=== PATIENT | male | born 1950 | race Caucasian/White ===

== ENCOUNTER → 2017-05-08 | Outpatient (REF) | payer BC | LOC: M LAB REF 13:20 | PROVIDERS: ATTEND Internal Medicine Pulmonary Disease | DX: J44.1 Chronic obstructive pulmonary disease with (acute) exacerbation (principal) ==

== ENCOUNTER → 2017-07-16 | Outpatient (REF) | payer BC ==
[2017-07-16 14:04] LABS: INR 0.83; PROTHROMBIN TIME 11.4 SECONDS (12.4-14.5)
== END ==
LOC: M LAB REF 12:50
DX: Z51.81 Encounter for therapeutic drug level monitoring (principal); Z79.01 Long term (current) use of anticoagulants; K70.9 Alcoholic liver disease, unspecified
CPT/HCPCS: 85610

== ENCOUNTER → 2019-01-27 | Outpatient (CLI) | payer BC ==
--- NOTE | 2019-01-27 08:22 | REP ---
Low-dose lung screening CT of the chest: The study is performed without IV contrast. Images are presented at lung windowing only. Comparisons are chest CT studies dated 10/14/2016 and 07/22/2013. There are no lung masses or nodules. There are no infiltrates or effusions. There is a chronic calcified endobronchial lesion within the proximal main bronchus of the right middle lobe, unchanged. There is chronic postobstructive pneumonitis/scarring in the right middle lobe distal to this , unchanged. There is chronic curvilinear scarring inferiorly in the lingula, unchanged. There is a tiny calcified granuloma in the lateral segment right middle lobe on image 57, unchanged. 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 There is a coronary artery calcified atheroma, unchanged. Impression: There are chronic stable findings as described. Category 1 low-dose lung screening CT. The probability of malignancy is less than 1%. Depending on risk factors, consider annual follow-up low-dose lung screening CT. Electronically Signed by Checo Ruiz MD 01/27/2019 08:13 A
== END ==
LOC: M RAD 07:43
PROVIDERS: ATTEND Internal Medicine Pulmonary Disease
DX: Z12.2 Encounter for screening for malignant neoplasm of respiratory organs (principal); Z87.891 Personal history of nicotine dependence

== ENCOUNTER 2019-09-20 12:51 | Emergency (ER) | payer BC ==
[~2019-09-20] VITALS: Ht 170.2 cm; Wt 86.2 kg
[2019-09-20 12:52] VITALS: BP 190/79
[2019-09-20 13:49] LABS: BASO # 0.1 10^3/uL (0.0-0.2); BASO % 0.7 % (0.0-1.0); EOS # 0.1 10^3/uL (0.0-0.5); EOS % 1.4 % (0.0-3.0); HEMATOCRIT 47.1 % (42.0-52.0); HEMOGLOBIN 15.3 g/dl (13.5-17.5); LYMPH # 1.4 10^3/uL (1.5-5.0); MEAN CORPUSCULAR HEMOGLOBIN 31.4 pg (27.0-33.0); MEAN CORPUSCULAR HGB CONC 32.5 g/dl (32.0-36.5); MEAN CORPUSCULAR VOLUME 96.5 fl (80.0-96.0); MONO # 0.7 10^3/uL (0.0-0.8); MONO % 9.2 % (0.0-5.0); NEUTROPHILS # 5.4 10^3/uL (1.5-8.5); NEUTROPHILS % 70.4 % (36.0-66.0); PLATELET COUNT, AUTOMATED 174 10^3/uL (150-450); RED BLOOD COUNT 4.88 10^6/uL (4.30-6.10); WHITE BLOOD COUNT 7.7 10^3/uL (4.0-10.0)
[2019-09-20 14:08] LABS: ALBUMIN 4.3 GM/DL (3.2-5.2); BILIRUBIN,DIRECT 0.2 MG/DL (0.0-0.2); BILIRUBIN,TOTAL 0.6 MG/DL (0.2-1.0); CALCIUM LEVEL 9.7 MG/DL (8.8-10.2); CREATININE FOR GFR 1.43 MG/DL (0.70-1.30); GLOMERULAR FILTRATION RATE 52.4 (>49); POTASSIUM SERUM 4.3 MEQ/L (3.5-5.1); TOTAL PROTEIN 7.3 GM/DL (6.4-8.2)
[2019-09-20] MEDS ORDERED: ISOVUE-370 76% 100ML VIAL (Q9967) As Ordered ONE (14:23)
[2019-09-20 14:31] LABS: APPEARANCE, URINE HAZY (CLEAR); BACTERIA, URINE AUTO NEGATIVE (NEGATIVE); BILIRUBIN, URINE AUTO NEGATIVE (NEGATIVE); BLOOD, URINE BLOOD NEGATIVE (NEGATIVE); COLOR, URINE YELLOW (YELLOW); GLUCOSE, URINE (UA) AUTO NEGATIVE (NEGATIVE); KETONE, URINE AUTO TRACE mg/dL (NEGATIVE); LEUKOCYTE ESTERASE, URINE AUTO NEGATIVE (NEGATIVE); MUCUS, URINE SMALL (NEGATIVE); NITRITE, URINE AUTO NEGATIVE (NEGATIVE); PROTEIN, URINE AUTO 1+ mg/dL (NEGATIVE); RBC, URINE AUTO 2 /HPF (0-3); SPECIFIC GRAVITY URINE AUTO 1.023 (1.002-1.035); SQUAMOUS EPITHELIAL CELL UR AU 1 /HPF (0-6); UROBILINOGEN, URINE AUTO 0.2 mg/dL (0.0-2.0); WBC, URINE AUTO 7 /HPF (0-3)
--- NOTE | 2019-09-20 14:51 | REP ---
Clinical: Left-sided abdominal pain. Technique: Axial contrast enhanced images from the lung bases to the pubic symphysis with coronal and sagittal re-formations using 100 ml Isovue 370 intravenous contrast material. Findings: Focal area of fatty infiltration just lateral to the collapsed normal appearing descending colon suggests focal epiploic appendagitis (images 84 - 99). Few scattered colonic diverticula noted without acute diverticulitis. No bowel obstruction or further acute inflammatory process. Normal terminal ileum and appendix are identified in the right lower quadrant. Hepatomegaly and fatty infiltration to the liver noted. Spleen, pancreas, gallbladder, bilateral adrenal glands and kidneys are normal. Pelvis demonstrates normal bladder and age appropriate prostate/seminal vesicles. Small fat containing left inguinal hernia identified. No ascites. No free air. No adenopathy. Atherosclerotic changes to the aorta and vasculature without aneurysm or dissection. Musculoskeletal structures demonstrate age-related degenerative changes without focal acute abnormality. Impression: 1. Findings most compatible with acute epiploic appendagitis along the distal descending colon. 2. No bowel obstruction or acute inflammatory process to the enteric system otherwise appreciated. 3. Few scattered colonic diverticula without acute diverticulitis. 4. Hepatomegaly and fatty infiltration to the liver without focal hepatic lesion. Electronically Signed by Nghia Garza MD 09/20/2019 02:42 P
[2019-09-20] MEDS ORDERED: ACETAMINOPHEN 325 MG TAB PO ONE (15:15)
[2019-09-20] MEDS ORDERED: KETOROLAC 30 MG/ML VIAL (J1885) IV ONE (15:15)
--- NOTE | 2019-09-21 15:39 | ED PDOC ---
Post-Departure Follow-Up dr diamond faxed fomral report of ct abd/p for fu [place] Barboza MD Sep 21, 2019 15:39
== END 2019-09-20 15:35 | disposition home or self-care (01) ==
LOC: M ED 12:51
DX: K65.9 Peritonitis, unspecified (principal); K57.30 Diverticulosis of large intestine without perforation or abscess without bleeding; K21.9 Gastro-esophageal reflux disease without esophagitis; K76.0 Fatty (change of) liver, not elsewhere classified; R16.0 Hepatomegaly, not elsewhere classified; J45.909 Unspecified asthma, uncomplicated; F17.210 Nicotine dependence, cigarettes, uncomplicated
CPT/HCPCS: 74177; 80048; 80076; 81001; 83690; 85025; 96374; 99284; J1885; Q9967

== ENCOUNTER → 2020-03-02 | Outpatient (CLI) | payer BC ==
[~2020-03-02] MED LIST: ADVA115A INH; ALPR0.5T3; ASPI81TA86 PO; ATOR40TA75 PO; CLOP75TA2; FENO145T7 PO; FLUTISP INH; LEVO50TA5 PO; MAGN400C2 PO; METO1TAB32 PO; PANT40TA29 PO
== END ==
LOC: M LABSMTC 11:45
PROVIDERS: ATTEND Anesthesiology
DX: Z01.812 Encounter for preprocedural laboratory examination (principal); Z20.828 Contact with and (suspected) exposure to other viral communicable diseases
CPT/HCPCS: C9803; U0003

== ENCOUNTER 2020-03-07 08:06 | Day surgery (SDC) | payer BC ==
[~2020-03-07] VITALS: Ht 170.2 cm; Wt 78.9 kg
[~2020-03-07 08:06] MED LIST changes: +NS 1,000 ML IV ONE
[2020-03-07] MEDS ORDERED: propofoL 200 MG/20 ML VIAL As Ordered ONE ×2 (09:26→09:37)
[2020-03-07 10:05] VITALS: BP 118/61
--- NOTE | 2020-03-08 11:38 | ROOR ---
Patient Name: Srini Teran Procedure Date: 03/07/2020 8:41 AM Date of : 1950 Age: 69 Room: [facility] Gender: Male Note Status: Finalized Procedure: Colonoscopy Indications: High risk colon cancer surveillance: Personal history of colonic polyps Providers: Viktor HENDERSON MD Referring MD: MEGAN NAVAS JR, MD Requesting Provider: Medicines: Monitored Anesthesia Care Complications: No immediate complications. Procedure: Pre-Anesthesia Assessment: - The heart rate, respiratory rate, oxygen saturations, blood pressure, adequacy of pulmonary ventilation, and response to care were monitored throughout the procedure. The Colonoscope was introduced through the anus and advanced to the cecum, identified by appendiceal orifice and ileocecal valve. The colonoscopy was performed without difficulty. The patient tolerated the procedure well. The quality of the bowel preparation was good. Findings: The perianal and digital rectal examinations were normal. Five sessile polyps were found in the sigmoid colon, splenic flexure and hepatic flexure. The polyps were small in size. These polyps were removed with a cold snare. Resection and retrieval were complete. Mild sigmoid diverticulosis and small internal hemorrhoids. The exam was otherwise without abnormality on direct and retroflexion views. Impression: - Five small polyps in the sigmoid colon, at the splenic flexure and at the hepatic flexure, removed with a cold snare. Resected and retrieved. - Mild sigmoid diverticulosis and small internal hemorrhoids. - The examination was otherwise normal on direct and retroflexion views. Recommendation: - Repeat colonoscopy in 3 years for surveillance. - Resume Plavix (clopidogrel) at prior dose in 2 days. Viktor HENDERSON MD 03/07/2020 9:44:38 AM Number of Addenda: 0 Note Initiated On: 03/07/2020 8:41 AM Estimated Blood Loss: Estimated blood loss: none.
== END 2020-03-07 10:14 | disposition home or self-care (01) ==
LOC: M OPP 08:06
PROVIDERS: ATTEND Internal Medicine Gastroenterology
DX: Z12.11 Encounter for screening for malignant neoplasm of colon (principal); Z86.010 Personal history of colon polyps; Z80.0 Family history of malignant neoplasm of digestive organs; K63.5 Polyp of colon; I25.10 Atherosclerotic heart disease of native coronary artery without angina pectoris; I73.9 Peripheral vascular disease, unspecified; E03.9 Hypothyroidism, unspecified; J44.9 Chronic obstructive pulmonary disease, unspecified; F17.220 Nicotine dependence, chewing tobacco, uncomplicated; K57.30 Diverticulosis of large intestine without perforation or abscess without bleeding; Z79.82 Long term (current) use of aspirin; Z79.899 Other long term (current) drug therapy; Z85.21 Personal history of malignant neoplasm of larynx

== ENCOUNTER → 2020-03-23 | Outpatient (CLI) | payer BC ==
[~2020-03-23] MED LIST changes: -NS 1,000 ML IV ONE
--- NOTE | 2020-03-29 13:03 | REP ---
LOW-DOSE LUNG SCREENING EXAM COMPARISON: 01/27/2019. FINDINGS: The bilateral lung ruffin are relatively well-aerated. There is a chronic partially calcified endobronchial lesion in the proximal right middle lobe bronchus causing postobstructive chronic fibroatelectatic changes, which remain stable. There is an accessory bronchus arising medially from the bronchus intermedius, which demonstrates a small amount of endobronchial secretions or calcifications similar to prior examination. Minimal scattered scarring is identified at the lung bases. There is a small 3-mm noncalcified somewhat triangular density in the left lower lobe (Image 48), which is a new finding. No further consolidation, nodule, or mass lesion noted. No effusion. No pneumothorax. Atherosclerotic changes to the thoracic aorta and coronary arteries again noted. IMPRESSION: * Chronic changes as described above remain stable. * New 3-mm noncalcified density in the left lower lobe. This is now a lung-RADS Category 2 examination. A 12 month low-dose CT follow-up examination is recommended. MTDD
== END ==
LOC: M RAD 10:54
PROVIDERS: ATTEND Internal Medicine Pulmonary Disease
DX: Z12.2 Encounter for screening for malignant neoplasm of respiratory organs (principal); F17.218 Nicotine dependence, cigarettes, with other nicotine-induced disorders; R91.8 Other nonspecific abnormal finding of lung field; I70.0 Atherosclerosis of aorta; I25.10 Atherosclerotic heart disease of native coronary artery without angina pectoris

== ENCOUNTER 2020-08-10 06:49 | Inpatient (IN) | payer BC, MEDICARE ==
[2020-08-10] VITALS (9 sets, daily range): BP systolic 97–139; BP diastolic 58–87; O2SAT 92–95
[~2020-08-10] VITALS: Ht 170.2 cm; Wt 86.5 kg
--- OUTSIDE RECORDS SUMMARY | 2020-08-10 07:00 | CCD | Continuity of Care Document ---
Author Author KATELYN DANGELO, Srini AMADOR AN Organization Unknown Address [address] [address] Phone [phone] Care Team Providers Care Medical Instrument Cable Fabricator Name Role Phone Checo Kim M.D. AUTM [phone] Walter Bo AUTM [phone] Yuri Kaplan MD @ [facility] AUTM [phone] Julio C Mansfield MD AUTM [phone] AUTM Unavailable Problems Active Problems Provider Date History Personal Malignant Neoplasm Larynx Sheridan L Page DO Onset: 06/10/2012 Chronic rhinitis Sheridan L Page DO Onset: 06/10/2012 Iatrogenic hypothyroidism Sheridan L Page DO Onset: 012 Edema of larynx Sheridan L Page DO Onset: 06/10/2012 Gastroesophageal reflux disease Sheridan L Page DO Onset: 1 08/11/2011 Panic disorder without agoraphobia Sheridan L Page DO Onset : 06/10/2012 Cough Sheridan L Page DO Onset: 06/10/2012 Globus Sensation Sheridan L Page DO Onset: 06/10/2012 Heartburn Viktor Cao MD Onset: 06/10/2012 Internal hemorrhoids without complication Viktor Cao MD Onset: 06/10/2012 Benign neoplasm of colon Viktor Cao MD Onset: 06/10/20 12 Screening for malignant neoplasm of colon Viktor Cao MD Onset: 06/10/2012 Radiation injury Sheridan L Page DO Onset: 06/10/2012 Family history of malignant neoplasm of gastrointestinal tra ct Viktor Cao MD Onset: 06/10/2012 Neoplasm of uncertain behavior of larynx Viktor Cao MD Onset: 06/10/2012 Hypothyroidism Sheridan L Page DO Onset: 06/10/2012 Abnormal weight gain Sheridan L Page DO Onset: 06/10/2012 Candidiasis Sheridan L Page DO Onset: 06/10/2012 Dysphagia Sheridan L Page DO Onset: 06/10/2012 Malignant tumor of glottis Sheridan L Page DO Onset: 2011 Anxiety state Sheridan Cortés Page DO Onset: 06/10/2012 Deviated nasal septum Sheridan Cortés Page DO Onset: 06/10/2012 Hypertrophy of nasal turbinates Sheridan Cortés Page DO Onset: 1 08/11/2011 Epistaxis Teto Quan MD Onset: 05/17/2013 Other Nonspecified Abnormal Finding Of Lung Field Miryam Nogueira M.D. Onset: 08/04/2013 Chronic obstructive lung disease Juan Scott Onset: 08/04/2013 Difficulty breathing Miryam Nogueira M.D. Onset: Posterior rhinorrhea Miryam Nogueira M.D. Onset: Ex-smoker Miryam Nogueira M.D. Onset: 10/2013 Body Mass Index 28.0-28.9 Adult Dorcas Scott Onset: 09/16/2013 Overweight Miryam Nogueira M.D. Onset: 10/2013 History of polyp of colon Viktor Cao MD Onset: 014 Difficulty speaking Teto Quan MD Onset: 05/05/2014 Pulmonary emphysema Miryam Nogueira M.D. Onset: Cyst of oral soft tissue Teto Quan MD Onset: 10/27/19 15 Malignant tumor of larynx Teto Quan MD Onset: 015 Centriacinar emphysema Miryam Nogueira M.D. 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 On set: 10/25/2015 Other nonspecific abnormal finding of lung field Miryam Solano M.D. Onset: 10/30/2015 Chronic obstructive pulmonary disease with (acute) exa cerbation Miryam Nogueira M.D. Onset: 04/21/2018 Hemoptysis Miryam Nogueira M.D. Onset: Disorder of lip Teto Quan MD Onset: 04/21/2018 Nicotine dependence, cigarettes, with other nicotine-i nduced disorders Teto Quan MD Onset: 04/21/2018 Essential hypertension Viktor Cao MD Onset: 09/07/2019 Social History Type Date Description Comments Sex Unknown ETOH Use 8-10 Drinks per Day Tobacco Use Start: Unknown End: Unknown Patient is a former smoker hx: 1 1/2ppd x 40yrs, quit cigs 2010, smoked cigars x 5 yrs and quit 2015 Tobacco Use Start: Unknown Patient is a current smoker, smo kes every day 2 cigars daily since late december 2019 Smoking Status Reviewed: 03/09/20 Patient is a former smoker hx : 1 1/2ppd x 40yrs, quit cigs 2010, smoked cigars x 5 yrs and quit 2015 Allergies, Adverse Reactions, Alerts Description No Known Drug Allergies Medications Active Medications SIG Qnty Indications Ordering Provide r Date Chantix 0.5mg Tablets starting month sarabjit as directed 1taely Feliciano MD 03/09/2020 Chantix 1mg Tablets co ntinuing month paks 1taely Feliciano MD 03/09/2020 Acapella Misc G reen. use twice daily and prn R91.8 Miryam Nogueira M.D. Albuterol Sulfate (2 .5mg/3ML) 0.083% Nebulizer 1 vial every 4 hours as needed dx: j44.9 360ml J44.9 Miryam Nogueira M.D. 07/25/2015 Aerochamber Plus Misc as directed with jamee 1units Miryam Nogueira M.D. Fluticasone Propionate 50mcg/Act Suspension 2 sprays to each nostril daily/prn 1bottles J31.0 Miryam Nogueira M.D. 02/07/2014 Ventolin HFA 108(90Base) mcg/Act A erosol 2 puffs q4 hour prn 18gm Meng Feliciano MD 08/04/2013 Atorvastatin Calcium 40mg Tablets once a day Unknown Metoprolol Succinate ER 25mg Tablets ER 24HR 1 by mouth every day Unknown 000 Clopidogrel Bisulfate 75mg Tablets by mouth daily Unknown Benzonatate 100mg Capsules 1 tab by mouth daily Unknown Advair HFA 115-21mcg/Act Aerosol 2 puff twice a day Unknown Magnesium Oxide 500mg Tablets 1 by mouth every day 60tabs Unknown Fenofibrate 145mg Tablets 1 p o qd Unknown Pantoprazole Sodium 40mg Tablets D R 1 by mouth every day 60tabs Unknown Nitrostat 0.4mg Tablets Sub sublingual every 5 mins x 3 doses for chest pain 60tabs Unknown Aspirin Ec 81mg Tablets DR 1 po qd 30tabs Unknown Levothyroxine Sodium 50mcg Tablets one po daily 30tabs 244.8 Unknown Alprazolam 0.5mg Tablets 1/2 to 1 tab bid prn 30tabs 300.00 Unknown History Medications Amoxicillin 500mg Tablets take 4 tablets by mouth 1 hour prior to arrival time for procedure. 4tabs Viktor Cao MD 03/01/2020 - 07/09/2019 Immunizations Description No Information Available Vital Signs Date Vital Result Comment 06/27/2020 9:13am Height 67 inches 5'7" Weight 187.00 lb BMI (Body Mass Index) 29.3 kg/m2 Ragan Body Weight 148 lb Weight 84.823 kg BSA (Body Surface Area) 1.97 m2 03/09/2020 10:09am BP Systolic 130 mmHg BP Diastolic 78 mmHg Heart Rate 90 /min O2 % BldC Oximetry 96 % Room Air Height 67 inches 5'7" Weight 175.00 lb BMI (Body Mass Index) 27.4 kg/m2 Ragan Body Weight 148 lb Weight 79.380 kg BSA (Body Surface Area) 1.91 m2 Results Test Acquired Date Facility Test Result H/L Range Note FVL/[place] 03/09/2020 [facility] SEE IMAGE FVC-Pred 3.97 L FVC-Pre 2.44 L FVC-%Pred-Pre 61 L FVC-LLN 3.11 L Fev1-Pred 2.92 L Fev1-Pre 1.40 L Fev1-%Pred-Pre 48 L Fev1-LLN 2.19 L Fev6-Pred 3.73 L Fev6-Pre 2.41 L Fev6-%Pred-Pre 64 L Fev6-LLN 2.90 L Qco6xas-Ywoz 74 % Fka0aps-Pts 57 % Iso2cvi-%Pred-Pre 77 % Ofz9mhb-ZOV 64 % Phb9mpj-Daaw 94 % Phu3ggi-Cdw 99 % Ppx0srb-%Pred-Pre 104 % FEFMax-Pred 7.80 L/E/sec FEFMax-Pre 3.39 L/E/sec FEFMax-%Pred-Pre 43 L/E/sec FEFMax-LLN 5.67 L/E/sec Aae8110-Tnfc 2.25 L/E/sec Cxc0944-Gdg 0.67 L/E/sec Xev8936-%Pred-Pre 29 L/E/sec Htb4314-VSJ 0.78 L/E/sec ExpTime-Pre 6.52 sec Ohx9jdv8-Odfq 78 % Fki9sqm6-Ufa 58 % Mjo9yfo4-%Pred-Pre 74 % Tmo2uov5-TJH 69 % Laboratory test finding 03/07/2020 [facility] [address] [id number] [phone] Pathology Request For Service (SEE NOTE) 1 1 FINAL DIAGNOSIS A - Colon, splenic flexure polyp, polypectomy: Tubular adenoma, fragments. Separate fragments of hyperplastic polyp. B - Colon, hepatic flexure polyp, polypectomy: Tubular adenoma, fragments. Separate fragments of hyperplastic polyp. C - Sigmoid colon polyp, polypectomy: Tubular adenoma, fragments. Separate fragments of hyperplastic polyp. 03/08/2020 - 1150 CLINICAL DIAGNOSIS Colon polyps, family history colon cancer 03/07/2020 - 1417 GROSS DIAGNOSIS A - Received in formalin labeled "colon polyps splenic flexure" consists of a fragment of tissue, 0.2 x 0.2 x 0.2 cm. All in one. B - Received in formalin labeled "colon polyp hepatic flexure" consists of a fragment of tissue, 0.3 x 0.2 x 0.1 cm. All in one. C - Received in formalin labeled "polyp sigmoid colon" consists of a fragment of tissue, 0.2 x 0.2 x 0.1 cm. All in one. 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 ntithrombotics/antiplatelets Assessments Date Code Description Provider 06/27/2020 Z85.21 Personal history of malignant ne oplasm of larynx Teto Quan MD 03/09/2020 J44.9 Chronic obstructive pulmonary di sease, unspecified Meng Feliciano MD 03/09/2020 R91.8 Other nonspecific abnormal findi ng of lung field Meng Feliciano MD 03/09/2020 F17.218 Nicotine dependence, cigarettes, with other nicotine-induced disorders Meng Feliciano MD 03/09/2020 Z79.02 halfway (current) use of antit hrombotics/antiplatelets Meng Feliciano MD 03/07/2020 Z12.11 Encounter for screening for tammy gnant neoplasm of colon Viktor Cao MD 03/07/2020 Z86.010 Personal history of colonic poly ps Viktor Cao MD 03/07/2020 D12.3 Benign neoplasm of transverse co latoya Viktor Cao MD 03/07/2020 D12.5 Benign neoplasm of sigmoid colon Viktor Cao MD Plan of Treatment Future Appointment(s):* 10/18/2020 1:30 pm - Meng Feliciano MD at [facility] Pulmonary/Thoracic 06/27/2020 - Teto Quan MD* Z85.21 Personal history of malignant neoplasm of larynx Functional Status Functional Condition Comment Date Status Independent with all ADL's Activ e Independent with all IADL's Acti ve Mental Status Mental Condition Comment Date Status Cognitive ability not impaired A ctive Referrals Refer to Dr Reason for Referral Status Appt Date Radiology/Procedure PER MARIN AT [facility] [id number] Closed
--- OUTSIDE RECORDS SUMMARY | 2020-08-10 07:00 | CCD | Continuity of Care Document ---
Author Author Srini Kaplan MD Organization Unknown Address [address] [facility] [address] [place] [address] Phone [phone] Care Team Providers Care Cable Television Access Coordinator Name Role Phone Miryam Nogueira Jamison AUTM [phone] Teto Quan MD AUTM [phone] Piter Troncoso MD AUTM [phone] AUTM Unavailable Yuri Kaplan JR, MD AUTM Unavailable Problems Active Problems Provider Date Malignant neoplastic disease Shraddha Yang DO Onset: 12/2012 Nondependent alcohol abuse, continuous Shraddha Yang DO O nset: 12/04/2012 Alcoholic fatty liver Shraddha Yang DO Onset: 12/04/2012 Coronary arteriosclerosis Shraddha Yang DO Onset: 013 Social History Type Date Description Comments Sex Unknown ETOH Use consumes 4-5 beers per day Tobacco Use Start: Unknown End: Unknown Patient is a former smoker 1 07/01 ppd x 35 yrs, quit 2010 Tobacco Use Start: Unknown Patient is a current smoker, smo kes some days occasional cigars Allergies, Adverse Reactions, Alerts Description No Known Drug Allergies Medications Active Medications SIG Qnty Indications Ordering Provide r Date Atorvastatin Calcium 80mg Tablets 1 by mouth every day 90tabs Yuri Kaplan MD 07/29/2020 Clopidogrel Bisulfate 75mg Tablets Take One Tablet By Mouth Every Day 90tabs Yuri Kaplan MD 04/04/2020 Metoprolol Succinate ER 25mg Tablets ER 24HR 1 by mouth every day 90tabs Shraddha Yang DO 12/29 Magnesium 500mg Capsules 1 by mouth bid Shraddha Yang DO 01/20/2018 Ventolin HFA 108(90Base) mcg/Act A erosol 2 puffs four times a day as needed 18gm Shraddha YangDO 09/15/2015 Advair HFA 115-21mcg/Act Aerosol Inhale Two Puffs By Mouth Twice A Day 12units Shraddha Yang,DO 0 11/23/2013 Aspirin 81mg Tablets 1 po qd Shraddha YangDO 12/04/2012 Nitrostat 0.4mg Tablets Sub one under tongue q 5 minutes x 3 prn for chest discomfort 25tabs Burak Beavers M.D. 12/04/2012 Fluticasone Propionate 50mcg/Act Suspension [place] 2 Sprays In Each Nostril AT Bedtime as Needed 16units Shraddha Yang DO 12/04/2012 Levothyroxine Sodium 50mcg Tablets Take One Tablet By Mouth Every Day 90tabs Shraddha Yang, Fenofibrate 145mg Tablets Take 1 Tablet By Mouth Once Daily 90tabs Shraddha Yang DO 12/04/2012 Pantoprazole Sodium 40mg Tablets D R take one tablet by mouth every day 90tabs Yuri Kaplan MD 12/04/2012 Alprazolam 0.5mg Tablets 1 by mouth nightly as needed anxiety use only as needed 30tabs Col daniela Kaplan MD Benzonatate 100mg Capsules take 1 capsule by mouth every 8 hours as needed 180caps Yuri mcnulty MD Immunizations CPT Code Status Date Vaccine Lot # [id number] Refused 06/07/2013 Fluvirin Virus Vaccine Vital Signs Date Vital Result Comment 07/26/2020 8:03am BP Systolic 126 mmHg BP Diastolic 76 mmHg Heart Rate 64 /min Height 66 inches 5'6" Weight 184.00 lb BMI (Body Mass Index) 29.7 kg/m2 03/02/2020 9:32am BP Systolic 130 mmHg BP Diastolic 76 mmHg Heart Rate 78 /min Height 66 inches 5'6" Weight 176.00 lb O2 % BldC Oximetry 94 % BMI (Body Mass Index) 28.4 kg/m2 Results Test Acquired Date Facility Test Result H/L Range Note Complete Blood Count 07/26/2020 [facility] [place]: [place] [address] [phone] WBC 5.9 x10*3/UL 4.1 - 10.9 RBC 4.81 x10*6/UL 4.20 - 6.30 Hemoglobin 15.0 g/dL 12.0 - 18.0 Hematocrit 43.3 % 37.0 - 51.0 MCV 89.9 fL 80.0 - 97.0 MCH 31.1 pg 26.0 - 32.0 MCHC 34.6 g/dL 31.0 - 38.0 RDW 14.6 % High 11.6 - 13.7 PLT 222 x10*3/UL 140 - 440 MPV 9.9 FL 7.8 - 11.0 Lymph % 28.8 % 10.0 - 58.5 Mid % 5.4 % 1.7 - 9.3 Neut % 65.8 % 37.0 - 92.0 Lymph # 1.7 x10*3/UL 0.6 - 4.1 Mid # 0.3 x10*3/UL 0.1 - 0.6 Neut # 3.9 x10*3/UL 2.0 - 7.8 Laboratory test finding 07/26/2020 [facility] [place]: [place] [address] [phone] PSA 0.52 ng/mL <4.00 1 Comprehensive Chem Profile 07/26/2020 [facility] [place]: [place] [address] [phone] Glucose 122 mg/dL High 74 - 99 2 BUN 10 mg/dL 7 - 18 Creatinine 1.1 mg/dL 0.6 - 1.3 Sodium 138 mEq/L 136 - 145 Potassium 4.9 mEq/L 3.5 - 5.1 Chloride 100 mEq/L 98 - 107 Carbon Dioxide 30 mEq/L 21 - 32 Calcium 9.5 mg/dL 8.5 - 10.1 Alk. Phosphatase 84 mg/dL 46 - 116 Total Bilirubin 0.4 mg/dL 0.2 - 1.0 Ast (Sgot) 38 U/L High 15 - 37 Alt (SGPT) 47 U/L 12 - 78 Albumin 4.2 g/dL 3.4 - 5.0 Total Protein 7.4 g/dL 6.4 - 8.2 A/G Ratio 1.31 CALC 1.00 - 1.90 GFR >= 60 mL/min >60 GFR >= 60 mL/min >60 3 Lipid Profile 07/26/2020 [facility] [place]: [place] [address] [phone] Cholesterol 171 mg/dL 131 - 200 Triglycerides 142 mg/dL 30 - 150 HDL Cholesterol 45 mg/dL 35 - 60 LDL (Calculated) 98 CALC 50 - 159 Laboratory test finding 07/26/2020 [facility] [place]: [place] [address] [phone] Thyroid Stimulating Hormone 2.26 uIU/mL 0.3 6 - 3.74 Laboratory test finding 03/07/2020 [facility] [address] [place] [address] [phone] Pathology Request For Service (SEE NOTE) 4 1 This assay was performed on the Capricor EXL using the B- Galactosidase/CPRG methodology and should not be compared interchangeably with other methods. The PSA should not be used alone as a screening test for the presence or absence of malignant disease. 2 100-125 mg/dL PRE-DIABET ES/FASTING >126 mg/dL DIABETES/FASTING 3 CHRONIC KIDNEY DISEASE STAGI NG PER NKF STAGE I & II GFR >= 60 NORMAL TO MILDLY DECREASED STAGE III GFR 30-59 MODERATELY DECREASED STAGE IV GFR 15-29 SEVERELY DECREASED STAGE V GFR <15 VERY LITTLE GFR LEFT ESRD GFR <15 ON CENTRAL OFFICE TECHNICIAN 4 FINAL DIAGNOSIS A - Colon, splenic flexure [...] 03/08/2020 1151 Procedures Date Code Description Status 03/07/2020 [id number] Colonoscopy Completed 10/07/2013 [id number] Colonoscopy Completed 06/30/2011 [id number] Colonoscopy Completed Medical Devices Description No Information Available Encounters Type Date Location Provider Dx Diagnosis [facility] I[facility] Athscl heart disease of enterprise coronary artery w/o ang pctrs Z95.5 Presence of coronary angiopl asty implant and graft I73.9 Peripheral vascular disease, unspecified Z95.820 Peripheral vascular angiopla sty status w implants and grafts J44.9 Chronic obstructive pulmonar y disease, unspecified E03.9 Hypothyroidism, unspecified E78.00 Pure hypercholesterolemia, u nspecified F41.9 Anxiety disorder, unspecifie d C32.9 Malignant neoplasm of larynx , unspecified M25.512 Pain in left shoulder Z86.010 Personal history of colonic polyps Z12.5 Encounter for screening for malignant neoplasm of prostate Office Visit 03/02/2020 [facility] Z01.810 Encounter for preprocedural cardiovascul ar examination Z86.010 Personal history of colonic polyps I25.10 Athscl heart disease of [place] ve coronary artery w/o ang pctrs Z95.5 Presence of coronary angiopl asty implant and graft I73.9 Peripheral vascular disease, unspecified Z95.820 Peripheral vascular angiopla sty status w implants and grafts J44.9 Chronic obstructive pulmonar y disease, unspecified E03.9 Hypothyroidism, unspecified E78.00 Pure hypercholesterolemia, u nspecified Assessments Date Code Description Provider 07/26/2020 I25.10 Atherosclerotic hear t disease of enterprise coronary artery without angina pectoris Yuri Kaplan MD 07/26/2020 Z95.5 Presence of coronary angioplasty implant and graft Yuri Kaplan MD 07/26/2020 I73.9 Peripheral vascular disease, uns pecified Yuri Kaplan MD 07/26/2020 Z95.820 Peripheral vascular angioplasty status with implants and grafts Yuri Kaplan MD 07/26/2020 J44.9 Chronic obstructive pulmonary di sease, unspecified Yuri Kaplan MD 07/26/2020 E03.9 Hypothyroidism, unspecified Bg ins Eleonora Kaplan MD 07/26/2020 E78.00 Pure hypercholesterolemia, unspe cified Yuri Kaplan MD 07/26/2020 F41.9 Anxiety disorder, unspecified Co lltrice Kaplan MD 07/26/2020 C32.9 Malignant neoplasm of larynx, un specified Yuri Kaplan MD 07/26/2020 M25.512 Pain in left shoulder Yuri Kaplan MD 07/26/2020 Z86.010 Personal history of colonic poly ps Yuri Kaplan MD 07/26/2020 Z12.5 Encounter for screening for tammy gnant neoplasm of prostate Yuri Kaplan MD 03/02/2020 Z01.810 Encounter for preprocedural card iovascular examination Yuri Kaplan MD 03/02/2020 Z86.010 Personal history of colonic poly ps Yuri Kaplan MD 03/02/2020 I25.10 Atherosclerotic hear t disease of enterprise coronary artery without angina pectoris Yuri Kaplan MD 03/02/2020 Z95.5 Presence of coronary angioplasty implant and graft Yuri Kaplan MD 03/02/2020 I73.9 Peripheral vascular disease, uns pecified Yuri Kaplan MD 03/02/2020 Z95.820 Peripheral vascular angioplasty status with implants and grafts Yuri Kaplan MD 03/02/2020 J44.9 Chronic obstructive pulmonary di sease, unspecified Yuri Kaplan MD 03/02/2020 E03.9 Hypothyroidism, unspecified Bg ins Eleonora Kaplan MD 03/02/2020 E78.00 Pure hypercholesterolemia, unspe cified Yuri Kaplan MD Plan of Treatment Future Appointment(s):* 01/31/2021 8:20 am - [facility] 07/26/2020 - Yuri Kaplan MD* I25.10 Atherosclerotic heart disease of enterprise coronary artery without angina pectoris * Z95.5 Presence of coronary angioplasty implant and graft * I73.9 Peripheral vascular disease, unspecified * Z95.820 Peripheral vascular angioplasty status with implants and grafts * J44.9 Chronic obstructive pulmonary disease, unspecified * E03.9 Hypothyroidism, unspecified * E78.00 Pure hypercholesterolemia, unspecified * F41.9 Anxiety disorder, unspecified * C32.9 Malignant neoplasm of larynx, unspecified * M25.512 Pain in left shoulder * Z86.010 Personal history of colonic polyps * Z12.5 Encounter for screening for malignant neoplasm of prostate Functional Status Description No Information Available Mental Status Description No Information Available Referrals Description No Information Available
--- OUTSIDE RECORDS SUMMARY | 2020-08-10 07:00 | CCD | Continuity of Care Document ---
Author Author Srini Kaplan MD Organization Unknown Address [address] [facility] [address] [place] [address] Phone [phone] Care Team Providers Care Truck Hop Name Role Phone Miryam Nogueira Jamison AUTM [phone] Teto Quan MD AUTM [phone] Piter Troncoso MD AUTM AUTM Unavailable Yuri Kaplan JR, MD AUTM [...] 07/01 ppd x 35 yrs, quit 2010 Allergies, Adverse Reactions, Alerts Description No Known Drug Allergies Medications Active Medications SIG Qnty Indications Ordering Provide r Date Clopidogrel Bisulfate 75mg Tablets Take One Tablet By Mouth Every Day 90tabs Yuri Kaplan MD 04/04/2020 Atorvastatin Calcium 40mg Tablets 1 by mouth every day 90tabs Yuri Kaplan MD 07/27/2019 Metoprolol Succinate ER 25mg Tablets ER 24HR 1 by mouth every day 90tabs Shraddha Yang DO 12/29 Magnesium 500mg Capsules 1 by mouth bid Shraddha Yang DO 01/20/2018 Ventolin HFA 108(90Base) mcg/Act A erosol 2 puffs four times a day as needed 18gm Shraddha Yang DO 09/15/2015 Advair HFA 115-21mcg/Act Aerosol Inhale Two Puffs By Mouth Twice A Day 12units Shraddha Yang,DO 0 11/23/2013 Aspirin 81mg Tablets 1 po qd Shraddha Yang DO 12/04/2012 Nitrostat 0.4mg Tablets Sub one under tongue q 5 minutes x 3 prn for chest discomfort 25tabs Burak Beavers M.D. 12/04/2012 Fluticasone Propionate 50mcg/Act Suspension [place] 2 Sprays In Each Nostril AT Bedtime [...] Date Facility Test Result H/L Range Note Laboratory test finding 03/07/2020 [place] [address] [phone] Pathology Request For Service (SEE NOTE) 1 [...] 1151 Procedures Date Code Description Status 03/07/2020 [id number] Colonoscopy Completed 10/07/2013 [id number] Colonoscopy Completed Medical Devices Description No Information Available Encounters Type Date Location Provider Dx Diagnosis Office Visit 03/02/2020 9:20a [facility] Yuri Kaplan MD Z01.810 Encounter for preprocedural cardiovascul ar [...] u nspecified Assessments Date Code Description Provider 03/02/2020 Z01.810 Encounter for preprocedural card iovascular examination Yuri Kaplan MD 03/02/2020 Z86.010 Personal history of colonic poly ps Yuri Kaplan MD 03/02/2020 I25.10 Atherosclerotic hear t disease of [place] coronary artery without angina pectoris Yuri Kaplan MD 03/02/2020 Z95.5 Presence of coronary angioplasty implant and graft Yuri Kaplan MD 03/02/2020 I73.9 Peripheral vascular disease, uns pecified Yuri Kaplan MD 03/02/2020 Z95.820 Peripheral vascular angioplasty status with implants and grafts Yuri Kaplan MD 03/02/2020 J44.9 Chronic obstructive pulmonary di sease, unspecified Yuri Kaplan MD 03/02/2020 E03.9 Hypothyroidism, unspecified Bg Kaplan MD 03/02/2020 E78.00 Pure hypercholesterolemia, unspe cified Yuri Kaplan MD Plan of Treatment No Information Available Functional Status Description No Information Available Mental Status Description No Information Available Referrals Description No Information Available
--- OUTSIDE RECORDS SUMMARY | 2020-08-10 07:01 | CCD ---
Author Author [facility] Organization [facility] Address Unknown Phone Unavailable Care Team Providers Care Grill Chef Name Role Phone Celia, Shraddha DO Unavailable Unavailable Celia, Shraddha DO Unavailable Unavailable Celia, Shraddha DO Unavailable Unavailable Celia, Shraddha DO Unavailable Unavailable Celia, Shraddha DO Unavailable Unavailable Celia, Shraddha DO Unavailable Unavailable Celia, Shraddha DO Unavailable Unavailable Celia, Shraddha DO Unavailable Unavailable Celia, Shraddha DO Unavailable Unavailable Celia, Shraddha DO Unavailable Unavailable Celia, Shraddha DO Unavailable Unavailable Celia, Shraddha DO Unavailable Unavailable Celia, Shraddha DO Unavailable Unavailable Celia, Shraddha DO Unavailable Unavailable Celia, Shraddha DO Unavailable Unavailable Celia, Shraddha DO Unavailable Unavailable Celia, Shraddha DO Unavailable Unavailable Celia, Shraddha DO Unavailable Unavailable Celia, Shraddha DO Unavailable Unavailable Celia, Shraddha DO Unavailable Unavailable Celia, Shraddha DO Unavailable Unavailable Celia, Shraddha DO Unavailable Unavailable Celia, Shraddha DO Unavailable Unavailable Celia, Shraddha DO Unavailable Unavailable Celia, Shraddha DO Unavailable Unavailable Celia, Shraddha DO Unavailable Unavailable Celia, Shraddha DO Unavailable Unavailable Celia, Shraddha DO Unavailable Unavailable Celia, Shraddha DO Unavailable Unavailable Celia, Shraddha DO Unavailable Unavailable Celia, Shraddha DO Unavailable Unavailable Celia, Shraddha DO Unavailable Unavailable Celia, Shraddha DO Unavailable Unavailable Celia, Shraddha DO Unavailable Unavailable Celia, Shraddha DO Unavailable Unavailable Celia, Shraddha DO Unavailable Unavailable Celia, Shraddha DO Unavailable Unavailable Celia, Shraddha DO Unavailable Unavailable Celia, Shraddha DO Unavailable Unavailable Celia, Shraddha DO Unavailable Unavailable Celia, Shraddha DO Unavailable Unavailable Celia, Shraddha DO Unavailable Unavailable Celia, Shraddha DO Unavailable Unavailable Celia, Shraddha DO Unavailable Unavailable Celia, Shraddha DO Unavailable Unavailable Celia, Shraddha DO Unavailable Unavailable Celia, Shraddha DO Unavailable Unavailable Celia, Shraddha DO Unavailable Unavailable Celia, Shraddha DO Unavailable Unavailable Celia, Shraddha DO Unavailable Unavailable Celia, Shraddha DO Unavailable Unavailable Celia, Shraddha DO Unavailable Unavailable Celia, Shraddha DO Unavailable Unavailable Celia, Shraddha DO Unavailable Unavailable Celia, Shraddha DO Unavailable Unavailable Celia, Shraddha DO Unavailable Unavailable Celia, Shraddha DO Unavailable Unavailable Ceila, Shraddha DO Unavailable Unavailable Celia, Shraddha DO Unavailable Unavailable Celia, Shraddha DO Unavailable Unavailable Celia, Shraddha DO Unavailable Unavailable Celia, Shraddha DO Unavailable Unavailable Celia, Shraddha DO Unavailable Unavailable Celia, Shraddha DO Unavailable Unavailable Celia, Shraddha DO Unavailable Unavailable Celia, Shraddha DO Unavailable Unavailable Celia, Shraddha DO Unavailable Unavailable Celia, Shraddha DO Unavailable Unavailable Celia, Shraddha DO Unavailable Unavailable Celia, Shraddha DO Unavailable Unavailable Celia, Shraddha DO Unavailable Unavailable Celia, Shraddha DO Unavailable Unavailable [place], F Yuri DANGELO Unavailable Unavailable [place] F Yuri DANGELO Unavailable Unavailable [place] F Yuri DANGELO Unavailable Unavailable [place] F Yuri DANGELO Unavailable Unavailable EusebioLaine MD Unavailable Unavailable EusebioLaine MD Unavailable Unavailable [place] MD Unavailable Unavailable Eusebio F Yuri DANGELO Unavailable Unavailable [place] F Yuri DANGELO Unavailable Unavailable Eusebio F Yuri DANGELO Unavailable Unavailable Eusebio, F Yuri DANGELO Unavailable Unavailable Eusebio, F Yuri DANGELO Unavailable Unavailable [place], F Yuri DANGELO Unavailable Unavailable [place], F Yuri DANGELO Unavailable Unavailable Eusebio, F Yuri DANGELO Unavailable Unavailable [place], F Yuri DANGELO Unavailable Unavailable Eusebio, F Yuri DANGELO Unavailable Unavailable Eusebio, F Yuri DANGELO Unavailable Unavailable Eusebio, F Yuri ADNGELO Unavailable Unavailable [place], F Yuri DANGELO Unavailable Unavailable Eusebio F Yuri DANGELO Unavailable Unavailable Eusebio F Yuri DANGELO Unavailable Unavailable [place], F Yuri DANGELO Unavailable Unavailable [place], F Yuri DANGELO Unavailable Unavailable Eusebio, F Yuri DANGELO Unavailable Unavailable [place], F Yuri DANGELO Unavailable Unavailable Eusebio, F Yuri DANGELO Unavailable Unavailable EusebioLaine MD Unavailable Unavailable [place] MD Unavailable Unavailable EusebioLaine MD Unavailable Unavailable EusebioLaine MD Unavailable Unavailable [place] MD Unavailable Unavailable EusebioLaine MD Unavailable Unavailable EusebioLaine MD Unavailable Unavailable [place] MD Unavailable Unavailable EusebioLaine MD Unavailable Unavailable EusebioLaine MD Unavailable Unavailable [place] MD Unavailable Unavailable EusebioLaine MD Unavailable Unavailable [place] MD Unavailable Unavailable [place] MD Unavailable Unavailable [place] MD Unavailable Unavailable EusebioLaine MD Unavailable Unavailable [place] MD Unavailable Unavailable EusebioLaine MD Unavailable Unavailable EusebioLaine MD Unavailable Unavailable EusebioLaine MD Unavailable Unavailable EusebioLaine MD Unavailable Unavailable EusebioLaine MD Unavailable Unavailable [place] MD Unavailable Unavailable EusebioLaine MD Unavailable Unavailable [place] MD Unavailable Unavailable EusebioLaine MD Unavailable Unavailable EusebioLaine MD Unavailable Unavailable EusebioLaine MD Unavailable Unavailable [place] MD Unavailable Unavailable [place] MD Unavailable Unavailable EusebioLaine MD Unavailable Unavailable [place] MD Unavailable Unavailable [place] MD Unavailable Unavailable EusebioLaine MD Unavailable Unavailable EusebioLaine MD Unavailable Unavailable [place]aine frazier MD Unavailable Unavailable EusebioLaine MD Unavailable Unavailable [place] MD Unavailable Unavailable [place] MD Unavailable Unavailable EusebioLaine MD Unavailable Unavailable EusebioLaine MD Unavailable Unavailable [place] MD Unavailable Unavailable [place] frazier MD Unavailable Unavailable EusebioLaine MD Unavailable Unavailable [place] MD Unavailable Unavailable [place] MD Unavailable Unavailable [place] MD Unavailable Unavailable [place] MD Unavailable Unavailable EusebioLaine MD Unavailable Unavailable [place] MD Unavailable Unavailable [place] MD Unavailable Unavailable [place] MD Unavailable Unavailable EusebioLaine MD Unavailable Unavailable EusebioLaine MD Unavailable Unavailable [place] MD Unavailable Unavailable [place]aine frazier MD Unavailable Unavailable Laine Kaplan MD Unavailable Unavailable Laine Kaplan MD Unavailable Unavailable [place] frazier MD Unavailable Unavailable Kirsten-Edsonhromi Piterjeremiah DANGELO Unavailable Unavailabl e Ranlacibaran-Jahromi Piterjeremiah DANGELO Unavailable Unavailabl e Chazbaran-Jahromi Piterjeremiah DANGELO Unavailable Unavailabl e Chazbarkacey-Jahromi Piterjeremiah DANGELO Unavailable Unavailabl e Chazbaran-Jahromi Piterjeremiah DANGELO Unavailable Unavailabl e Ranjbaran-Jahromi Piterjeremiah DANGELO Unavailable Unavailabl e Chazbaran-Jahromi Piterjeremiah DANGELO Unavailable Unavailabl e Chazbaran-Jahromi Piterjeremiah DANGELO Unavailable Unavailabl e Kaushikjbaran-Jahromi Piterjeremiah DANGELO Unavailable Unavailabl e Chazbaran-Jahromi Piterjeremiah DANGELO Unavailable Unavailabl e Chazbarkacey-Edsonhromi Piterjeremiah DANGELO Unavailable Unavailabl e Chazbarkacey-Edsonhromi Piterjeremiah DANGELO Unavailable Unavailabl e Chazbaran-Jahromi Piter MD Unavailable Unavailabl e Kirsten-Jahromi Piterjeremiah DANGELO Unavailable Unavailabl e Kirsten-Jahromi Piterjeremiah DANGELO Unavailable Unavailabl e Kirsten-JahromiPiter MD Unavailable Unavailabl e Chazbarkacey-Jahromi Piterjeremiah DANGELO Unavailable Unavailabl e Kirsten-JahromiPiter MD Unavailable Unavailabl e Kirsten-JahromiPiter MD Unavailable Unavailabl e Chazbaran-Jahromi Piterjeremiah DANGELO Unavailable Unavailabl e Ranlacibaran-Jahromi Piterjeremiah DANGELO Unavailable Unavailabl e Chazbaran-Jahromi Piterjeremiah DANGELO Unavailable Unavailabl e Kirsten-Jahromi Piterjeremiah DANGELO Unavailable Unavailabl e Kirsten-Jahromi Piterjeremiah DANGELO Unavailable Unavailabl e Chazbaran-Jahromi Piterjeremiah DANGELO Unavailable Unavailabl e Janetan-Jahromi Piterjeremiah DANGELO Unavailable Unavailabl e Kirsten-Jahromi Piterjeremiah DANGELO Unavailable Unavailabl e Ranjbaran-Jahromi, Piter MD Unavailable Unavailabl e Ranjbaran-Jahromi, Piter MD Unavailable Unavailabl e Chazbaran-Jahromi, Piter MD Unavailable Unavailabl e Ranjbaran-Jahromi, Piter MD Unavailable Unavailabl e Ranlacibaran-Jahromi, Piter MD Unavailable Unavailabl e Chazbaran-Jahromi Piter MD Unavailable Unavailabl e Chazbaran-Jahromi Piter MD Unavailable Unavailabl e Ranjbaran-Jahromi Piter MD Unavailable Unavailabl e Ranjbaran-Jahromi, Piter MD Unavailable Unavailabl e Kaushikjbaran-Jahromi, Piter MD Unavailable Unavailabl e Chazbaran-Jahromi Piter MD Unavailable Unavailabl e Chazbaran-Jahromi Piter MD Unavailable Unavailabl e Chazbaran-Jahromi Piter MD Unavailable Unavailabl e Chazbaran-Jahromi Piter MD Unavailable Unavailabl e Chazbaran-Jahromi Piter MD Unavailable Unavailabl e Chazbaran-Jahromi Piter MD Unavailable Unavailabl e Kirsten-Jahromi Piter MD Unavailable Unavailabl e Kirsten-Edsonhromi Piter MD Unavailable Unavailabl e Kirsten-Jahromi Piter MD Unavailable Unavailabl e Kirsten-Jahromi Piter MD Unavailable Unavailabl e Kirsten-Jahromi Piterjeremiah DANGELO Unavailable Unavailabl e Kirsten-Jahromi Piter MD Unavailable Unavailabl e Chazbaran-Jahromi Piter MD Unavailable Unavailabl e Chazbaran-Jahromi Piter MD Unavailable Unavailabl e Janetan-Jahromi Piter Unavailable Unavailabl e Kirsten-Edsonhromi Piter MD Unavailable Unavailabl e Janetan-Jahromi Piter MD Unavailable Unavailabl e Chazbaran-Jahromi Piter Unavailable Unavailabl e Kirsten-Edsonhromi Piterjeremiah DANGELO Unavailable Unavailabl e Kirsten-Jesseomi, Piter MD Unavailable Unavailabl e Ranjbaran-Jahromi, Piter MD Unavailable Unavailabl e Ranlacibaran-Jahromi, Piter MD Unavailable Unavailabl e Ranlacibaran-Jahromi Piter MD Unavailable Unavailabl e Ranjbaran-Jahromi Piter MD Unavailable Unavailabl e Ranjbaran-Jahromi, Piter MD Unavailable Unavailabl e Ranjbaran-Jahromi, Piter MD Unavailable Unavailabl e Ranjbaran-Jahromi Piter MD Unavailable Unavailabl e Ranjbaran-Jahromi Piter Unavailable Unavailabl e Chazbaran-Jahromi Piter Unavailable Unavailabl e Chazbaran-Jahromi Piter Unavailable Unavailabl e Ranjbaran-Jahromi Piter MD Unavailable Unavailabl e Ranjbaran-Jahromi Piter MD Unavailable Unavailabl e Chazbaran-Jahromi Piter Unavailable Unavailabl e Chazbaran-Jahromi Piter MD Unavailable Unavailabl e Ranlacibaran-Jahromi Piter MD Unavailable Unavailabl e Janetan-Jahromi Piter Unavailable Unavailabl e Kirsten-Jahromi Piterjeremiah DANGELO Unavailable Unavailabl e Chazbaran-Jahromi Piter MD Unavailable Unavailabl e Chazbaran-Jahromi Piterjeremiah DANGELO Unavailable Unavailabl e Kirsten-Edsonhromi Piterjeremiah DANGELO Unavailable Unavailabl e Kirsten-Jahromi Piterjeremiah DANGELO Unavailable Unavailabl e Ranlacibaran-Jahromi Piter Unavailable Unavailabl e Ranlacibaran-Jahromi Piter Unavailable Unavailabl e Janetan-Jahromi Piter Unavailable Unavailabl e Kirsten-Jahromi Piterjeremiah DANGELO Unavailable Unavailabl e Chazbaran-Jahromi Piter Unavailable Unavailabl e Chazbaran-Jahromi Piter Unavailable Unavailabl e Kirsten-Jahromi Piterjeremiah DANGELO Unavailable Unavailabl e Kirsten-Edsonhromi Piterjeremiah DANGELO Unavailable Unavailabl e Oanh, N Jassi MD Unavailable Unavailable Oanh, N Jassi MD Unavailable Unavailable Oanh, N Jassi MD Unavailable Unavailable Oanh, N Jassi MD Unavailable Unavailable Oanh, N Jassi MD Unavailable Unavailable Oanh, N Jassi MD Unavailable Unavailable Oanh, N Jassi MD Unavailable Unavailable Oanh, N Jassi MD Unavailable Unavailable Oanh, N Jassi MD Unavailable Unavailable Oanh, N Jassi MD Unavailable Unavailable Oanh, N Jassi MD Unavailable Unavailable Oanh, N Jassi MD Unavailable Unavailable Oanh, N Jassi MD Unavailable Unavailable Oanh, N Jassi MD Unavailable Unavailable Oanh, N Jassi MD Unavailable Unavailable Oanh, N Jassi MD Unavailable Unavailable Oanh, N Jassi MD Unavailable Unavailable Oanh, N Jassi MD Unavailable Unavailable Oanh, N Jassi MD Unavailable Unavailable Oanh, N Jassi MD Unavailable Unavailable Oanh, N Jassi MD Unavailable Unavailable Oanh, N Jassi MD Unavailable Unavailable Oanh, N Jassi MD Unavailable Unavailable Oanh, N Jassi MD Unavailable Unavailable Oanh, N Jassi MD Unavailable Unavailable Oanh, N Jassi MD Unavailable Unavailable Oanh, N Jassi MD Unavailable Unavailable Oanh, N Jassi MD Unavailable Unavailable Oanh, N Jassi MD Unavailable Unavailable Oanh, N Jassi MD Unavailable Unavailable Oanh, N Jassi MD Unavailable Unavailable Oanh, N Jassi MD Unavailable Unavailable Oanh, N Jassi MD Unavailable Unavailable Oanh, N Jassi MD Unavailable Unavailable Oanh, N Jassi MD Unavailable Unavailable Oanh, N Jassi MD Unavailable Unavailable Oanh, N Jassi MD Unavailable Unavailable Oanh, N Jassi MD Unavailable Unavailable Oanh, N Jassi MD Unavailable Unavailable Oanh, N Jassi MD Unavailable Unavailable Oanh, N Jassi MD Unavailable Unavailable Oanh, N Jassi MD Unavailable Unavailable Oanh, N Jassi MD Unavailable Unavailable Oanh, N Jassi MD Unavailable Unavailable Oanh, N Jassi MD Unavailable Unavailable Oanh, N Jassi MD Unavailable Unavailable Oanh, N Jassi MD Unavailable Unavailable Oanh, N Jassi MD Unavailable Unavailable Oanh, N Jassi MD Unavailable Unavailable Oanh, N Jassi MD Unavailable Unavailable Oanh, N Jassi MD Unavailable Unavailable Oanh, N Jassi MD Unavailable Unavailable Oanh, N Jassi MD Unavailable Unavailable Oanh, N Jassi MD Unavailable Unavailable Oanh, N Jassi MD Unavailable Unavailable Oanh, N Jassi MD Unavailable Unavailable Oanh, N Jassi MD Unavailable Unavailable Lance Hugo MD Unavailable Unavailable Lance Hugo MD Unavailable Unavailable Lance Hugo MD Unavailable Unavailable Lance Hugo MD Unavailable Unavailable Lance Hugo MD Unavailable Unavailable Lance Hugo MD Unavailable Unavailable Lance Hugo MD Unavailable Unavailable Lance Hugo MD Unavailable Unavailable Lance Hugo MD Unavailable Unavailable Lance Hugo MD Unavailable Unavailable Lance Hugo MD Unavailable Unavailable Lance Hugo MD Unavailable Unavailable Lance Hugo MD Unavailable Unavailable Lance Hugo MD Unavailable Unavailable Lance Hugo MD Unavailable Unavailable Lance Hugo MD Unavailable Unavailable Lance Hugo MD Unavailable Unavailable Lance Hugo MD Unavailable Unavailable Lance Hugo MD Unavailable Unavailable Lance Hugo MD Unavailable Unavailable Lance Hugo MD Unavailable Unavailable Lance Hugo MD Unavailable Unavailable Lance Hugo MD Unavailable Unavailable Dorsey, Alda ADJUNCT PHYSICS INSTRUCTOR Unavailable Unavailable Dorsey, Alda ADJUNCT PHYSICS INSTRUCTOR Unavailable Unavailable Dorsey, Alda ADJUNCT PHYSICS INSTRUCTOR Unavailable Unavailable Dorsey, Alda ADJUNCT PHYSICS INSTRUCTOR Unavailable Unavailable Dorsey, Alda ADJUNCT PHYSICS INSTRUCTOR Unavailable Unavailable Dorsey, Alda ADJUNCT PHYSICS INSTRUCTOR Unavailable Unavailable Odrsey, Alda ADJUNCT PHYSICS INSTRUCTOR Unavailable Unavailable Dorsey, Alda ADJUNCT PHYSICS INSTRUCTOR Unavailable Unavailable Dorsey, Alda ADJUNCT PHYSICS INSTRUCTOR Unavailable Unavailable Dorsey, Alda ADJUNCT PHYSICS INSTRUCTOR Unavailable Unavailable Dorsey, Alda ADJUNCT PHYSICS INSTRUCTOR Unavailable Unavailable Kristofer Feliciano MD Unavailable Unavailable Kristofer Feliciano MD Unavailable Unavailable Kristofer Feliciano MD Unavailable Unavailable Kristofer Feliciano MD Unavailable Unavailable Kristofer Feliciano MD Unavailable Unavailable Kristofer Feliciano MD Unavailable Unavailable Kristofer Feliciano MD Unavailable Unavailable Kristofer Feliciano MD Unavailable Unavailable Kristofer Feliciano MD Unavailable Unavailable Kristofer Feliciano MD Unavailable Unavailable Kristofer Feliciano MD Unavailable Unavailable Kristofer Feliciano MD Unavailable Unavailable Kristofer Feliciano MD Unavailable Unavailable Kristofer Feliciano MD Unavailable Unavailable Kristofer Feliciano MD Unavailable Unavailable Kristofer Feliciano MD Unavailable Unavailable Kristofer Feliciano MD Unavailable Unavailable Kristofer Feliciano MD Unavailable Unavailable Kristofer Feliciano MD Unavailable Unavailable Kristofer Feliciano MD Unavailable Unavailable Kristofer Feliciano MD Unavailable Unavailable Kristofer Feliciano MD Unavailable Unavailable Kristofer Feliciano MD Unavailable Unavailable Kristofer Feliciano MD Unavailable Unavailable Kristofer Feliciano MD Unavailable Unavailable Kristofer Feliciano MD Unavailable Unavailable Kristofer Feliciano MD Unavailable Unavailable Kristofer Feliciano MD Unavailable Unavailable Kristofer Feliciano MD Unavailable Unavailable Kristofer Feliciano MD Unavailable Unavailable FelicianoKristofer MD Unavailable Unavailable FelicianoKristofer MD Unavailable Unavailable Kristofer Feliciano MD Unavailable Unavailable Kristofer Feliciano MD Unavailable Unavailable Kristofer Feliciano MD Unavailable Unavailable Kristofer Feliciano MD Unavailable Unavailable Kristofer Feliciano MD Unavailable Unavailable Kristofer Feliciano MD Unavailable Unavailable Kristofer Feliciano MD Unavailable Unavailable Kristofer Feliciano MD Unavailable Unavailable Kristofer Feliciano MD Unavailable Unavailable Kristofer Feliciano MD Unavailable Unavailable Kristofer Feliciano MD Unavailable Unavailable Kristofer Feliciano MD Unavailable Unavailable Kristofer Feliciano MD Unavailable Unavailable Kristofer Feliciano MD Unavailable Unavailable Kristofer Feliciano MD Unavailable Unavailable Kristofer Feliciano MD Unavailable Unavailable Kristofer Feliciano MD Unavailable Unavailable Kristofer Feliciano MD Unavailable Unavailable Kristofer Feliciano MD Unavailable Unavailable MICHAEL DIAMOND MD Unavailable Unavailable MICHAEL DIAMOND MD Unavailable Unavailable MICHAEL DIAMOND MD Unavailable Unavailable LOBOMICHAEL BEAULIEU MD Unavailable Unavailable MICHAEL DIAMOND MD Unavailable Unavailable LOBOMICHAEL BEAULIEU MD Unavailable Unavailable MICHAEL DIAMOND MD Unavailable Unavailable MICHAEL DIAMOND MD Unavailable Unavailable LOBOMICHAEL BEAULIEU MD Unavailable Unavailable MICHAEL DIAMOND MD Unavailable Unavailable MICHAEL DIAMOND MD Unavailable Unavailable MICHAEL DIAMOND MD Unavailable Unavailable MICHAEL DIAMOND MD Unavailable Unavailable MICHAEL DIAMOND MD Unavailable Unavailable MICHAEL DIAMOND MD Unavailable Unavailable MICHAEL DIAMOND MD Unavailable Unavailable MICHAEL DIAMOND MD Unavailable Unavailable MICHAEL DIAMOND MD Unavailable Unavailable MICHAEL DIAMOND MD Unavailable Unavailable MICHAEL DIAMOND MD Unavailable Unavailable MICHAEL DIAMOND MD Unavailable Unavailable MICHAEL DIAMOND MD Unavailable Unavailable MICHAEL DIAMOND MD Unavailable Unavailable MICHAEL DIAMOND MD Unavailable Unavailable MICHAEL DIAMOND MD Unavailable Unavailable LOBOMICHAEL BEAULIEU MD Unavailable Unavailable LOBO, MELYNNE SLY MD Unavailable Unavailable LOBO, MELYNNE SLY MD Unavailable Unavailable LOBO, MELYNNE SLY MD Unavailable Unavailable LOBO, MELYNNE SLY MD Unavailable Unavailable LOBO, MELYNNE SLY MD Unavailable Unavailable LOBO, MELYNNE SLY MD Unavailable Unavailable LOBO, MELYNNE SLY MD Unavailable Unavailable LOBO, MELYNNE SLY MD Unavailable Unavailable LOBO, MELYNNE SYL MD Unavailable Unavailable LOBO, MELYNNE SLY MD Unavailable Unavailable LOBO, MELYNNE SLY MD Unavailable Unavailable LOBO, MELYNNE SLY MD Unavailable Unavailable Re-disclosure Warning The records that you are about to access may contain information from federally-assisted alcohol or drug abuse programs. If such information is present, then the following federally mandated warning applies: This information has been disclosed to you from records protected by federal confidentiality rules (42 CFR part 2). The federal rules prohibit you from making any further disclosure of this information unless further disclosure is expressly permitted by the written consent of the person to whom it pertains or as otherwise permitted by 42 CFR part 2. A general authorization for the release of medical or other information is NOT sufficient for this purpose. The Federal rules restrict any use of the information to criminally investigate or prosecute any alcohol or drug abuse patient.The records that you are about to access may contain highly sensitive health information, the redisclosure of which is protected by Article 27-F of the [facility] Public Health law. If you continue you may have access to information: Regarding HIV / AIDS; Provided by facilities licensed or operated by the [facility] Office of Mental Health; or Provided by the [facility] Office for People With Developmental Disabilities. If such information is present, then the following [facility] mandated warning applies: This information has been disclosed to you from confidential records which are protected by state law. State law prohibits you from making any further disclosure of this information without the specific written consent of the person to whom it pertains, or as otherwise permitted by law. Any unauthorized further disclosure in violation of state law may result in a fine or chcf sentence or both. A general authorization for the release of medical or other information is NOT sufficient authorization for further disc losure. Family History Family Member Name Family Member Gender Family Member Status Date o f Status Description Data Source(s) Unknown Male Problem [facility] ([facility] Unknown Unknown Problem [facility] ([facility] Unknown Unknown Problem [facility] ([facility] Unknown Female Problem 04/09/2016 12:00:00 AM EDT [facility] ([facility]) Encounters Encounter Providers Location Date Indications Data Source(s ) Office Visit Attender: Yuri Alfred 0 07/26/2020 07:00:00 AM EST [facility] ([facility] ) Outpatient Attender: Alda ibanez 04/29/2020 02:30:00 PM EDT [facility] ([facility] Outpatient Attender: Meng Quan/Cheikh/Nate/R willa 03/09/2020 10:00:00 AM EDT [facility] Office Visit Attender: Yuri Alfred 0 03/02/2020 09:20:00 AM EDT [facility] ([facility] ) Outpatient Attender: Yuri Alfred 0 01/17/2020 09:00:00 AM EDT [facility] ([facility] ) Outpatient Attender: Piter Shelby MD [facility] 11/25/2019 08:30:00 AM EDT [facility] ([facility] Outpatient Referrer: Shraddha Yang DO 10/08/2019 05:55:00 AM EDT [facility] Outpatient Attender: Jassi Hugo MD Main Office 09/08/2019 09:30:00 AM EDT [facility] ([facility]) Outpatient Attender: Yuri Alfred 0 07/27/2019 01:30:00 PM EST [facility] ([facility] ) Outpatient Attender: SLY Quan/Cheikh/Nate/R eindl 07/15/2019 01:30:00 PM EST [facility] ([facility] Medications Medication Brand Name Start Date Product Form Dose Route Admi nistrative Instructions Pharmacy Instructions Status Indications Reaction Description Data Source(s) 115-21 mcg/actuation 08/07/2020 12:00:00 AM EST HFA aerosol inhaler 12 INHALE TWO PUFFS BY MOUTH TWICE A DAY INHALE TWO PUFFS BY MOUTH TWICE A DAY SOLD: 08/09/2020 [facility] 80 mg 07/29/2020 12:00:00 AM EST tablet 90 TAKE ONE TABLET BY MOUTH EVERY DAY TAKE ONE TABLET BY MOUTH EVERY DAY SOLD: 08/07/2020 [facility] atorvastatin 80 MG Oral Tablet Atorvastatin Calcium 07/29/2020 1 2:00:00 AM EST ORAL active [facility] ( [facility]) Alprazolam 0.5 MG Oral Tablet ALPRAZOLAM 07/27/2020 12:00:00 AM EST ta blet 30 TAKE ONE TABLET BY MOUTH EVERY EVENING NEEDED FOR ANXIETY MAXIMUM DAILY DOSE = 1 TAKE ONE TABLET BY MOUTH EVERY EVENING A S NEEDED FOR ANXIETY MAXIMUM DAILY DOSE = 1 SOLD: 07/28/2020 [facility] 50 mcg 06/20/2020 12:00:00 AM EST tablet 90 TAKE ONE TABLET BY MOUTH EVERY DAY TAKE ONE TABLET BY MOUTH EVERY DAY SOLD: 06/21/2020 [facility] 115-21 mcg/actuation 06/20/2020 12:00:00 AM EST HFA aerosol inhaler 12 INHALE TWO PUFFS BY MOUTH TWICE A DAY INHALE TWO PUFFS BY MOUTH TWICE A DAY SOLD: 06/21/2020 [facility] valacyclovir 1000 MG Oral Tablet Valacyclovir HCL 04/29/2020 12:00: 00 AM EDT ORAL active [facility] ([facility] 1 gram 04/29/2020 12:00:00 AM EDT tablet 4 TAKE TWO TABLETS BY MOUTH TWICE A DAY FOR 1 DAY TAKE TWO TABLETS BY MOUTH TWICE A DAY FOR 1 DAY SOLD: 2019 [facility] clopidogrel 75 MG Oral Tablet Clopidogrel Bisulfate 04/04/2020 1 2:00:00 AM EDT active [facility] ( [facility]) 115-21 mcg/actuation 04/03/2020 12:00:00 AM EDT HFA aerosol inhaler 12 INHALE TWO PUFFS BY MOUTH TWICE A DAY INHALE TWO PUFFS BY MOUTH TWICE A DAY SOLD: 04/05/2020 [facility] 50 mcg 03/23/2020 12:00:00 AM EDT tablet 90 TAKE ONE TABLET BY MOUTH EVERY DAY TAKE ONE TABLET BY MOUTH EVERY DAY SOLD: 03/24/2020 [facility] 0.5 mg (11)- 1 mg (42) 03/09/2020 12:00:00 AM EDT tablets,do se pack 53 TAKE BY MOUTH DIRECTED TAKE BY MOUTH DIRECTED SOLD: 03/10/2020 [facility] varenicline 0.5 MG Oral Tablet [Chantix] Chantix 03/09/2020 12:00: 00 AM EDT active [facility] ([facility], ) varenicline 1 MG Oral Tablet [Chantix] Chantix 03/09/2020 12:00:00 A M EDT active [facility] ([facility], ) 1 mg 03/09/2020 12:00:00 AM EDT tablet 56 TAKE BY MOUTH DIRECTED TAKE BY MOUTH DIRECTED SOLD: 03/10/2020 [facility] 17.5-3.13-1.6 gram 03/04/2020 12:00:00 AM EDT recon soln 354 DIRECTED DIRECTED SOLD: 03/05/2020 [facility] 25 mg 03/02/2020 12:00:00 AM EDT tablet extended release 24 hr 90 TAKE ONE TABLET BY MOUTH EVERY DAY TAKE ONE TABLET BY MOUTH EVERY DAY SOLD: 03/04/2020 [facility] 25 mg 03/02/2020 12:00:00 AM EDT tablet extended release 24 hr 90 TAKE ONE TABLET BY MOUTH EVERY DAY TAKE ONE TABLET BY MOUTH EVERY DAY SOLD: 05/29/2020 [facility] 500 mg 03/01/2020 12:00:00 AM EDT capsule 4 TAKE FOUR CAPSULES BY MOUTH 1 HOUR PRIOR TO DENTAL PROCEDURE TAKE FOUR CAPSULES BY MOUTH 1 HOUR PRIOR TO DENTAL PROCEDURE SOLD: 03/01/2020 [facility] Amoxicillin 500 MG Oral Tablet Amoxicillin 03/01/2020 12:00:00 AM EDT ORAL completed [facility] ([facility], ) 115-21 mcg/actuation 02/24/2020 12:00:00 AM EDT HFA aerosol inhaler 12 INHALE 2 PUFFS BY MOUTH TWO TIMES A DAY INHALE 2 PUFFS BY MOUTH TWO TIMES A DAY SOLD: 03/01/2020 [facility] 145 mg 02/14/2020 12:00:00 AM EDT tablet 90 TAKE ONE TABLET BY MOUTH EVERY DAY TAKE ONE TABLET BY MOUTH EVERY DAY SOLD: 05/19/2020 [facility] Fenofibrate 145 MG Oral Tablet FENOFIBRATE NANOCRYSTALLIZED 02/14/2020 12:00:00 AM EDT tablet 90 TAKE ONE TABLET BY MOUTH DAYSI DAY TAKE ONE TABLET BY MOUTH EVERY DAY SOLD: 02/14/2020 [facility] benzonatate 100 MG Oral Capsule BENZONATATE 01/17/2020 12:00:00 AM EDT capsule 180 TAKE ONE CAPSULE BY MOUTH EVERY 8 HOURS NEEDED TAKE ONE CAPSULE BY MOUTH EVERY 8 HOURS NEEDED SOLD: 03/24/2020 [facility] benzonatate 100 MG Oral Capsule BENZONATATE 01/17/2020 12:00:00 AM EDT capsule 180 TAKE ONE CAPSULE BY MOUTH EVERY 8 HOURS NEEDED TAKE ONE CAPSULE BY MOUTH EVERY 8 HOURS NEEDED SOLD: 01/17/2020 [facility] benzonatate 100 MG Oral Capsule BENZONATATE 01/17/2020 12:00:00 AM EDT capsule 180 TAKE ONE CAPSULE BY MOUTH EVERY 8 HOURS NEEDED TAKE ONE CAPSULE BY MOUTH EVERY 8 HOURS NEEDED SOLD: 07/22/2020 [facility] benzonatate 100 MG Oral Capsule BENZONATATE 01/17/2020 12:00:00 AM EDT capsule 180 TAKE ONE CAPSULE BY MOUTH EVERY 8 HOURS NEEDED TAKE ONE CAPSULE BY MOUTH EVERY 8 HOURS NEEDED SOLD: 05/19/2020 [facility] Alprazolam 0.5 MG Oral Tablet ALPRAZOLAM 01/17/2020 12:00:00 AM EDT ta blet 30 TAKE 1 TABLET BY MOUTH NIGHTLY NEEDED FOR ANXIETY. USE ONLY NEEDED. MAXIMUM DAILY DOSE = 1 TAKE 1 TABLET BY MOUTH NIGHTLY NEEDED FOR ANXIETY. USE ONLY NEEDED. MAXIMUM DAILY DOSE = 1 SOLD: 01/17/2020 [facility] 115-21 mcg/actuation 01/03/2020 12:00:00 AM EDT HFA aerosol inhaler 12 INHALE TWO PUFFS BY MOUTH TWICE A DAY INHALE TWO PUFFS BY MOUTH TWICE A DAY SOLD: 01/04/2020 [facility] 115-21 mcg/actuation 11/16/2019 12:00:00 AM EDT HFA aerosol inhaler 12 INHALE TWO PUFFS BY MOUTH TWICE A DAY INHALE TWO PUFFS BY MOUTH TWICE A DAY SOLD: 11/17/2019 [facility] 25 mg 10/01/2019 12:00:00 AM EDT tablet extended release 24 hr 30 TAKE ONE TABLET BY MOUTH EVERY DAY TAKE ONE TABLET BY MOUTH EVERY DAY SOLD: 11/30/2019 [facility] 25 mg 10/01/2019 12:00:00 AM EDT tablet extended release 24 hr 30 TAKE ONE TABLET BY MOUTH EVERY DAY TAKE ONE TABLET BY MOUTH EVERY DAY SOLD: 10/04/2019 [facility] 25 mg 10/01/2019 12:00:00 AM EDT tablet extended release 24 hr 30 TAKE ONE TABLET BY MOUTH EVERY DAY TAKE ONE TABLET BY MOUTH EVERY DAY SOLD: 01/04/2020 [facility] 25 mg 10/01/2019 12:00:00 AM EDT tablet extended release 24 hr 30 TAKE ONE TABLET BY MOUTH EVERY DAY TAKE ONE TABLET BY MOUTH EVERY DAY SOLD: 11/02/2019 [facility] 25 mg 10/01/2019 12:00:00 AM EDT tablet extended release 24 hr 30 TAKE ONE TABLET BY MOUTH EVERY DAY TAKE ONE TABLET BY MOUTH EVERY DAY SOLD: 01/27/2020 [facility] 75 mg 09/25/2019 12:00:00 AM EDT tablet 90 TAKE ONE TABLET BY MOUTH EVERY DAY TAKE ONE TABLET BY MOUTH EVERY DAY SOLD: 04/05/2020 [facility] 75 mg 09/25/2019 12:00:00 AM EDT tablet 90 TAKE ONE TABLET BY MOUTH EVERY DAY TAKE ONE TABLET BY MOUTH EVERY DAY SOLD: 09/27/2019 [facility] 75 mg 09/25/2019 12:00:00 AM EDT tablet 90 TAKE ONE TABLET BY MOUTH EVERY DAY TAKE ONE TABLET BY MOUTH EVERY DAY SOLD: 07/02/2020 [facility] 0.4 mg 09/21/2019 12:00:00 AM EDT tablet, sublingual 25 PLACE ONE TABLET UNDER THE TONGUE EVERY 5 MINUTES FOR UP TO 3 DOSES NEEDED FOR CHEST PAIN. IF CHEST PAIN STILL PERSISTS CONTACT [address] ONE TABLET UNDER THE TONGUE EVERY 5 MINUTES FOR UP TO 3 DOSES NEEDED FOR CHEST PAIN. IF CHEST PAIN STILL PERSISTS CONTACT 911 SOLD: 09/23/2019 [facility] 50 mcg/actuation 09/14/2019 12:00:00 AM EDT spray,suspension 16 SPRAY 2 SPRAYS IN EACH NOSTRIL AT BEDTIME NEEDED SPRAY 2 SPRAYS IN EACH NOSTRIL AT BEDTIME NEEDED SOLD: 09/16/2019 [facility] 50 mcg/actuation 09/14/2019 12:00:00 AM EDT spray,suspension 16 SPRAY 2 SPRAYS IN EACH NOSTRIL AT BEDTIME NEEDED SPRAY 2 SPRAYS IN EACH NOSTRIL AT BEDTIME NEEDED SOLD: 11/15/2019 [facility] Suprep Bowel Prep Kit Suprep Bowel Prep Kit 09/07/2019 12:00:00 AM EDT active [facility] ([facility], ) Magnesium Hydroxide 80 MG/ML Oral Suspension Milk Of Magnesi a 09/07/2019 12:00:00 AM EDT ORAL active M [facility] ([facility], ) pantoprazole 40 MG Delayed Release Oral Tablet PANTOPRAZOLE SODIUM 09/03/2019 12:00:00 AM EST tablet,delayed release (DR/EC) 90 T FADUMO ONE TABLET BY MOUTH EVERY DAY TAKE ONE TABLET BY MOUTH EVERY DAY SOLD: 03/24/2020 [facility] 40 mg 09/03/2019 12:00:00 AM EST tablet,delayed release (DR/EC) 90 TAKE ONE TABLET BY MOUTH EVERY DAY TAKE ONE TABLET BY MOUTH EVERY DAY SOLD: 09/04/2019 [facility] 40 mg 09/03/2019 12:00:00 AM EST tablet,delayed release (DR/EC) 90 TAKE ONE TABLET BY MOUTH EVERY DAY TAKE ONE TABLET BY MOUTH EVERY DAY SOLD: 12/15/2019 [facility] pantoprazole 40 MG Delayed Release Oral Tablet PANTOPRAZOLE SODIUM 09/03/2019 12:00:00 AM EST tablet,delayed release (DR/EC) 90 T FADUMO ONE TABLET BY MOUTH EVERY DAY TAKE ONE TABLET BY MOUTH EVERY DAY SOLD: 06/21/2020 [facility] atorvastatin 40 MG Oral Tablet ATORVASTATIN CALCIUM 07/28/2019 1 2:00:00 AM EST tablet 90 TAKE ONE TABLET BY MOUTH EVERY D AY TAKE ONE TABLET BY MOUTH EVERY DAY SOLD: 04/26/2020 [facility] atorvastatin 40 MG Oral Tablet ATORVASTATIN CALCIUM 07/28/2019 1 2:00:00 AM EST tablet 90 TAKE ONE TABLET BY MOUTH EVERY D AY TAKE ONE TABLET BY MOUTH EVERY DAY SOLD: 07/28/2020 [facility] 40 mg 07/28/2019 12:00:00 AM EST tablet 90 TAKE ONE TABLET BY MOUTH EVERY DAY TAKE ONE TABLET BY MOUTH EVERY DAY SOLD: 10/22/2019 [facility] 40 mg 07/28/2019 12:00:00 AM EST tablet 90 TAKE ONE TABLET BY MOUTH EVERY DAY TAKE ONE TABLET BY MOUTH EVERY DAY SOLD: 01/27/2020 [facility] 40 mg 07/28/2019 12:00:00 AM EST tablet 90 TAKE ONE TABLET BY MOUTH EVERY DAY TAKE ONE TABLET BY MOUTH EVERY DAY SOLD: 07/29/2019 [facility] atorvastatin 40 MG Oral Tablet Atorvastatin Calcium 07/27/2019 1 2:00:00 AM EST ORAL active [facility] ( [facility]) benzonatate 100 MG Oral Capsule BENZONATATE 07/12/2019 12:00:00 AM EST capsule 180 TAKE 1 CAPSULE BY MOUTH EVERY 8 HOURS NEEDED TAKE 1 CAPSULE BY MOUTH EVERY 8 HOURS NEEDED SOLD: 07/13/2019 [facility] benzonatate 100 MG Oral Capsule BENZONATATE 07/12/2019 12:00:00 AM EST capsule 180 TAKE 1 CAPSULE BY MOUTH EVERY 8 HOURS NEEDED TAKE 1 CAPSULE BY MOUTH EVERY 8 HOURS NEEDED SOLD: 09/11/2019 [facility] benzonatate 100 MG Oral Capsule BENZONATATE 07/12/2019 12:00:00 AM EST capsule 180 TAKE 1 CAPSULE BY MOUTH EVERY 8 HOURS NEEDED TAKE 1 CAPSULE BY MOUTH EVERY 8 HOURS NEEDED SOLD: 11/09/2019 [facility] 40 mg 06/10/2019 12:00:00 AM EST tablet,delayed release (DR/EC) 90 TAKE ONE TABLET BY MOUTH EVERY DAY TAKE ONE TABLET BY MOUTH EVERY DAY SOLD: 06/11/2019 [facility] 145 mg 02/25/2019 12:00:00 AM EDT tablet 7 TAKE 1 TABLET BY MOUTH ONCE DAILY TAKE 1 TABLET BY MOUTH ONCE DAILY SOLD: 11/25/2019 [facility] 145 mg 02/25/2019 12:00:00 AM EDT tablet 90 TAKE 1 TABLET BY MOUTH ONCE DAILY TAKE 1 TABLET BY MOUTH ONCE DAILY SOLD: 08/24/2019 [facility] Fenofibrate 145 MG Oral Tablet FENOFIBRATE NANOCRYSTALLIZED 02/25/2019 12:00:00 AM EDT tablet 83 TAKE 1 TABLET BY MOUTH ONCE DAILY TAKE 1 TABLET BY MOUTH ONCE DAILY SOLD: 11/30/2019 [facility] 50 mcg/actuation 01/28/2019 12:00:00 AM EDT spray,suspension 16 SPRAY 2 SPRAYS IN EACH NOSTRIL AT BEDTIME NEEDED SPRAY 2 SPRAYS IN EACH NOSTRIL AT BEDTIME NEEDED SOLD: 08/01/2019 [facility] 50 mcg 12/29/2018 12:00:00 AM EDT tablet 90 TAKE ONE TABLET BY MOUTH EVERY DAY TAKE ONE TABLET BY MOUTH EVERY DAY SOLD: 07/03/2019 [facility] 50 mcg 12/29/2018 12:00:00 AM EDT tablet 90 TAKE ONE TABLET BY MOUTH EVERY DAY TAKE ONE TABLET BY MOUTH EVERY DAY SOLD: 09/27/2019 [facility] 115-21 mcg/actuation 11/10/2018 12:00:00 AM EDT HFA aerosol inhaler 12 INHALE TWO PUFFS BY MOUTH TWICE A DAY INHALE TWO PUFFS BY MOUTH TWICE A DAY SOLD: 07/19/2019 [facility] 115-21 mcg/actuation 11/10/2018 12:00:00 AM EDT HFA aerosol inhaler 12 INHALE TWO PUFFS BY MOUTH TWICE A DAY INHALE TWO PUFFS BY MOUTH TWICE A DAY SOLD: 10/07/2019 [facility] 115-21 mcg/actuation 11/10/2018 12:00:00 AM EDT HFA aerosol inhaler 12 INHALE TWO PUFFS BY MOUTH TWICE A DAY INHALE TWO PUFFS BY MOUTH TWICE A DAY SOLD: 08/29/2019 [facility] 25 mg 09/26/2018 12:00:00 AM EDT tablet 180 TAKE ONE TABLET BY MOUTH TWICE A DAY TAKE ONE TABLET BY MOUTH TWICE A DAY SOLD: 07/05/2019 [facility] 75 mg 09/26/2018 12:00:00 AM EDT tablet 90 TAKE ONE TABLET BY MOUTH EVERY DAY TAKE ONE TABLET BY MOUTH EVERY DAY SOLD: 07/03/2019 [facility] Insurance Providers Payer name Policy type / Coverage type Policy ID Covered alliance party ID Covered alliance party's relationship to armenta Policy Armenta Plan Information BS [place] P[place] 302/[phone] [id number] [facility] B [id number] P VYS [id number] [facility] Trad/ Commercial [id number] Family Dependen t [id number] MEDICARE [id number] Dana [id number] [facility] [id number] Spo VYS [id number] [facility] Commercial [id number] Family Dependent [id number] MEDICARE PI PI [facility] PI PI [facility] Medigap Part B [id number] Family Dependent [id number] [employer] Health Maintenance Organization (HMO) [id number] Family Dependent [id number] Medicare Medigap Part B [id number] Self [id number] [employer] Commercial [id number] Family Dependent [id number] [employer] Commercial [id number] Family Dependent [id number] [employer] Medigap Part B [id number] Family Dependent [id number] [employer] Health Maintenance Organization (HMO) [id number] Family Dependent [id number] [employer] Medigap Part B [id number] Family Dependent [id number] [employer] Maintenance [employer] (HMO) [id number] Family Dependent [id number] [employer] Medigap Part B [id number] Family Dependent [id number] [employer] Maintenance [employer] (HMO) [id number] Family Dependent [id number] [employer] Medigap Part B [id number] Family Dependent [id number] [employer] Health Maintenance Organization (HMO) [id number] Family Dependent [id number] [employer] Medigap Part B [id number] Family Dependent [id number] [employer] Health Maintenance Organization (HMO) [id number] Family Dependent [id number] [employer] Medigap Part B [id number] Family Dependent [id number] [employer] Health Maintenance Organization (HMO) [id number] Family Dependent [id number] [place] Trad/MX Commercial 802 Family Dependent 802 MEDICARE C [id number] P [id number] A [employer] Medigap Part B Family Dependent [employer] Health Maintenance Organization (HMO) Family Dependent BCBS [place] P[place] 302/307 [id number] WI2 [id number] [employer] [place] 306/806 [id number] SP [id number] SELF PAY UNAVAILABLE SP UNAVAILA BLE BLUE CROSS BLUE SHIELD-CLINIC [id number] 01 [id number] BLUE CROSS BLUE SHIELD-O/P [id number] 18 [id number] Problems, Conditions, and Diagnoses Code Display Name Description Problem Type Effective Dates Data Source(s) [id number] Dietary management surveillance Dietary manageme nt surveillance Problem 11/25/2019 12:00:00 AM EDT [facility] ([facility]) [id number] Essential hypertension Essential hypertension Problem 09/07/2019 12:00:00 AM EDT [facility] ([facility]) Surgeries/Procedures Procedure Description Date Indications Data Source(s) Spirometry 03/09/2020 12:00:00 AM EDT M [facility] ([facility]) Colonoscopy 03/07/2020 12:00:00 AM EDT M [facility] ([facility]) Colonoscopy W/ Poly 03/07/2020 12:00:00 AM EDT [facility] ([facility]) DUPLEX SCAN EXTRACRANIAL ART COMPL BI STUDY 09/08/2019 12:00:00 AM EDT [facility] ([facility]) DUP-SCAN LXTR ART/ARTL BPGS UNI/LMTD STUDY 09/08/2019 12:00:00 AM EDT [facility] ([facility]) Spirometry 07/15/2019 12:00:00 AM EST M [facility] ([facility]) Results ID Date Data Source [id number] 07/26/2020 08:23:00 AM EST [facility] ([facility]) Name Value Range Interpretation Code Description Data Martina rce(s) Supporting Document(s) Thyrotropin [Units/volume] in Serum or Plasma by Detec tion limit <= 0.05 mIU/L 2.26 uIU/mL 0.36-3.74 [facility] ) ID Date Data Source [id number] 07/26/2020 08:23:00 AM EST [facility] ([facility] Name Value Range Interpretation Code Description Data Martina rce(s) Supporting Document(s) Cholesterol [Mass/volume] in Serum or Plasma 171 mg/dL 131-200 [facility] ([facility]) Triglyceride [Mass/volume] in Serum or Plasma 142 mg/dL 30-150 [facility] ([facility]) Cholesterol in HDL [Mass/volume] in Serum or Plasma 45 mg/dL 35-60 [facility] ([facility]) Cholesterol in LDL [Mass/volume] in Serum or Plasma by calcu lation 98 CALC 50-159 [facility] ([facility]) ID Date Data Source [id number] 07/26/2020 08:23:00 AM EST [facility] ([facility]) Name Value Range Interpretation Code Description Data Martina rce(s) Supporting Document(s) Glucose [Mass/volume] in Serum or Plasma 122 mg/dL 74-99 [facility] ([facility]) 100-125 mg/dL PRE-DIABETES/FASTING >126 mg/dL DIABETES/FASTING Urea nitrogen [Mass/volume] in Serum or Plasma 10 mg/dL 7-18 [facility] ([facility]) Sodium [Moles/volume] in Serum or Plasma 138 meq/L 136-145 [facility] ([facility]) Creatinine 1.1 mg/dL 0.6-1.3 [facility] Potassium [Moles/volume] in Serum or Plasma 4.9 meq/L 3.5-5.1 [facility] ([facility]) Chloride [Moles/volume] in Serum or Plasma 100 meq/L 98-107 [facility] ([facility]) Calcium [Mass/volume] in Serum or Plasma 9.5 mg/dL 8.5-10.1 [facility] ([facility]) Alkaline phosphatase isoenzyme [Units/volume] in Serum or Pl asma 84 mg/dL 46-116 [facility] ([facility]) Carbon dioxide, total [Moles/volume] in Serum or Plasma 30 meq/L 21 -32 [facility] ([facility]) Aspartate aminotransferase [Enzymatic activity/volume] in Serum or Plasma 38 U/L 15-37 [facility] ([facility] ) Total Bilirubin 0.4 mg/dL 0.2-1.0 [facility] ([facility]) Alanine aminotransferase [Enzymatic activity/volume] in Seru m or Plasma 47 U/L 12-78 [facility] ([facility]) Glomerular filtration rate/1.73 sq M pre dicted among non-blacks [Volume Rate/Area] in Serum or Plasma by Creatinine-based formula (MDRD) Laboratory test result [facility] ([facility] ) Albumin [Mass/volume] in Serum or Plasma 4.2 g/dL 3.4-5.0 [facility] ([facility]) Proteinase 3 Ab [Units/volume] in Serum 7.4 g/dL 6.4-8.2 [facility] ([facility]) A/G Ratio 1.31 CALC 1.00-1.90 [facility] ([facility]) Glomerular filtration rate/1.73 sq M pre dicted among blacks [Volume Rate/Area] in Serum or Plasma by Creatinine-based formula (MDRD) Laboratory test result [facility] ([facility]) <content>CHRONIC KIDNEY DISEASE STAGING PER NKF</content>
<content></content>
<content>STAGE I & II GFR >= 60 NORMAL TO MILDLY DECREASED</content>
<content>STAGE III GFR 30-59 MODERATELY DECREASED</content>
<content>STAGE IV GFR 15-29 SEVERELY DECREASED</content>
<content>STAGE V GFR <15 VERY LITTLE GFR LEFT</content>
<content>ESRD GFR <15 ON [employer]</content>
<content></content> ID Date Data Source [id number] 07/26/2020 08:23:00 AM EST [facility] ([facility]) Name Value Range Interpretation Code Description Data Martina rce(s) Supporting Document(s) Prostate specific Ag [Mass/volume] in Serum or Plasma 0.52 ng/mL [facility] ([facility]) This assay was performed on the Siemens Dimension EXL using the B- Galactosidase/CPRG methodology and should not be compared interchangeably with other methods. The PSA should not be used alone as a screening test for the presence or absence of malignant disease. ID Date Data Source [id number] 07/26/2020 08:23:00 AM EST [facility]) Name Value Range Interpretation Code Description Data Martina rce(s) Supporting Document(s) Erythrocytes [#/volume] in Blood by Automated count 4.81 x10*6/UL 4.2 0-6.30 [facility] ([facility]) Leukocytes [#/volume] in Blood by Automated count 5.9 x10*3/UL 4.1-10 .9 [facility] ([facility]) Hemoglobin [Mass/volume] in Blood 15.0 g/dL 12.0-18.0 [facility] ([facility]) MCV 89.9 fL 80.0-97.0 [facility] [facility] Hematocrit [Volume Fraction] of Blood by Automated count 43.3 % 3 7.0-51.0 [facility] ([facility]) MCH 31.1 pg 26.0-32.0 [facility] [facility] MCHC 34.6 g/dL 31.0-38.0 [facility] ([place] [facility]) Erythrocyte distribution width [Ratio] by Automated count 14.6 % 11.6-13.7 [facility] ([facility]) MPV 9.9 FL 7.8-11.0 [facility] ([place] [facility]) Platelets [#/volume] in Blood by Automated count 222 x10*3/UL 140-440 [facility] ([facility]) Lymph % 28.8 % 10.0-58.5 [facility] [facility] Neut % 65.8 % 37.0-92.0 [facility] ([place] [facility]) Lymph # 1.7 x10*3/UL 0.6-4.1 [facility] ([facility]) Mid % 5.4 % 1.7-9.3 [facility] [facility] Neut # 3.9 x10*3/UL 2.0-7.8 [facility] ([facility]) Mid # 0.3 x10*3/UL 0.1-0.6 [facility] ([facility]) ID Date Data Source [id number] 03/09/2020 10:08:00 AM EDT [facility] ([facility], ) Name Value Range Interpretation Code Description Data Martina rce(s) Supporting Document(s) PDFReport Laboratory test result [facility] ([facility], ) FVC-Pred 3.97 L [facility] ([facility], ) FVC-Pre 2.44 L [facility] ([facility]) FVC-%Pred-Pre 61 L [facility] ([facility], ) FVC-LLN 3.11 L [facility] ([facility], ) Fev1-Pred 2.92 L [facility] ([facility], ) Fev1-%Pred-Pre 48 L [facility] ([facility], ) Fev1-Pre 1.40 L [facility] ([facility], ) Fev1-LLN 2.19 L [facility] ([facility], ) Fev6-Pred 3.73 L [facility] ([facility], ) Fev6-%Pred-Pre 64 L [facility] ([facility], ) Fev6-Pre 2.41 L [facility] ([facility], ) Fev6-LLN 2.90 L [facility] ([facility]) [id number]-Zcv 57 % [facility] ([facility], ) Suw7ovg-Ckeb 74 % [facility] ([facility]) Obx4zwe-WOU 64 % [facility] ([facility]) Wxl4qpw-%Pred-Pre 77 % [facility] ([facility]) Iug6ztt-Oouh 94 % [facility] ([facility]) Gur3dfk-%Pred-Pre 104 % [facility] ([facility]) Nxi9mgr-Uhr 99 % [facility] ([facility]) FEFMax-Pre 3.39 L/E/sec [facility] ([facility], ) FEFMax-Pred 7.80 L/E/sec [facility] ([facility], ) FEFMax-LLN 5.67 L/E/sec [facility] ([facility]) FEFMax-%Pred-Pre 43 L/E/sec [facility] ([facility]) [id number] 2.25 L/E/sec [facility] ([facility]) [id number]-Ghc 0.67 L/E/sec [facility] ([facility]) Ece1117-WTN 0.78 L/E/sec [facility] ([facility]) Huu9859-%Pred-Pre 29 L/E/sec [facility] ([facility]) ExpTime-Pre 6.52 sec [facility] ([facility]) Gey3wfl6-Byve 78 % [facility] ([facility]) Vjk3kyi4-Irm 58 % [facility] ([facility]) Ijq3eex7-%Pred-Pre 74 % [facility] ([facility]) Lfu7xnl4-GNO 69 % [facility] ([facility]) ID Date Data Source [id number] 03/07/2020 09:42:00 AM EDT [facility] ([facility]) Name Value Range Interpretation Code Description Data Martina rce(s) Supporting Document(s) Surgical pathology study Laboratory test result [facility] ([facility]) FINAL DIAGNOSIS A - Colon, splenic flexure polyp, polypectomy: Tubular adenoma, fragments. Separate fragments of hyperplastic polyp. B - Colon, hepatic flexure polyp, polypectomy: Tubular adenoma, fragments. Separate fragments of hyperplastic polyp. C - Sigmoid colon polyp, polypectomy: Tubular adenoma, fragments. Separate fragments of hyperplastic polyp. 03/08/2020 - 1149 CLINICAL DIAGNOSIS Colon polyps, family history colon [...] Signed JOSÉ MIGUEL SIMMONS MD 03/08/2020 1151 ID Date Data Source [id number] 03/07/2020 09:42:00 AM EDT [facility] ([facility]) Name Value Range Interpretation Code Description Data Martina rce(s) Supporting Document(s) Surgical pathology study [facility] ) FINAL DIAGNOSIS A - Colon, splenic flexure polyp, polypectomy: Tubular adenoma, fragments. Separate fragments of hyperplastic polyp. B - Colon, hepatic flexure polyp, polypectomy: Tubular adenoma, fragments. Separate fragments of hyperplastic polyp. C - Sigmoid colon polyp, polypectomy: Tubular adenoma, fragments. Separate fragments of hyperplastic polyp. 03/08/2020 - 115 CLINICAL DIAGNOSIS Colon polyps, family history colon [...] cm. All in one. -OA 03/08/2020 - 115 Signed JOSÉ MIGUEL SIMMONS MD 03/08/2020 1151 ID Date Data Source [id number] 03/02/2020 12:00:00 PM EDT [facility] Name Value Range Interpretation Code Description Data Martina rce(s) Supporting Document(s) SARS coronavirus 2 RNA [facility] This lab was ordered by [facility] and reported by [facility]. ID Date Data Source [id number] 01/17/2020 09:10:00 AM EDT [facility] ([facility]) Name Value Range Interpretation Code Description Data Martina rce(s) Supporting Document(s) Thyrotropin [Units/volume] in Serum or Plasma by Detec tion limit <= 0.05 mIU/L 1.56 uIU/mL 0.36-3.74 [facility] ([facility] [facility] ) ID Date Data Source [id number] 01/17/2020 09:10:00 AM EDT [facility] Name Value Range Interpretation Code Description Data Martina rce(s) Supporting Document(s) Triglyceride [Mass/volume] in Serum or Plasma 185 mg/dL 30-150 [facility] ([facility] [facility]) Cholesterol in HDL [Mass/volume] in Serum or Plasma 41 mg/dL 35-60 [facility] ([facility] [facility]) Cholesterol [Mass/volume] in Serum or Plasma 148 mg/dL 131-200 [facility] ([facility] [facility]) Cholesterol in LDL [Mass/volume] in Serum or Plasma by calcu lation 70 CALC 50-159 [facility] ([facility]) ID Date Data Source [id number] 01/17/2020 09:10:00 AM EDT [facility] ([facility]) Name Value Range Interpretation Code Description Data Martina rce(s) Supporting Document(s) Glucose [Mass/volume] in Serum or Plasma 113 mg/dL 74-99 [facility] ([facility] [facility]) 100-125 mg/dL PRE-DIABETES/FASTING >126 mg/dL DIABETES/FASTING Sodium [Moles/volume] in Serum or Plasma 143 meq/L 136-145 [facility] ([facility] [facility]) Urea nitrogen [Mass/volume] in Serum or Plasma 12 mg/dL 7-18 [facility] ([facility] [facility]) Creatinine 1.1 mg/dL 0.6-1.3 [facility] ([facility]) Calcium [Mass/volume] in Serum or Plasma 9.4 mg/dL 8.5-10.1 [facility] ([facility] [facility]) Potassium [Moles/volume] in Serum or Plasma 4.4 meq/L 3.5-5.1 [facility] ([facility]) Carbon dioxide, total [Moles/volume] in Serum or Plasma 30 meq/L 21 -32 [facility] ([facility]) Chloride [Moles/volume] in Serum or Plasma 104 meq/L 98-107 [facility] ([facility] [facility]) Alkaline phosphatase isoenzyme [Units/volume] in Serum or Pl asma 75 mg/dL 46-116 [facility] ([facility] [facility]) Aspartate aminotransferase [Enzymatic activity/volume] in Serum or Plasma 29 U/L 15-37 [facility] ([facility] [facility] ) Total Bilirubin 0.4 mg/dL 0.2-1.0 [facility] ([facility]) Albumin [Mass/volume] in Serum or Plasma 4.0 g/dL 3.4-5.0 [facility] ([facility] [facility]) Proteinase 3 Ab [Units/volume] in Serum 7.0 g/dL 6.4-8.2 [facility] ([facility] [facility]) Alanine aminotransferase [Enzymatic activity/volume] in Seru m or Plasma 35 U/L 12-78 [facility] [facility]) A/G Ratio 1.33 CALC 1.00-1.90 [facility] [facility]) Glomerular filtration rate/1.73 sq M pre dicted among blacks [Volume Rate/Area] in Serum or Plasma by Creatinine-based formula (MDRD) Laboratory test result [facility] [facility] <content>CHRONIC KIDNEY DISEASE STAGING PER NKF</content>
<content></content>
<content>STAGE I & II GFR >= 60 NORMAL TO MILDLY DECREASED</content>
<content>STAGE III GFR 30-59 MODERATELY DECREASED</content>
<content>STAGE IV GFR 15-29 SEVERELY DECREASED</content>
<content>STAGE V GFR <15 VERY LITTLE GFR LEFT</content>
<content>ESRD GFR <15 ON [employer]</content>
<content></content> Glomerular filtration rate/1.73 sq M pre dicted among non-blacks [Volume Rate/Area] in Serum or Plasma by Creatinine-based formula (MDRD) Laboratory test result [facility] ([facility] [facility] ) ID Date Data Source [id number] 01/17/2020 09:10:00 AM EDT [facility] ([facility]) Name Value Range Interpretation Code Description Data Martina rce(s) Supporting Document(s) Hemoglobin [Mass/volume] in Blood 14.8 g/dL 12.0-18.0 [facility] ([place] [facility]) Leukocytes [#/volume] in Blood by Automated count 6.5 x10*3/UL 4.1-10 .9 [facility] ([place] [facility]) Erythrocytes [#/volume] in Blood by Automated count 4.88 x10*6/UL 4.2 0-6.30 [facility] ([place] [facility]) MCHC 33.4 g/dL 31.0-38.0 [facility] ([facility] [place]note 2]) Hematocrit [Volume Fraction] of Blood by Automated count 44.5 % 3 7.0-51.0 [facility] ([facility] [facility]) MCV 91.2 fL 80.0-97.0 [facility] ([facility] [place][note 2]) MCH 30.4 pg 26.0-32.0 [facility] ([facility] [place][note 2]) Platelets [#/volume] in Blood by Automated count 169 x10*3/UL 140-440 [facility] ([place] [facility] Erythrocyte distribution width [Ratio] by Automated count 14.0 % 11.6-13.7 [facility] ([place] [facility] MPV 9.7 FL 7.8-11.0 [facility] ([facility] [place][note 2]) Mid % 5.5 % 1.7-9.3 [facility] ([facility] [place][note 2]) Lymph % 20.3 % 10.0-58.5 [facility] ([facility] [place][note 2]) Lymph # 1.3 x10*3/UL 0.6-4.1 [facility] ([facility] [facility]) Neut % 74.2 % 37.0-92.0 [facility] ([facility] [place][note 2]) Neut # 4.8 x10*3/UL 2.0-7.8 [facility] ([facility] [facility]) Mid # 0.4 x10*3/UL 0.1-0.6 [facility] ([facility] [facility]) ID Date Data Source [id number] 09/20/2019 02:16:00 PM EDT [facility] ([facility]) Name Value Range Interpretation Code Description Data Martina rce(s) Supporting Document(s) Appearance, Urine Laboratory test result [facility] ([facility] [facility]) Specific [place] Urine Auto 1.023 1.002-1.035 [facility] ([place] [facility] PH,Urine 5.0 units 5.0-9.0 [facility] ([facility] [place]note 2]) Color, Urine Laboratory test result [facility] ([facility] [facility]) Ketone, Urine Auto Laboratory test result [facility] ([facility] [facility]) Glucose, Urine (Ua) Auto Laboratory test result [facility] ([facility] [facility]) Protein, Urine Auto Laboratory test result [facility] ([place] [facility]) Bilirubin, Urine Auto Laboratory test result [facility] ([place] [facility]) Urobilinogen, Urine Auto 0.2 mg/dL 0.0-2.0 [facility] ([place] [facility]) Nitrite, Urine Auto Laboratory test result [facility] ([place] [facility]) Blood, Urine Blood Laboratory test result [facility] ([place] [facility]) Leukocyte Esterase, Urine Auto Laboratory test result [facility] ([place] [facility]) WBC, Urine Auto 7 /HPF 0-3 [facility] ([facility]) Bacteria, Urine Auto Laboratory test result [facility] ([place] [facility]) RBC, Urine Auto 2 /HPF 0-3 [facility] ([facility]) Squamous Epithelial Cell Ur AU 1 /HPF 0-6 [facility] ([place] [facility] Hyaline Cast, Urine Auto 13 /LPF 0-1 [facility] ([place] [facility]) Mucus, Urine Laboratory test result [facility] ([place] [facility]) ID Date Data Source [id number] 09/20/2019 01:30:00 PM EDT [facility] ([facility]) Name Value Range Interpretation Code Description Data Martina rce(s) Supporting Document(s) Lipoprotein lipase [Enzymatic activity/volume] in Serum or P lasma 169 U/L 73-393 [facility]) ID Date Data Source [id number] 09/20/2019 01:30:00 PM EDT [facility] ([facility]) Name Value Range Interpretation Code Description Data Martina rce(s) Supporting Document(s) Blood Urea Nitrogen 13 mg/dL 7-18 [facility] ([facility]) Glucose, Fasting 134 mg/dL 70-100 [facility] ([facility] Creatinine For GFR 1.43 mg/dL 0.70-1.30 [facility] ([facility] Sodium Level 137 meq/L 136-145 [facility] ([facility] [facility]) Glomerular Filtration Rate 52.4 [facility] ([place] [facility]) <content>Units are mL/min/1.73 m2</content>
<content></content>
<content>Chronic Kidney Disease Staging per NKF:</content>
<content></content>
<content>Stage I & II GFR >=60 Normal to Mildly Decreased</content>
<content>Stage III GFR 30-59 Moderately Decreased</content>
<content>Stage IV GFR 15-29 Severely Decreased</content>
<content>Stage V GFR <15 Very Little GFR Left</content>
<content>ESRD GFR <15 on [employer]</content>
<content></content> Potassium Serum 4.3 meq/L 3.5-5.1 [facility] ([facility]) Anion Gap 6 meq/L 8-16 [facility] ([facility] [place][note 2]) Carbon Dioxide Level 28 meq/L 21-32 [facility] ([facility]) Chloride Level 103 meq/L 98-107 [facility] ([facility]) Calcium Level 9.7 mg/dL 8.8-10.2 [facility] ([facility]) ID Date Data Source [id number] 09/20/2019 01:30:00 PM EDT [facility] ([facility]) Name Value Range Interpretation Code Description Data Martina rce(s) Supporting Document(s) Alt/SGPT 34 U/L 12-78 [facility] ([facility] [place]note 2]) Ast/Sgot 35 U/L 7-37 [facility] ([facility] [place]note 2]) Bilirubin,Total 0.6 mg/dL 0.2-1.0 [facility] ([facility]) Alkaline Phosphatase 77 U/L 45-117 [facility] ([facility] Total Protein 7.3 GM/DL 6.4-8.2 [facility] ([facility]) Bilirubin,Direct 0.2 mg/dL 0.0-0.2 [facility] ([facility]) Albumin 4.3 GM/DL 3.2-5.2 [facility] ([facility] [place][note 2]) Albumin/Globulin Ratio 1.43 1.00-1.93 [facility] ([facility] [facility]) ID Date Data Source [id number] 09/20/2019 01:30:00 PM EDT [facility] ([facility]) Name Value Range Interpretation Code Description Data Martina rce(s) Supporting Document(s) White Blood Count 7.7 10 4.0-10.0 [facility] ([facility]) Hemoglobin 15.3 g/dL 13.5-17.5 [facility] ([facility]) Red Blood Count 4.88 10 4.30-6.10 [facility] ([facility]) Mean Corpuscular Hemoglobin 31.4 pg 27.0-33.0 ME [facility] ([facility] [facility]) Hematocrit 47.1 % 42.0-52.0 [facility] ([facility]) Mean Corpuscular Volume 96.5 fl 80.0-96.0 [facility] ([facility] [facility]) Mean Corpuscular HGB Conc 32.5 g/dL 32.0-36.5 [facility] ([place] [facility]) Red Cell Distribution Width 14.6 % 11.5-14.5 [facility] ([place] [facility]) Platelet Count, Automated 174 10 150-450 [facility] ([place] [facility]) Lymph % 18.0 % 24.0-44.0 [facility] [facility] Neutrophils % 70.4 % 36.0-66.0 [facility] ([facility]) [place] % 9.2 % 0.0-5.0 [facility] [facility] Immature Granulocyte % 0.3 % 0-3.0 [facility] ([place] [facility]) Baso % 0.7 % 0.0-1.0 [facility] [facility]) Eos % 1.4 % 0.0-3.0 [facility] ([place] [facility]) Lymph # 1.4 10 1.5-5.0 [facility] [facility] Nucleated Red Blood Cell % 0.0 % 0-0 [facility] ([place] [facility]) Neutrophils # 5.4 10 1.5-8.5 [facility] ([facility]) Eos # 0.1 10 0.0-0.5 [facility] ([place] [facility]) Baso # 0.1 10 0.0-0.2 [facility] ([place] [facility]) [place] # 0.7 10 0.0-0.8 [facility] ([place] [facility]) ID Date Data Source [id number] 09/08/2019 08:35:00 AM EDT [facility] ([facility] Name Value Range Interpretation Code Description Data Martina rce(s) Supporting Document(s) Carotid Ultrasound Bilateral <pending> M [facility] ([facility]) Arterial Ultrasound Lower Extremity Left <pending> [facility] ([facility]) ID Date Data Source [id number] 08/03/2019 07:55:00 AM EST [facility] ([facility]) Name Value Range Interpretation Code Description Data Martina rce(s) Supporting Document(s) Thyrotropin [Units/volume] in Serum or Plasma by Detec tion limit <= 0.05 mIU/L 2.67 uIU/mL 0.36-3.74 [facility] ([place] [facility] ) ID Date Data Source [id number] 08/03/2019 07:55:00 AM EST [facility] ([facility]) Name Value Range Interpretation Code Description Data Martina rce(s) Supporting Document(s) Cholesterol [Mass/volume] in Serum or Plasma 161 mg/dL 131-200 [facility] ([place] [facility]) Cholesterol in LDL [Mass/volume] in Serum or Plasma by calcu lation 81 CALC 50-159 [facility] ([place] [facility]) Triglyceride [Mass/volume] in Serum or Plasma 150 mg/dL 30-150 [facility] ([place] [facility]) Cholesterol in HDL [Mass/volume] in Serum or Plasma 50 mg/dL 35-60 [facility] ([place] [facility]) ID Date Data Source [id number] 08/03/2019 07:55:00 AM EST [facility] ([facility]) Name Value Range Interpretation Code Description Data Martina rce(s) Supporting Document(s) Glucose [Mass/volume] in Serum or Plasma 117 mg/dL 74-99 [facility] ([place] [facility]) 100-125 mg/dL PRE-DIABETES/FASTING >126 mg/dL DIABETES/FASTING Urea nitrogen [Mass/volume] in Serum or Plasma 9 mg/dL 7-18 [facility] ([place] [facility]) Creatinine 1.1 mg/dL 0.6-1.3 [facility] ([facility]) Sodium [Moles/volume] in Serum or Plasma 141 meq/L 136-145 [facility] ([place] [facility]) Potassium [Moles/volume] in Serum or Plasma 4.6 meq/L 3.5-5.1 [facility] ([place] [facility]) Chloride [Moles/volume] in Serum or Plasma 103 meq/L 98-107 [facility] ([place] [facility]) Carbon dioxide, total [Moles/volume] in Serum or Plasma 28 meq/L 21 -32 [facility] ([place] [facility]) Calcium [Mass/volume] in Serum or Plasma 9.4 mg/dL 8.5-10.1 [facility] ([place] [facility]) Alkaline phosphatase isoenzyme [Units/volume] in Serum or Pl asma 72 mg/dL 46-116 [facility] ([place] [facility]) Total Bilirubin 0.5 mg/dL 0.2-1.0 [facility] ([facility]) Alanine aminotransferase [Enzymatic activity/volume] in Seru m or Plasma 51 U/L 12-78 [facility] ([place] [facility]) Aspartate aminotransferase [Enzymatic activity/volume] in Serum or Plasma 55 U/L 15-37 [facility] ([place] [facility] ) Proteinase 3 Ab [Units/volume] in Serum 7.0 g/dL 6.4-8.2 [facility] ([place] [facility]) Albumin [Mass/volume] in Serum or Plasma 4.1 g/dL 3.4-5.0 [facility] ([place] [facility]) A/G Ratio 1.41 CALC 1.00-1.90 [facility] ([place] [facility]) Glomerular filtration rate/1.73 sq M pre dicted among non-blacks [Volume Rate/Area] in Serum or Plasma by Creatinine-based formula (MDRD) Laboratory test result [facility] ([place] [facility] ) Glomerular filtration rate/1.73 sq M pre dicted among blacks [Volume Rate/Area] in Serum or Plasma by Creatinine-based formula (MDRD) Laboratory test result [facility] ([place] [facility]) <content>CHRONIC KIDNEY DISEASE STAGING PER NKF</content>
<content></content>
<content>STAGE I & II GFR >= 60 NORMAL TO MILDLY DECREASED</content>
<content>STAGE III GFR 30-59 MODERATELY DECREASED</content>
<content>STAGE IV GFR 15-29 SEVERELY DECREASED</content>
<content>STAGE V GFR <15 VERY LITTLE GFR LEFT</content>
<content>ESRD GFR <15 ON [employer]</content>
<content></content> ID Date Data Source [id number] 08/03/2019 07:55:00 AM EST [facility] ([facility]) Name Value Range Interpretation Code Description Data Martina rce(s) Supporting Document(s) Leukocytes [#/volume] in Blood by Automated count 5.8 x10*3/UL 4.1-10 .9 [facility] ([place] [facility]) Erythrocytes [#/volume] in Blood by Automated count 4.81 x10*6/UL 4.2 0-6.30 [facility] ([place] [facility] Hemoglobin [Mass/volume] in Blood 14.5 g/dL 12.0-18.0 [facility] ([place] [facility]) MCV 91.4 fL 80.0-97.0 [facility] ([facility] [place]note 2]) Hematocrit [Volume Fraction] of Blood by Automated count 44.0 % 3 7.0-51.0 [facility] ([place] [facility]) MCH 30.1 pg 26.0-32.0 [facility] ([facility] [place][note 2]) MCHC 32.9 g/dL 31.0-38.0 [facility] ([facility] [place]note 2]) Erythrocyte distribution width [Ratio] by Automated count 14.0 % 11.6-13.7 [facility] ([place] [facility] Platelets [#/volume] in Blood by Automated count 157 x10*3/UL 140-440 [facility] ([place] [facility]) MPV 10.4 FL 7.8-11.0 [facility] ([place] [facility]) Lymph % 21.9 % 10.0-58.5 [facility] ([place] [facility]) Mid % 4.8 % 1.7-9.3 [facility] ([place] [facility]) Neut % 73.3 % 37.0-92.0 [facility] ([place] [facility]) Lymph # 1.2 x10*3/UL 0.6-4.1 [facility] ([place] [facility]) Mid # 0.4 x10*3/UL 0.1-0.6 [facility] ([place] [facility]) Neut # 4.2 x10*3/UL 2.0-7.8 [facility] ([place] [facility]) Procedure Social History Code Duration Value Status Description Data Source(s ) Smoking 03/09/2020 12:00:00 AM EDT Patient is a former smoker completed Patient is a former smoker [facility] ([facility]) 09/08/2019 12:00:00 AM EDT Patient is a former smoker completed Patient is a former smoker [facility] ([facility]) Vital Signs ID Date Data Source UNK Name Value Range Interpretation Code Description Data Source(s) Heart rate 64 /min 64 /min [facility] ([facility]) Diastolic blood pressure 76 mm[Hg] 76 mm[Hg] [facility] [facility]) Systolic blood pressure 126 mm[Hg] 126 mm[Hg] M [facility] ([place] [facility]) Body mass index (BMI) [Ratio] 29.7 kg/m2 29.7 k g/m2 [facility] ([place] [facility]) Body weight 184.00 [lb_av] 184.00 [lb_av] [facility] ([place] [facility]) Body height 66 [in_i] 66 [in_i] [facility] ([facility]) 5'6" Body surface area Derived from formula 1.97 m2 1.97 m2 [facility] ([facility]) Body weight 84.823 kg 84.823 kg [facility] ([facility]) [place] body weight 148 [lb_av] 148 [facility] Body mass index (BMI) [Ratio] 29.3 kg/m2 29.3 k g/m2 [facility] ([facility]) Body weight 187.00 [lb_av] 187.00 [lb_av] [facility] ([facility]) Body height 67 [in_i] 67 [in_i] [facility] ([facility]) 5'7" Body mass index (BMI) [Ratio] 28.8 kg/m2 28.8 k g/m2 [facility] ([facility]) Body height 67 [in_i] 67 [in_i] [facility] ([facility]) 5'7" Body weight 184.00 [lb_av] 184.00 [lb_av] [facility] ([facility]) Body temperature 98.7 [degF] 98.7 [degF] [facility]) Oxygen saturation in Arterial blood by Pulse oximetry 99 % 99 % [facility] ([facility]) Respiratory rate 16 /min 16 /min [facility] ( [facility]) Heart rate 78 /min 78 /min [facility] ([facility]) Diastolic blood pressure 82 mm[Hg] 82 mm[Hg] [facility] ([facility]) Systolic blood pressure 140 mm[Hg] 140 mm[Hg] M [facility] ([facility], [facility]) Body surface area Derived from formula 1.91 m2 1.91 m2 [facility] ([facility]) Body weight 79.380 kg 79.380 kg [facility] ([facility]) [place] body weight 148 [lb_av] 148 [lb_av] [facility] ([facility]) Body mass index (BMI) [Ratio] 27.4 kg/m2 27.4 k g/m2 [facility] ([facility]) Body weight 175.00 [lb_av] 175.00 [lb_av] [facility] ([facility]) Body height 67 [in_i] 67 [in_i] [facility]) 5'7" Oxygen saturation in Arterial blood by Pulse oximetry 96 % 96 % [facility] ([facility]) Room Air Heart rate 90 /min 90 /min [facility] ([facility], ) Diastolic blood pressure 78 mm[Hg] 78 mm[Hg] [facility] ([facility], ) Systolic blood pressure 130 mm[Hg] 130 mm[Hg] [facility] ([facility], ) Body mass index (BMI) [Ratio] 28.4 kg/m2 28.4 k g/m2 [facility] ([place] [facility]) Oxygen saturation in Arterial blood by Pulse oximetry 94 % 94 % [facility] ([place] [facility]) Body weight 176.00 [lb_av] 176.00 [lb_av] [facility] ([place] [facility]) Body height 66 [in_i] 66 [in_i] [facility] ([facility]) 5'6" Heart rate 78 /min 78 /min [facility] ([facility]) Diastolic blood pressure 76 mm[Hg] 76 mm[Hg] [facility] ([place] [facility]) Systolic blood pressure 130 mm[Hg] 130 mm[Hg] [facility] ([place] [facility]) Body mass index (BMI) [Ratio] 30.0 kg/m2 30.0 k g/m2 [facility] ([place] [facility]) Oxygen saturation in Arterial blood by Pulse oximetry 97 % 97 % [facility] ([place] [facility]) Body weight 186.00 [lb_av] 186.00 [lb_av] [facility] ([place] [facility]) Body height 66 [in_i] 66 [in_i] [facility] ([facility]) 5'6" Heart rate 80 /min 80 /min [facility] ([facility]) Diastolic blood pressure 84 mm[Hg] 84 mm[Hg] [facility] ([place] [facility]) Systolic blood pressure 120 mm[Hg] 120 mm[Hg] [facility] ([place] [facility]) Body surface area 1.96 m2 1.96 m2 [facility] ([facility] Body mass index (BMI) [Ratio] 29.0 kg/m2 29.0 k g/m2 [facility] ([facility] Body height 67 [in_i] 67 [in_i] [facility] ([facility] 5'7" Body weight 185.00 [lb_av] 185.00 [lb_av] [facility] ([facility] Body mass index (BMI) [Ratio] 29.8 kg/m2 29.8 k g/m2 [facility] ([facility] Body weight 86.184 kg 86.184 kg [facility] ([facility] Body weight 190.00 [lb_av] 190.00 [lb_av] [facility] ([facility]) Body height 67 [in_i] 67 [in_i] [facility] ([facility] 5'7" Diastolic blood pressure 82 mm[Hg] 82 mm[Hg] [facility] ([facility]) Systolic blood pressure 140 mm[Hg] 140 mm[Hg] [facility] Body weight 85.730 kg 85.730 kg [facility] ([facility]) Body mass index (BMI) [Ratio] 29.6 kg/m2 29.6 k g/m2 [facility] ([facility]) Body weight 189.00 [lb_av] 189.00 [lb_av] MEDEN T ([facility]) Body height 67 [in_i] 67 [in_i] [facility] 5'7" Diastolic blood pressure 72 mm[Hg] 72 mm[Hg] [facility] ([facility]) Systolic blood pressure 102 mm[Hg] 102 mm[Hg] [facility] Body mass index (BMI) [Ratio] 30.5 kg/m2 30.5 k g/m2 MEDENT ([facility]) Body weight 189.00 [lb_av] 189.00 [lb_av] MEDEN T ([facility]) Body height 66 [in_i] 66 [in_i] MEDENT ([facility]) 5'6" Heart rate 78 /min 78 /min [facility] Diastolic blood pressure 80 mm[Hg] 80 mm[Hg] MEDENT ([facility]) Systolic blood pressure 136 mm[Hg] 136 mm[Hg] M EDENT ([facility]) Body weight 85.277 kg 85.277 kg [facility] ([facility], ) Body mass index (BMI) [Ratio] 29.4 kg/m2 29.4 k g/m2 [facility] Body weight 188.00 [lb_av] 188.00 [lb_av] [facility] Body height 67 [in_i] 67 [in_i] [facility] ([facility]) 5'7" Oxygen saturation in Arterial blood by Pulse oximetry 95 % 95 % [facility] ([facility], ) Heart rate 82 /min 82 /min [facility] ([facility], ) Diastolic blood pressure 80 mm[Hg] 80 mm[Hg] GANGA ([facility]) Systolic blood pressure 130 mm[Hg] 130 mm[Hg] Jamison ROUSSEAU ([facility], )
[2020-08-10] MEDS ORDERED: ONDANSETRON 4MG/2ML VIAL IV ONE (07:30)
[2020-08-10] MEDS ORDERED: NS 1,000 ML IV ONE (07:30)
[2020-08-10] MEDS: MORPHINE 2 MG/ML 1ML VIAL (J2270) IV PRN ×2 (07:58→08:38)
[2020-08-10 08:07] LABS: BASO % 0.4 % (0.0-1.0); EOS # 0.1 10^3/uL (0.0-0.5); EOS % 0.9 % (0.0-3.0); HEMATOCRIT 51.6 % (42.0-52.0); HEMOGLOBIN 16.4 g/dl (13.5-17.5); LYMPH # 1.1 10^3/uL (1.5-5.0); LYMPH % 11.9 % (24.0-44.0); MEAN CORPUSCULAR HEMOGLOBIN 29.9 pg (27.0-33.0); MEAN CORPUSCULAR HGB CONC 31.8 g/dl (32.0-36.5); MONO # 0.3 10^3/uL (0.0-0.8); MONO % 2.9 % (0.0-5.0); NEUTROPHILS # 7.5 10^3/uL (1.5-8.5); NEUTROPHILS % 83.6 % (36.0-66.0); PLATELET COUNT, AUTOMATED 226 10^3/uL (150-450); RED BLOOD COUNT 5.49 10^6/uL (4.30-6.10); WHITE BLOOD COUNT 8.9 10^3/uL (4.0-10.0)
--- OUTSIDE RECORDS SUMMARY | 2020-08-10 08:54 | CCD ---
Author Author [facility] Organization [facility] Address Unknown Phone Unavailable Care Team Providers Care Tooling Specialist Name Role Phone Celia, Shraddha DO Unavailable [...] Unavailable Celia, Shraddha DO Unavailable Unavailable Celia, Shrdadha DO Unavailable Unavailable Celia, Shraddha DO Unavailable Unavailable Ceila, Shraddha DO Unavailable Unavailable Celia, Shraddha DO Unavailable Unavailable Celia, Shraddha DO Unavailable Unavailable Celia, Shraddha DO Unavailable Unavailable Bergholz, F Yuri DANGELO Unavailable Unavailable Bergholz F Yuri DANGELO Unavailable Unavailable Bergholz F Yuri DANGELO Unavailable Unavailable Bergholz F Yuri DANGELO Unavailable Unavailable EusebioLaine MD Unavailable Unavailable EusebioLaine MD Unavailable Unavailable BergholzLaine MD Unavailable Unavailable Eusebio F Yuri DANGELO Unavailable Unavailable Bergholz F Yuri DANGELO Unavailable Unavailable Eusebio F Yuri DANGELO Unavailable Unavailable Eusebio, F Yuri DANGELO Unavailable Unavailable Eusebio, F Yuri DANGELO Unavailable Unavailable Bergholz, F Yuri DANGELO Unavailable Unavailable Bergholz, F Yuri DANGELO Unavailable Unavailable Eusebio, F Yuri DANGELO Unavailable Unavailable Bergholz, F Yuri DANGELO Unavailable Unavailable Eusebio, F Yuri DANGELO Unavailable Unavailable Eusebio, F Yuri DANGELO Unavailable Unavailable Eusebio, F Yuri DANGELO Unavailable Unavailable Bergholz, F Yuri DANGELO Unavailable Unavailable Eusebio F Yuri DANGELO Unavailable Unavailable Eusebio F Yuri DANGELO Unavailable Unavailable Bergholz, F Yuri DANGELO Unavailable Unavailable Bergholz, F Yuri DANGELO Unavailable Unavailable Eusebio, F Yuri DANGELO Unavailable Unavailable Bergholz, F Yuir DANGELO Unavailable Unavailable Eusebio, F Yuri DANGELO Unavailable Unavailable EusebioLaine MD Unavailable Unavailable BergholzLaine MD Unavailable Unavailable EusebioLaine MD Unavailable Unavailable EusebioLaine MD Unavailable Unavailable BergholzLaine MD Unavailable Unavailable EusebioLaine MD Unavailable Unavailable EusebioLaine MD Unavailable Unavailable BergholzLaine MD Unavailable Unavailable EusebioLaine MD Unavailable Unavailable EusebioLaine MD Unavailable Unavailable BergholzLaine MD Unavailable Unavailable EusebioLaine MD Unavailable Unavailable BergholzLaine MD Unavailable Unavailable BergholzLaine MD Unavailable Unavailable BergholzLaine MD Unavailable Unavailable EusebioLaine MD Unavailable Unavailable BergholzLaine MD Unavailable Unavailable EusebioLaine MD Unavailable Unavailable EusebioLaine MD Unavailable Unavailable EusebioLaine MD Unavailable Unavailable EusebioLaine MD Unavailable Unavailable EusebioLaine MD Unavailable Unavailable BergholzLaine MD Unavailable Unavailable EusebioLaine MD Unavailable Unavailable BergholzLaine MD Unavailable Unavailable EusebioLaine MD Unavailable Unavailable EusebioLaine MD Unavailable Unavailable EusebioLaine MD Unavailable Unavailable BergholzLaine MD Unavailable Unavailable BergholzLaine MD Unavailable Unavailable EusebioLaine MD Unavailable Unavailable BergholzLaine MD Unavailable Unavailable BergholzLaine MD Unavailable Unavailable EusebioLaine MD Unavailable Unavailable EusebioLaine MD Unavailable Unavailable BergholzLaine frazier MD Unavailable Unavailable EusebioLaine MD Unavailable Unavailable BergholzLaine MD Unavailable Unavailable BergholzLaine MD Unavailable Unavailable EusebioLaine MD Unavailable Unavailable EusebioLaine MD Unavailable Unavailable BergholzLaine MD Unavailable Unavailable BergholzLaine frazier MD Unavailable Unavailable EusebioLaine MD Unavailable Unavailable BergholzLaine MD Unavailable Unavailable BergholzLaine MD Unavailable Unavailable BergholzLaine MD Unavailable Unavailable BergholzLaine MD Unavailable Unavailable EusebioLaine MD Unavailable Unavailable BergholzLaine MD Unavailable Unavailable BergholzLaine MD Unavailable Unavailable BergholzLaine MD Unavailable Unavailable EusebioLaine MD Unavailable Unavailable EusebioLaine MD Unavailable Unavailable BergholzLaine MD Unavailable Unavailable BergholzLaine frazier MD Unavailable Unavailable Laine Kaplan MD Unavailable Unavailable Laine Kaplan MD Unavailable Unavailable BergholzLaine frazier MD Unavailable Unavailable Kirsten-Edsonhromi Piterjeremiah DANGELO [...] Unavailabl e Janetan-Jahromi Piter Unavailable Unavailabl e iKrsten-Jahromi Piterjeremiah DANGELO Unavailable Unavailabl e Chazbaran-Jahromi Piter [...] Lance Hugo MD Unavailable Unavailable Dorsey, Alda OIL HEATER INSTALLER Unavailable Unavailable Dorsey, Alda OIL HEATER INSTALLER Unavailable Unavailable Dorsey, Alda OIL HEATER INSTALLER Unavailable Unavailable Dorsey, Alda OIL HEATER INSTALLER Unavailable Unavailable Dorsey, Alda OIL HEATER INSTALLER Unavailable Unavailable Dorsey, Alda OIL HEATER INSTALLER Unavailable Unavailable Dorsey, Alda OIL HEATER INSTALLER Unavailable Unavailable Dorsey, Alda OIL HEATER INSTALLER Unavailable Unavailable Dorsey, Alda OIL HEATER INSTALLER Unavailable Unavailable Dorsey, Alda OIL HEATER INSTALLER Unavailable Unavailable Dorsey, Alda OIL HEATER INSTALLER Unavailable Unavailable Kristofer Feliciano MD Unavailable Unavailable [...] Unavailable Unavailable Kristofer Feliciano MD Unavailable Unavailable Kritsofer Feliciano MD Unavailable Unavailable Kristofer Feliciano MD [...] is protected by Article 27-F of the [facility] Public Health law. If you continue you may have access to information: Regarding HIV / AIDS; Provided by facilities licensed or operated by the [facility] Office of Mental Health; or Provided by the [facility] Office for People With Developmental Disabilities. If such information is present, then the following [facility] mandated warning applies: This information has been [...] law may result in a fine or halfway sentence or both. A general authorization for the release of medical or other information is NOT sufficient authorization for further disc losure. Family History Family Member Name Family Member Gender Family Member Status Date o f Status Description Data Source(s) Unknown Male Problem MED[facility] ([facility]) Unknown Unknown Problem [facility] ([facility]) Unknown Unknown Problem [facility] ([facility]) Unknown Female Problem 04/09/2016 12:00:00 AM EDT [facility] ([facility]) Encounters Encounter Providers Location Date Indications Data Source(s ) Office Visit Attender: Yuri Alfred 0 07/26/2020 07:00:00 AM EST [facility] ([facility] ) Outpatient Attender: Alda ibanez 04/29/2020 02:30:00 PM EDT [facility] ([facility] Outpatient Attender: Meng Quan/Cheikh/Nate/R willa 03/09/2020 10:00:00 AM EDT [facility] Office Visit Attender: Yuri Alfred 0 03/02/2020 09:20:00 AM EDT MED[facility] ([facility] ) Outpatient Attender: Yuri Alfred 0 01/17/2020 09:00:00 AM EDT [facility] ([facility] ) Outpatient Attender: Piter Shelby MD [facility] 11/25/2019 08:30:00 AM EDT MED[facility] ([facility]) Outpatient Referrer: Shraddha Yang DO 10/08/2019 05:55:00 AM EDT [facility] Outpatient Attender: Jassi Hugo MD Main Office 09/08/2019 09:30:00 AM EDT [facility] ([facility]) Outpatient Attender: Yuri Alfred 0 07/27/2019 01:30:00 PM EST MED[facility] ([facility] ) Outpatient Attender: SLY Quan/Cheikh/Nate/R eindl 07/15/2019 01:30:00 PM EST [facility] ([facility] Medications Medication Brand Name Start [...] 2:00:00 AM EST ORAL active MED[facility] ( [facility]) Alprazolam 0.5 MG Oral Tablet ALPRAZOLAM [...] 12:00: 00 AM EDT ORAL active [facility] ([facility] 1 gram 04/29/2020 12:00:00 AM EDT tablet 4 TAKE TWO TABLETS BY MOUTH TWICE A DAY FOR 1 DAY TAKE TWO TABLETS BY MOUTH TWICE A DAY FOR 1 DAY SOLD: 2019 [facility] clopidogrel 75 MG Oral Tablet Clopidogrel Bisulfate 04/04/2020 1 2:00:00 AM EDT active MED[facility] ( [facility]) 115-21 mcg/actuation 04/03/2020 12:00:00 AM EDT [...] 03/09/2020 12:00: 00 AM EDT active MED[facility] ([facility], ) varenicline 1 MG Oral Tablet [Chantix] Chantix 03/09/2020 12:00:00 A M EDT active [facility] ([facility], ) 1 mg 03/09/2020 12:00:00 AM EDT [...] 03/01/2020 12:00:00 AM EDT ORAL completed [facility] ([facility], ) 115-21 mcg/actuation 02/24/2020 12:00:00 AM EDT [...] Kit 09/07/2019 12:00:00 AM EDT active MED[facility] ([facility], ) Magnesium Hydroxide 80 MG/ML Oral Suspension Milk Of Magnesi a 09/07/2019 12:00:00 AM EDT ORAL active M EDENT ([facility], ) pantoprazole 40 MG Delayed Release [...] 2:00:00 AM EST ORAL active MED[facility] ( [facility]) benzonatate 100 MG Oral Capsule BENZONATATE [...] type / Coverage type Policy ID Covered republican ID Covered republican's relationship to armenta Policy Armenta Plan Information BS [place] P[place] 302/307 [id number] WI2 [id number] [facility] B [id number] P VYS [id number] [facility] Trad/ Commercial [id number] Family Dependen t [id number] MEDICARE [id number] Dana [id number] [facility] [id number] Spo VYS [id number] [facility] Commercial [id number] Family Dependent [id number] MEDICARE PI PI [facility] PI PI [facility] Medigap Part B [id number] Family Dependent [id number] [employer] Health Maintenance Organization (HMO) [id number] Family Dependent [id number] Medicare Medigap Part B [id number] Self [id number] [employer] [id number] Family Dependent [id number] [employer] Commercial [id number] Family Dependent [id number] [employer] Medigap Part B [id number] Family Dependent [id number] [employer] Health Maintenance Organization (HMO) [id number] Family Dependent [id number] [employer] Medigap Part B [id number] Family Dependent [id number] [employer] Health Maintenance Organization (HMO) [id number] Family Dependent [id number] [employer] Medigap Part B [id number] Family Dependent [id number] [employer] Health Maintenance Organization (HMO) [id number] Family Dependent [id number] [employer] Medigap Part B [id number] Family Dependent [id number] [employer] Health Maintenance Organization (HMO) [id number] Family Dependent [id number] [employer] Medigap Part B [id number] Family Dependent [id number] [employer] Health Maintenance Organization (HMO) [id number] Family Dependent [id number] [employer] Medigap Part B [id number] Family Dependent [id number] [employer] Health Maintenance Organization (HMO) [id number] Family Dependent [id number] [employer] Trad/MX Commercial 802 Family Dependent 802 MEDICARE C [id number] P [id number] A [employer] Medigap Part B Family Dependent [employer] Health Maintenance Organization (HMO) Family Dependent BCBS [place] PPO 302/307 [id number] WI2 [id number] [employer] OF [place] 306/806 [id number] SP [id number] SELF PAY UNAVAILABLE SP UNAVAILA BLE BLUE CROSS BLUE SHIELD-CLINIC [id number] BLUE CROSS BLUE SHIELD-O/P [id number] Problems, Conditions, and Diagnoses Code Display Name Description Problem Type Effective Dates Data Source(s) 660482652 Dietary management surveillance Dietary manageme nt surveillance Problem 11/25/2019 12:00:00 AM EDT MED[facility] ([facility]) [id number] Essential hypertension Essential hypertension Problem 09/07/2019 12:00:00 AM EDT MED[facility] ([facility]) Surgeries/Procedures Procedure Description Date Indications Data Source(s) Spirometry 03/09/2020 12:00:00 AM EDT M EDENT ([facility]) Colonoscopy 03/07/2020 12:00:00 AM EDT M EDENT ([facility]) Colonoscopy W/ Poly 03/07/2020 12:00:00 AM EDT MED[facility] ([facility]) DUPLEX SCAN EXTRACRANIAL ART COMPL BI STUDY 09/08/2019 12:00:00 AM EDT [facility] ([facility]) DUP-SCAN LXTR ART/ARTL BPGS UNI/LMTD STUDY 09/08/2019 12:00:00 AM EDT [facility] ([facility]) Spirometry 07/15/2019 12:00:00 AM EST M EDENT ([facility]) Results ID Date Data Source [id number] 08/10/2020 07:54:00 AM EST [facility] ([facility]) Name Value Range Interpretation Code Description Data Martina rce(s) Supporting Document(s) Red Blood Count 5.49 10 4.30-6.10 [facility] ([facility]) White Blood Count 8.9 10 4.0-10.0 [facility] ([facility]) Hemoglobin 16.4 g/dL 13.5-17.5 [facility] Mean Corpuscular Volume 94.0 fl 80.0-96.0 [facility] ([facility]) Hematocrit 51.6 % 42.0-52.0 [facility] Mean Corpuscular Hemoglobin 29.9 pg 27.0-33.0 [place] DENT ([facility]) Mean Corpuscular HGB Conc 31.8 g/dL 32.0-36.5 MEDE NT ([facility]) Red Cell Distribution Width 14.2 % 11.5-14.5 ME DENT ([facility]) Lymph % 11.9 % 24.0-44.0 [facility] Neutrophils % 83.6 % 36.0-66.0 MED[facility] ([facility]) Platelet Count, Automated 226 10 150-450 MEDE NT ([facility]) [place] % 2.9 % 0.0-5.0 [facility] Baso % 0.4 % 0.0-1.0 [facility] Eos % 0.9 % 0.0-3.0 [facility] Nucleated Red Blood Cell % 0.0 % 0-0 MED ENT ([facility]) Immature Granulocyte % 0.3 % 0-3.0 [facility] ([facility]) Neutrophils # 7.5 10 1.5-8.5 [facility] ([facility]) [place] # 0.3 10 0.0-0.8 [facility] Eos # 0.1 10 0.0-0.5 [facility] Lymph # 1.1 10 1.5-5.0 [facility] Baso # 0.0 10 0.0-0.2 [facility] ID Date Data Source [id number] 07/26/2020 08:23:00 AM EST MED[facility] ([facility]) Name Value Range Interpretation Code Description Data Martina rce(s) Supporting Document(s) Thyrotropin [Units/volume] in Serum or Plasma by Detec tion limit <= 0.05 mIU/L 2.26 uIU/mL 0.36-3.74 [facility] ([facility] ) ID Date Data Source [id number] 07/26/2020 08:23:00 AM EST MED[facility] ([facility]) Name Value Range Interpretation Code Description Data Martina rce(s) Supporting Document(s) Cholesterol in HDL [Mass/volume] in Serum or Plasma 45 mg/dL 35-60 [facility] ([facility]) Cholesterol [Mass/volume] in Serum or Plasma 171 mg/dL 131-200 [facility] ([facility]) Triglyceride [Mass/volume] in Serum or Plasma 142 mg/dL 30-150 [facility] ([facility]) Cholesterol in LDL [Mass/volume] in Serum or Plasma by calcu lation 98 CALC 50-159 [facility] ([facility]) ID Date Data Source [id number] 07/26/2020 08:23:00 AM EST MED[facility] ([facility]) Name Value Range Interpretation Code Description Data Martina rce(s) Supporting Document(s) Urea nitrogen [Mass/volume] in Serum or Plasma 10 mg/dL 7-18 [facility] ([facility]) Glucose [Mass/volume] in Serum or Plasma 122 mg/dL 74-99 [facility] ([facility]) 100-125 mg/dL PRE-DIABETES/FASTING >126 mg/dL DIABETES/FASTING Creatinine 1.1 mg/dL 0.6-1.3 [facility] Sodium [Moles/volume] in Serum or Plasma 138 meq/L 136-145 [facility] ([facility]) Potassium [Moles/volume] in Serum or Plasma 4.9 meq/L 3.5-5.1 [facility] ([facility]) Chloride [Moles/volume] in Serum or Plasma 100 meq/L 98-107 [facility] ([facility]) Calcium [Mass/volume] in Serum or Plasma 9.5 mg/dL 8.5-10.1 [facility] ([facility]) Alkaline phosphatase isoenzyme [Units/volume] in Serum or Pl asma 84 mg/dL 46-116 [facility] ([facility]) Carbon dioxide, total [Moles/volume] in Serum or Plasma 30 meq/L 21 -32 [facility] ([facility]) Aspartate aminotransferase [Enzymatic activity/volume] in Serum or Plasma 38 U/L 15-37 [facility] ([facility] ) Total Bilirubin 0.4 mg/dL 0.2-1.0 [facility] ([facility]) Alanine aminotransferase [Enzymatic activity/volume] in Seru m or Plasma 47 U/L 12-78 [facility] Albumin [Mass/volume] in Serum or Plasma 4.2 g/dL 3.4-5.0 [facility] Proteinase 3 Ab [Units/volume] in Serum 7.4 g/dL 6.4-8.2 [facility] A/G Ratio 1.31 CALC 1.00-1.90 [facility] Glomerular filtration rate/1.73 sq M pre dicted among non-blacks [Volume Rate/Area] in Serum or Plasma by Creatinine-based formula (MDRD) Laboratory test result [facility] ([facility] Glomerular filtration rate/1.73 sq M pre dicted among blacks [Volume Rate/Area] in Serum or Plasma by Creatinine-based formula (MDRD) Laboratory test result [facility] ([facility]) <content>CHRONIC KIDNEY DISEASE STAGING PER NKF</content>
<content></content>
<content>STAGE I & II GFR >= 60 NORMAL TO MILDLY DECREASED</content>
<content>STAGE III GFR 30-59 MODERATELY DECREASED</content>
<content>STAGE IV GFR 15-29 SEVERELY DECREASED</content>
<content>STAGE V GFR <15 VERY LITTLE GFR LEFT</content>
<content>ESRD GFR <15 ON PHYSICS TECHNICIAN</content>
<content></content> ID Date Data Source [id number] 07/26/2020 08:23:00 AM EST [facility]) Name Value Range Interpretation Code Description Data Martina rce(s) Supporting Document(s) Prostate specific Ag [Mass/volume] in Serum or Plasma 0.52 ng/mL [facility] ([facility]) This assay was performed on the Siemens Dimension EXL using the B- Galactosidase/CPRG methodology and should not be compared interchangeably with other methods. The PSA should not be used alone as a screening test for the presence or absence of malignant disease. ID Date Data Source [id number] 07/26/2020 08:23:00 AM EST [facility]) Name Value Range Interpretation Code Description Data Martina rce(s) Supporting Document(s) Leukocytes [#/volume] in Blood by Automated count 5.9 x10*3/UL 4.1-10 .9 [facility] ([facility]) Hemoglobin [Mass/volume] in Blood 15.0 g/dL 12.0-18.0 [facility] ([facility]) Erythrocytes [#/volume] in Blood by Automated count 4.81 x10*6/UL 4.2 0-6.30 [facility] ([facility]) MCH 31.1 pg 26.0-32.0 [facility] MCV 89.9 fL 80.0-97.0 [facility] Hematocrit [Volume Fraction] of Blood by Automated count 43.3 % 3 7.0-51.0 [facility] ([facility]) MCHC 34.6 g/dL 31.0-38.0 [facility] Platelets [#/volume] in Blood by Automated count 222 x10*3/UL 140-440 [facility] ([facility]) Erythrocyte distribution width [Ratio] by Automated count 14.6 % 11.6-13.7 [facility] ([facility]) MPV 9.9 FL 7.8-11.0 [facility] Mid % 5.4 % 1.7-9.3 [facility] Lymph % 28.8 % 10.0-58.5 [facility] Neut % 65.8 % 37.0-92.0 [facility] Lymph # 1.7 x10*3/UL 0.6-4.1 [facility] ([facility]) Mid # 0.3 x10*3/UL 0.1-0.6 [facility] ([facility]) Neut # 3.9 x10*3/UL 2.0-7.8 [facility] ([facility]) ID Date Data Source [id number] 03/09/2020 10:08:00 AM EDT [facility] Name Value Range Interpretation Code Description Data Martina rce(s) Supporting Document(s) PDFReport Laboratory test result MED[facility] ([facility], ) FVC-Pred 3.97 L MED[facility] ([facility]) FVC-Pre 2.44 L [facility] ([facility]) FVC-%Pred-Pre 61 L [facility] ([facility]) FVC-LLN 3.11 L [facility] ([facility]) Fev1-Pred 2.92 L [facility] ([facility]) Fev1-%Pred-Pre 48 L [facility] ([facility]) Fev1-Pre 1.40 L [facility] ([facility]) Fev1-LLN 2.19 L [facility] ([facility]) Fev6-Pred 3.73 L [facility] ([facility]) Fev6-%Pred-Pre 64 L [facility] ([facility]) Fev6-Pre 2.41 L [facility] ([facility]) Fev6-LLN 2.90 L [facility] ([facility]) Slc2wnu-Tlv 57 % [facility] ([facility]) Icv0xdr-Fsrj 74 % [facility] ([facility]) Faa8wxu-FGR 64 % [facility] ([facility]) Uwj3pzi-%Pred-Pre 77 % [facility] ([facility]) Pai0iaq-Klco 94 % [facility] ([facility]) Nga9hqq-%Pred-Pre 104 % [facility] ([facility]) Grc0qze-Vdd 99 % [facility] ([facility]) FEFMax-Pre 3.39 L/E/sec [facility] ([facility]) FEFMax-Pred 7.80 L/E/sec [facility] ([facility]) FEFMax-LLN 5.67 L/E/sec [facility] ([facility]) FEFMax-%Pred-Pre 43 L/E/sec [facility] ([facility], ) Ctp7227-Wyjb 2.25 L/E/sec [facility] ([facility]) Lrd7648-Wwp 0.67 L/E/sec [facility] ([facility]) Jcm4266-NPY 0.78 L/E/sec [facility] ([facility]) Pui4084-%Pred-Pre 29 L/E/sec [facility] ([facility]) ExpTime-Pre 6.52 sec [facility] ([facility]) Kjq1nzf2-Uidc 78 % [facility] ([facility]) Skf4lew9-Hxn 58 % [facility] ([facility]) Ntr3nex6-%Pred-Pre 74 % [facility] ([facility]) Lsu9eci7-RRL 69 % [facility] ([facility]) ID Date Data Source [id number] 03/07/2020 09:42:00 AM EDT MED[facility] ([facility]) Name Value Range Interpretation Code Description Data Martina rce(s) Supporting Document(s) Surgical pathology study Laboratory test result [facility] FINAL DIAGNOSIS A - [...] x 0.1 cm. All in one. -OA 03/08/20202019 Signed JOSÉ MIGUEL SIMMONS MD 03/08/2020 115 ID Date Data Source [id number] 03/07/2020 09:42:00 AM EDT [facility] Name Value Range Interpretation Code Description Data Martina rce(s) Supporting Document(s) Surgical pathology study Laboratory [facility] ) FINAL DIAGNOSIS A - Colon, splenic flexure polyp, polypectomy: Tubular adenoma, fragments. Separate fragments of hyperplastic polyp. B - Colon, hepatic flexure polyp, polypectomy: Tubular adenoma, fragments. Separate fragments of hyperplastic polyp. C - Sigmoid colon polyp, polypectomy: Tubular adenoma, fragments. Separate fragments of hyperplastic polyp. 03/08/2020 - 1149 CLINICAL DIAGNOSIS Colon polyps, family history colon cancer 03/07/2020 - 1416 GROSS DIAGNOSIS A - Received in formalin [...] cm. All in one. -OA 03/08/2020 - 1149 Signed JOSÉ MIGUEL SIMMONS MD 03/08/20201150 ID Date Data Source [id number] 03/02/2020 12:00:00 PM EDT [facility] Name Value Range Interpretation Code Description Data Martina rce(s) Supporting Document(s) SARS coronavirus 2 RNA [facility] This lab was ordered by [facility] and reported by [facility]. ID Date Data Source [id number] 01/17/2020 09:10:00 AM EDT [facility]) Name Value Range Interpretation Code Description Data Martina rce(s) Supporting Document(s) Thyrotropin [Units/volume] in Serum or Plasma by Detec tion limit <= 0.05 mIU/L 1.56 uIU/mL 0.36-3.74 [facility] ) ID Date Data Source [id number] 01/17/2020 09:10:00 AM EDT [facility] ([facility]) Name Value Range Interpretation Code Description Data Martina rce(s) Supporting Document(s) Triglyceride [Mass/volume] in Serum or Plasma 185 mg/dL 30-150 [facility] ([facility]) Cholesterol in HDL [Mass/volume] in Serum or Plasma 41 mg/dL 35-60 [facility] ([facility]) Cholesterol [Mass/volume] in Serum or Plasma 148 mg/dL 131-200 [facility] ([facility]) Cholesterol in LDL [Mass/volume] in Serum or Plasma by calcu lation 70 CALC 50-159 [facility] ([facility]) ID Date Data Source [id number] 01/17/2020 09:10:00 AM EDT [facility] ([facility] Name Value Range Interpretation Code Description Data Martina rce(s) Supporting Document(s) Glucose [Mass/volume] in Serum or Plasma 113 mg/dL 74-99 [facility] ([facility]) 100-125 mg/dL PRE-DIABETES/FASTING >126 mg/dL DIABETES/FASTING Sodium [Moles/volume] in Serum or Plasma 143 meq/L 136-145 [facility] ([facility]) Urea nitrogen [Mass/volume] in Serum or Plasma 12 mg/dL 7-18 [facility] ([facility]) Creatinine 1.1 mg/dL 0.6-1.3 [facility] Calcium [Mass/volume] in Serum or Plasma 9.4 mg/dL 8.5-10.1 [facility] ([facility]) Potassium [Moles/volume] in Serum or Plasma 4.4 meq/L 3.5-5.1 [facility] ([facility]) Carbon dioxide, total [Moles/volume] in Serum or Plasma 30 meq/L 21 -32 [facility] ([facility]) Chloride [Moles/volume] in Serum or Plasma 104 meq/L 98-107 [facility] ([facility]) Alkaline phosphatase isoenzyme [Units/volume] in Serum or Pl asma 75 mg/dL 46-116 [facility] ([facility]) Aspartate aminotransferase [Enzymatic activity/volume] in Serum or Plasma 29 U/L 15-37 [facility] ([facility] ) Total Bilirubin 0.4 mg/dL 0.2-1.0 [facility] ([facility]) Albumin [Mass/volume] in Serum or Plasma 4.0 g/dL 3.4-5.0 [facility] ([facility]) Proteinase 3 Ab [Units/volume] in Serum 7.0 g/dL 6.4-8.2 [facility] Alanine aminotransferase [Enzymatic activity/volume] in Seru m or Plasma 35 U/L 12-78 [facility] ([facility]) A/G Ratio 1.33 CALC 1.00-1.90 [facility] Glomerular filtration rate/1.73 sq M pre dicted among blacks [Volume Rate/Area] in Serum or Plasma by Creatinine-based formula (MDRD) Laboratory test result [facility] ([facility]) <content>CHRONIC KIDNEY DISEASE STAGING PER NKF</content>
<content></content>
<content>STAGE I & II GFR >= 60 NORMAL TO MILDLY DECREASED</content>
<content>STAGE III GFR 30-59 MODERATELY DECREASED</content>
<content>STAGE IV GFR 15-29 SEVERELY DECREASED</content>
<content>STAGE V GFR <15 VERY LITTLE GFR LEFT</content>
<content>ESRD GFR <15 ON PHYSICS TECHNICIAN</content>
<content></content> Glomerular filtration rate/1.73 sq M pre dicted among non-blacks [Volume Rate/Area] in Serum or Plasma by Creatinine-based formula (MDRD) Laboratory test result [facility] ([facility] ) ID Date Data Source [id number] 01/17/2020 09:10:00 AM EDT [facility] ([facility]) Name Value Range Interpretation Code Description Data Martina rce(s) Supporting Document(s) Hemoglobin [Mass/volume] in Blood 14.8 g/dL 12.0-18.0 [facility] ([facility] Leukocytes [#/volume] in Blood by Automated count 6.5 x10*3/UL 4.1-10 .9 [facility] ([facility]) Erythrocytes [#/volume] in Blood by Automated count 4.88 x10*6/UL 4.2 0-6.30 [facility] ([facility]) MCHC 33.4 g/dL 31.0-38.0 [facility] Hematocrit [Volume Fraction] of Blood by Automated count 44.5 % 3 7.0-51.0 [facility] ([facility]) MCV 91.2 fL 80.0-97.0 [facility]) MCH 30.4 pg 26.0-32.0 [facility] ([facility]) Platelets [#/volume] in Blood by Automated count 169 x10*3/UL 140-440 [facility] ([facility] Erythrocyte distribution width [Ratio] by Automated count 14.0 % 11.6-13.7 [facility] ([facility]) MPV 9.7 FL 7.8-11.0 [facility] Mid % 5.5 % 1.7-9.3 [facility]) Lymph % 20.3 % 10.0-58.5 [facility] Lymph # 1.3 x10*3/UL 0.6-4.1 [facility] ([facility]) Neut % 74.2 % 37.0-92.0 [facility] Neut # 4.8 x10*3/UL 2.0-7.8 [facility] ([facility]) Mid # 0.4 x10*3/UL 0.1-0.6 [facility] ([facility]) ID Date Data Source [id number] 09/20/2019 02:16:00 PM EDT [facility] ([facility]) Name Value Range Interpretation Code Description Data Martina rce(s) Supporting Document(s) Appearance, Urine Laboratory test result [facility] ([facility]) Specific [place] Urine Auto 1.023 1.002-1.035 [facility] ([facility]) PH,Urine 5.0 units 5.0-9.0 [facility] Color, Urine Laboratory test result [facility] NT ([facility]) Ketone, Urine Auto Laboratory test result [facility] Glucose, Urine (Ua) Auto Laboratory test result [facility] ([facility]) Protein, Urine Auto Laboratory test result [facility] ([facility]) Bilirubin, Urine Auto Laboratory test result [facility] ([facility]) Urobilinogen, Urine Auto 0.2 mg/dL 0.0-2.0 [facility] ([facility]) Nitrite, Urine Auto Laboratory test result [facility] ([facility]) Blood, Urine Blood Laboratory test result [facility]) Leukocyte Esterase, Urine Auto Laboratory test result [facility] ([facility]) WBC, Urine Auto 7 /HPF 0-3 [facility] ([facility]) Bacteria, Urine Auto Laboratory test result [facility] RBC, Urine Auto 2 /HPF 0-3 [facility] ([facility]) Squamous Epithelial Cell Ur AU 1 /HPF 0-6 [facility] Hyaline Cast, Urine Auto 13 /LPF 0-1 [facility] ([facility] Mucus, Urine Laboratory test result [facility] ([facility]) ID Date Data Source [id number] 09/20/2019 01:30:00 PM EDT [facility] ([facility] Name Value Range Interpretation Code Description Data Martina rce(s) Supporting Document(s) Lipoprotein lipase [Enzymatic activity/volume] in Serum or P lasma 169 U/L 73-393 [facility] ID Date Data Source [id number] 09/20/2019 01:30:00 PM EDT [facility] ([facility] Name Value Range Interpretation Code Description Data Martina rce(s) Supporting Document(s) Blood Urea Nitrogen 13 mg/dL 7-18 [facility] ([facility] Glucose, Fasting 134 mg/dL 70-100 [facility] ([facility] Creatinine For GFR 1.43 mg/dL 0.70-1.30 [facility] ([facility]) Sodium Level 137 meq/L 136-145 [facility] ([facility]) Glomerular Filtration Rate 52.4 [facility] ([facility]) <content>Units are mL/min/1.73 m2</content>
<content></content>
<content>Chronic Kidney Disease Staging per NKF:</content>
<content></content>
<content>Stage I & II GFR >=60 Normal to Mildly Decreased</content>
<content>Stage III GFR 30-59 Moderately Decreased</content>
<content>Stage IV GFR 15-29 Severely Decreased</content>
<content>Stage V GFR <15 Very Little GFR Left</content>
<content>ESRD GFR <15 on PHYSICS TECHNICIAN</content>
<content></content> Potassium Serum 4.3 meq/L 3.5-5.1 [facility] ([facility]) Anion Gap 6 meq/L 8-16 [facility] Carbon Dioxide Level 28 meq/L 21-32 [facility] ([facility]) Chloride Level 103 meq/L 98-107 [facility] ([facility]) Calcium Level 9.7 mg/dL 8.8-10.2 [facility] ([facility]) ID Date Data Source [id number] 09/20/2019 01:30:00 PM EDT [facility] ([facility]) Name Value Range Interpretation Code Description Data Martina rce(s) Supporting Document(s) Alt/SGPT 34 U/L 12-78 [facility]) Ast/Sgot 35 U/L 7-37 [facility] ([facility]) Bilirubin,Total 0.6 mg/dL 0.2-1.0 [facility] ([facility]) Alkaline Phosphatase 77 U/L 45-117 [facility] ([facility]) Total Protein 7.3 GM/DL 6.4-8.2 [facility] ([facility]) Bilirubin,Direct 0.2 mg/dL 0.0-0.2 [facility] ([facility]) Albumin 4.3 GM/DL 3.2-5.2 [facility]) Albumin/Globulin Ratio 1.43 1.00-1.93 [facility] ([facility]) ID Date Data Source [id number] 09/20/2019 01:30:00 PM EDT [facility] ([facility]) Name Value Range Interpretation Code Description Data Martina rce(s) Supporting Document(s) White Blood Count 7.7 10 4.0-10.0 [facility] ([facility]) Hemoglobin 15.3 g/dL 13.5-17.5 [facility] ([facility]) Red Blood Count 4.88 10 4.30-6.10 [facility] ([facility]) Mean Corpuscular Hemoglobin 31.4 pg 27.0-33.0 ME DENT ([facility]) Hematocrit 47.1 % 42.0-52.0 [facility] ([facility]) Mean Corpuscular Volume 96.5 fl 80.0-96.0 [facility] ([facility]) Mean Corpuscular HGB Conc 32.5 g/dL 32.0-36.5 [facility] NT ([facility]) Red Cell Distribution Width 14.6 % 11.5-14.5 [facility] ([facility]) Platelet Count, Automated 174 10 150-450 [facility] ([facility]) Lymph % 18.0 % 24.0-44.0 [facility] Neutrophils % 70.4 % 36.0-66.0 [facility] ([facility]) [place] % 9.2 % 0.0-5.0 [facility] Immature Granulocyte % 0.3 % 0-3.0 [facility] ([facility]) Baso % 0.7 % 0.0-1.0 [facility] Eos % 1.4 % 0.0-3.0 [facility] Lymph # 1.4 10 1.5-5.0 [facility] [facility] Nucleated Red Blood Cell % 0.0 % 0-0 [facility] ([facility]) Neutrophils # 5.4 10 1.5-8.5 [facility] ([facility]) Eos # 0.1 10 0.0-0.5 [facility] Baso # 0.1 10 0.0-0.2 [facility]) [place] # 0.7 10 0.0-0.8 [facility]) ID Date Data Source [id number] 09/08/2019 08:35:00 AM EDT [facility] Name Value Range Interpretation Code Description Data Martina rce(s) Supporting Document(s) Carotid Ultrasound Bilateral <pending> M [facility] ([facility]) Arterial Ultrasound Lower Extremity Left <pending> [facility] ([facility]) ID Date Data Source [id number] 08/03/2019 07:55:00 AM EST [facility] ([facility]) Name Value Range Interpretation Code Description Data Martina rce(s) Supporting Document(s) Thyrotropin [Units/volume] in Serum or Plasma by Detec tion limit <= 0.05 mIU/L 2.67 uIU/mL 0.36-3.74 [facility] ([facility] ) ID Date Data Source [id number] 08/03/2019 07:55:00 AM EST [facility] ([facility]) Name Value Range Interpretation Code Description Data Martina rce(s) Supporting Document(s) Cholesterol [Mass/volume] in Serum or Plasma 161 mg/dL 131-200 [facility] ([facility]) Cholesterol in LDL [Mass/volume] in Serum or Plasma by calcu lation 81 CALC 50-159 [facility] ([facility]) Triglyceride [Mass/volume] in Serum or Plasma 150 mg/dL 30-150 [facility] ([facility]) Cholesterol in HDL [Mass/volume] in Serum or Plasma 50 mg/dL 35-60 [facility] ([facility]) ID Date Data Source [id number] 08/03/2019 07:55:00 AM EST [facility] ([facility]) Name Value Range Interpretation Code Description Data Martina rce(s) Supporting Document(s) Glucose [Mass/volume] in Serum or Plasma 117 mg/dL 74-99 [facility] ([facility]) 100-125 mg/dL PRE-DIABETES/FASTING >126 mg/dL DIABETES/FASTING Urea nitrogen [Mass/volume] in Serum or Plasma 9 mg/dL 7-18 [facility] ([facility]) Creatinine 1.1 mg/dL 0.6-1.3 [facility] Sodium [Moles/volume] in Serum or Plasma 141 meq/L 136-145 [facility] ([facility]) Potassium [Moles/volume] in Serum or Plasma 4.6 meq/L 3.5-5.1 [facility] ([facility]) Chloride [Moles/volume] in Serum or Plasma 103 meq/L 98-107 [facility] ([facility]) Carbon dioxide, total [Moles/volume] in Serum or Plasma 28 meq/L 21 -32 [facility] ([facility]) Calcium [Mass/volume] in Serum or Plasma 9.4 mg/dL 8.5-10.1 [facility] ([facility]) Alkaline phosphatase isoenzyme [Units/volume] in Serum or Pl asma 72 mg/dL 46-116 [facility] ([facility]) Total Bilirubin 0.5 mg/dL 0.2-1.0 [facility] ([facility]) Alanine aminotransferase [Enzymatic activity/volume] in Seru m or Plasma 51 U/L 12-78 [facility] ([facility]) Aspartate aminotransferase [Enzymatic activity/volume] in Serum or Plasma 55 U/L 15-37 [facility] ([facility] ) Proteinase 3 Ab [Units/volume] in Serum 7.0 g/dL 6.4-8.2 [facility] ([facility]) Albumin [Mass/volume] in Serum or Plasma 4.1 g/dL 3.4-5.0 [facility] ([facility]) A/G Ratio 1.41 CALC 1.00-1.90 [facility] [facility]) Glomerular filtration rate/1.73 sq M pre dicted among non-blacks [Volume Rate/Area] in Serum or Plasma by Creatinine-based formula (MDRD) Laboratory test result [facility] ([facility] Glomerular filtration rate/1.73 sq M pre dicted among blacks [Volume Rate/Area] in Serum or Plasma by Creatinine-based formula (MDRD) Laboratory test result [facility] ([facility] <content>CHRONIC KIDNEY DISEASE STAGING PER NKF</content>
<content></content>
<content>STAGE I & II GFR >= 60 NORMAL TO MILDLY DECREASED</content>
<content>STAGE III GFR 30-59 MODERATELY DECREASED</content>
<content>STAGE IV GFR 15-29 SEVERELY DECREASED</content>
<content>STAGE V GFR <15 VERY LITTLE GFR LEFT</content>
<content>ESRD GFR <15 ON PHYSICS TECHNICIAN</content>
<content></content> ID Date Data Source [id number] 08/03/2019 07:55:00 AM EST [facility] ([facility] Name Value Range Interpretation Code Description Data Martina rce(s) Supporting Document(s) Leukocytes [#/volume] in Blood by Automated count 5.8 x10*3/UL 4.1-10 .9 [facility] Erythrocytes [#/volume] in Blood by Automated count 4.81 x10*6/UL 4.2 0-6.30 [facility] ([facility] Hemoglobin [Mass/volume] in Blood 14.5 g/dL 12.0-18.0 [facility] ([facility] MCV 91.4 fL 80.0-97.0 [facility] ([facility]) Hematocrit [Volume Fraction] of Blood by Automated count 44.0 % 3 7.0-51.0 [facility] ([facility]) MCH 30.1 pg 26.0-32.0 [facility] MCHC 32.9 g/dL 31.0-38.0 [facility] ([facility]) Erythrocyte distribution width [Ratio] by Automated count 14.0 % 11.6-13.7 [facility] ([facility] Platelets [#/volume] in Blood by Automated count 157 x10*3/UL 140-440 [facility] ([facility]) MPV 10.4 FL 7.8-11.0 [facility] [facility] Lymph % 21.9 % 10.0-58.5 [facility] Mid % 4.8 % 1.7-9.3 [facility] [facility] Neut % 73.3 % 37.0-92.0 [facility] Lymph # 1.2 x10*3/UL 0.6-4.1 [facility] ([facility]) Mid # 0.4 x10*3/UL 0.1-0.6 [facility] ([facility]) Neut # 4.2 x10*3/UL 2.0-7.8 [facility] ([facility]) Procedure Social History Code Duration Value Status Description Data Source(s ) Smoking 03/09/2020 12:00:00 AM EDT Patient is a former smoker completed Patient is a former smoker [facility] ([facility], ) 09/08/2019 12:00:00 AM EDT Patient is a former smoker completed [facility] is a [facility] sm[facility] Vital Signs ID Date Data Source UNK Name Value Range Interpretation Code Description Data Source(s) Body mass index (BMI) [Ratio] 29.7 kg/m2 29.7 k g/m2 [facility] Body weight 184.00 [lb_av] 184.00 [lb_av] [facility] ([facility]) Body height 66 [in_i] 66 [in_i] [facility] ([facility]) 5'6" Heart rate 64 /min 64 /min [facility] ([facility]) Diastolic blood pressure 76 mm[Hg] 76 mm[Hg] [facility] ([facility]) Systolic blood pressure 126 mm[Hg] 126 mm[Hg] M [facility] ([facility]) Body surface area Derived from formula 1.97 m2 1.97 m2 [facility] ([facility]) Body weight 84.823 kg 84.823 kg [facility] ([facility], ) [place] body weight 148 [lb_av] 148 [lb_av] [facility] ([facility]) Body mass index (BMI) [Ratio] 29.3 kg/m2 29.3 k g/m2 [facility] ([facility]) Body weight 187.00 [lb_av] 187.00 [lb_av] [facility] ([facility]) Body height 67 [in_i] 67 [in_i] [facility] ([facility]) 5'7" Body mass index (BMI) [Ratio] 28.8 kg/m2 28.8 k g/m2 [facility] ([facility]) Body height 67 [in_i] 67 [in_i] [facility] ([facility], [facility]) 5'7" Body weight 184.00 [lb_av] 184.00 [lb_av] [facility] T ([facility], [facility]) Body temperature 98.7 [degF] 98.7 [degF] [facility]) Oxygen saturation in Arterial blood by Pulse oximetry 99 % 99 % [facility] ([facility] Respiratory rate 16 /min 16 /min [facility] ( [facility]) Heart rate 78 /min 78 /min [facility] ([facility], [facility]) Diastolic blood pressure 82 mm[Hg] 82 mm[Hg] [facility]) Systolic blood pressure 140 mm[Hg] 140 mm[Hg] [facility] ([facility] [facility], [facility]) Body surface area Derived from formula 1.91 m2 1.91 m2 [facility] ([facility]) Body weight 79.380 kg 79.380 kg [facility] ([facility]) [place] body weight 148 [lb_av] 148 [lb_av] [facility] ([facility]) Body mass index (BMI) [Ratio] 27.4 kg/m2 27.4 k g/m2 [facility] ([facility]) Body weight 175.00 [lb_av] 175.00 [lb_av] [facility] ([facility]) Body height 67 [in_i] 67 [in_i] [facility] ([facility]) 5'7" Oxygen saturation in Arterial blood by Pulse oximetry 96 % 96 % [facility] ([facility]) Room Air Heart rate 90 /min 90 /min [facility] ([facility]) Diastolic blood pressure 78 mm[Hg] 78 mm[Hg] [facility] ([facility]) Systolic blood pressure 130 mm[Hg] 130 mm[Hg] [facility] ([facility]) Body mass index (BMI) [Ratio] 28.4 kg/m2 28.4 k g/m2 [facility] ([facility]) Oxygen saturation in Arterial blood by Pulse oximetry 94 % 94 % [facility] ([facility]) Body weight 176.00 [lb_av] 176.00 [lb_av] [facility] ([facility]) Body height 66 [in_i] 66 [in_i] [facility] ([facility] 5'6" Heart rate 78 /min 78 /min [facility] ([facility]) Diastolic blood pressure 76 mm[Hg] 76 mm[Hg] [facility] ([facility]) Systolic blood pressure 130 mm[Hg] 130 mm[Hg] [facility] ([facility]) Body mass index (BMI) [Ratio] 30.0 kg/m2 30.0 k g/m2 [facility] ([facility]) Oxygen saturation in Arterial blood by Pulse oximetry 97 % 97 % [facility] Body weight 186.00 [lb_av] 186.00 [lb_av] [facility] ([facility]) Body height 66 [in_i] 66 [in_i] [facility] 5'6" Heart rate 80 /min 80 /min [facility] Diastolic blood pressure 84 mm[Hg] 84 mm[Hg] [facility]) Systolic blood pressure 120 mm[Hg] 120 mm[Hg] [facility] ([facility]) Body surface area 1.96 m2 1.96 m2 [facility] Body mass index (BMI) [Ratio] 29.0 kg/m2 29.0 k g/m2 [facility] ([facility]) Body height 67 [in_i] 67 [in_i] [facility] 5'7" Body weight 185.00 [lb_av] 185.00 [lb_av] [facility] T ([facility]) Body mass index (BMI) [Ratio] 29.8 kg/m2 29.8 k g/m2 [facility] ([facility] Body weight 86.184 kg 86.184 kg [facility] ([facility] Body weight 190.00 [lb_av] 190.00 [lb_av] [facility] T ([facility]) Body height 67 [in_i] 67 [in_i] [facility] ([facility]) 5'7" Diastolic blood pressure 82 mm[Hg] 82 mm[Hg] [facility] ([facility]) Systolic blood pressure 140 mm[Hg] 140 mm[Hg] [facility] Body weight 85.730 kg 85.730 kg [facility] ([facility]) Body mass index (BMI) [Ratio] 29.6 kg/m2 29.6 k g/m2 [facility] ([facility]) Body weight 189.00 [lb_av] 189.00 [lb_av] [facility] T ([facility]) Body height 67 [in_i] 67 [in_i] [facility] ([facility]) 5'7" Diastolic blood pressure 72 mm[Hg] 72 mm[Hg] [facility] Systolic blood pressure 102 mm[Hg] 102 mm[Hg] [facility] Body mass index (BMI) [Ratio] 30.5 kg/m2 30.5 k g/m2 [facility] ([facility]) Body weight 189.00 [lb_av] 189.00 [lb_av] [facility] T ([facility]) Body height 66 [in_i] 66 [in_i] [facility] ([facility] 5'6" Heart rate 78 /min 78 /min [facility] ([facility]) Diastolic blood pressure 80 mm[Hg] 80 mm[Hg] [facility] ([facility]) Systolic blood pressure 136 mm[Hg] 136 mm[Hg] [facility] Body weight 85.277 kg 85.277 kg [facility] ([facility], ) Body mass index (BMI) [Ratio] 29.4 kg/m2 29.4 k g/m2 [facility] ([facility], ) Body weight 188.00 [lb_av] 188.00 [lb_av] [facility] ([facility], ) Body height 67 [in_i] 67 [in_i] [facility] ([facility], ) 5'7" Oxygen saturation in Arterial blood by Pulse oximetry 95 % 95 % [facility] ([facility], ) Heart rate 82 /min 82 /min [facility] ([facility], ) Diastolic blood pressure 80 mm[Hg] 80 mm[Hg] [facility] ([facility], ) Systolic blood pressure 130 mm[Hg] 130 mm[Hg] [facility]
[2020-08-10] MEDS: PANTOPRAZOLE 40MG TAB (PROTONIX) PO SCH ×2 (09:00→16:28)
[2020-08-10] MEDS: SENOKOT S TAB PO SCH ×2 (09:00→19:57)
[2020-08-10] MEDS ORDERED: NS 1,550 ML in IV 1 EA IV ONE (09:15)
[2020-08-10 09:21] LABS: BILIRUBIN,DIRECT 0.3 MG/DL (0.0-0.2); BILIRUBIN,TOTAL 0.9 MG/DL (0.2-1.0); CALCIUM LEVEL 9.2 MG/DL (8.8-10.2); CK-MB VALUE MASS 1.1 NG/ML (<3.6); CREATININE FOR GFR 1.47 MG/DL (0.70-1.30); GLOMERULAR FILTRATION RATE 50.6 (>49); MB/CK RELATIVE INDEX 1.13 (< OR =4); POTASSIUM SERUM 5.2 MEQ/L (3.5-5.1); TOTAL PROTEIN 7.3 GM/DL (6.4-8.2); TROPONIN I 0.02 NG/ML (< 0.10)
[2020-08-10 09:22] LABS: INR 0.97; PROTHROMBIN TIME 13.1 SECONDS (12.5-14.3)
[2020-08-10] MEDS ORDERED: ISOVUE-370 76% 100ML VIAL As Ordered ONE (09:26)
--- NOTE | 2020-08-10 09:41 | ECGEPIP ---
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
--- NOTE | 2020-08-10 09:54 | REP ---
INDICATION: right lower quadrant pain. History a of head and neck malignancy. COMPARISON: Comparison CT study September 20, 2019.. TECHNIQUE: Helical scanning was acquired and 4 mm axial images are re-formatted. Coronal and sagittal MPR images were generated and reviewed. The contrast enhancement dose is 100 mL of intravenous Isovue 370. FINDINGS: Digital preliminary machine helper radiograph is unremarkable. On axial CT images, there is mild linear fibrosis in the lingula and right middle lobe at the lung bases. This is unchanged from the September 20, 2019 study. There is marked diffuse fatty infiltration of the liver. No focal liver lesion is seen. The spleen is unremarkable. No abnormality is observed in the gallbladder or pancreas. Normal adrenal glands are seen. The kidneys enhance symmetrically. There is a tiny cortical cyst the left mid kidney and bilateral vascular calcification is observed. No retroperitoneal mass or adenopathy is seen. There is fairly extensive inflammatory change in the right lower quadrant surrounding a dilated fluid distended appendix with mural thickening and enhancement and Alda appendiceal streaking. There is minimal fluid in the pericolic gutter and right lower quadrant. There is no abscess. There are 2 diet tiny bubbles of noncontained intraperitoneal air visible on the scan, 1 posteriorly adjacent to the appendix itself, and the other along the right mid abdominal wall anteriorly consistent with 2 bubbles of free intraperitoneal air. There are slightly hypertrophied right lower quadrant mesenteric lymph nodes. There are several loops of borderline caliber fluid-filled proximal small bowel consistent with ileus. Seminal vesicles, prostate and urinary bladder are unremarkable. There are mild left colonic diverticulosis changes. No abdominal wall defect or bony destructive lesion. IMPRESSION: Changes indicating acute appendicitis with considerable Alda appendiceal inflammatory reaction, a small amount of right pericolic gutter ascites fluid, 2 bubbles of free intraperitoneal air, and mildly hypertrophied mesenteric lymph nodes. No abscess is seen. Also noted is marked diffuse fatty infiltration of the liver. <Electronically signed by Gary Miller > 08/10/20 [id number]
[2020-08-10] MEDS ORDERED: HYDROMORPHONE HCL 0.5 MG/ 0.5 ML SYRINGE (J1170 PER 1) IV PRN ×2 (10:15→15:15)
[2020-08-10] MEDS ORDERED: PIPERACILLIN/TAZOBACTAM SOD 3.375 GM in D5W MINI-BAG PLUS 50 ML IV ONE (10:15)
[2020-08-10 10:28] LABS: RSV AMPLIFICATION NEGATIVE (NEGATIVE)
[2020-08-10] MEDS ORDERED: BENZ-18 PO (10:35)
[2020-08-10] MEDS ORDERED: ATOR80TA59 PO (10:35)
--- NOTE | 2020-08-10 10:47 | REP ---
INDICATION: preop COMPARISON: 08/10/2012 TECHNIQUE: Portable AP view of the chest FINDINGS: The mediastinum and cardiac silhouette are stable and within normal limits for portable technique. The lung ruffin are clear without acute consolidation, effusion, or pneumothorax. Skeletal structures are intact. IMPRESSION: No acute cardiopulmonary process appreciated. If the patient remains symptomatic consider chest CT for further investigation. <Electronically signed by Nghia Garza > 08/10/20 1044
[2020-08-10] MEDS: NS 1,000 ML IV SCH ×3 (10:53→23:22)
[2020-08-10] MEDS ORDERED: ONDANSETRON 4MG/2ML VIAL IV PRN ×2 (11:00→15:15)
[2020-08-10] MEDS ORDERED: NORCO, ANEXSIA 5/325MG TABLET (HYDROcodone/ACETAMINOPHEN) PO PRN (11:00)
--- OUTSIDE RECORDS SUMMARY | 2020-08-10 11:09 | CCD ---
Author Author [facility] Organization [facility] Address Unknown Phone Unavailable Care Team Providers Care Staking Technician Name Role Phone Celia, Shraddha DO Unavailable [...] Unavailable Celia, Shraddha DO Unavailable Unavailable Celia, Hsraddha DO Unavailable Unavailable [place], F Yuri DANGELO Unavailable Unavailable [place] F Yuri DANGELO Unavailable Unavailable [place] F Yuri DANGELO Unavailable Unavailable [place] F Yuri DANGELO Unavailable Unavailable EusebioLanie MD Unavailable Unavailable EusebioLaine MD Unavailable Unavailable [place] MD Unavailable Unavailable Eusebio F Yuri DANGELO Unavailable Unavailable [place] F Yuri DANGELO Unavailable Unavailable Eusebio F Yuri DANGELO Unavailable Unavailable Eusebio, F Yuri DANGELO Unavailable Unavailable Eusebio, F Yuri DANGELO Unavailable Unavailable [place], F Yuri DANGELO Unavailable Unavailable [place], F Yuri DANGELO Unavailable Unavailable Eusebio, F Yuri DANGELO Unavailable Unavailable [place], F Yuri DANGELO Unavailable Unavailable Eusebio, F Yuri DANGELO Unavailable Unavailable Eusebio, F Yuri DANGELO Unavailable Unavailable Eusebio, F Yuri DANGELO Unavailable Unavailable [place], F Yuri DANGELO Unavailable Unavailable Eusebio F Yuri DANGELO Unavailable Unavailable Eusebio F Yuri DANGELO Unavailable Unavailable [place], F Yuri DANGELO Unavailable Unavailable [place], F Yuri DANGELO Unavailable Unavailable Eusebio, F Yuri DANGELO Unavailable Unavailable [place], F Yuri DANGELO Unavailable Unavailable Eusebio, F Yuri DANGELO Unavailable Unavailable EusebioLaine MD Unavailable Unavailable [place] MD Unavailable Unavailable EusebioLaine MD Unavailable Unavailable EusebioLaine MD Unavailable Unavailable [place] MD Unavailable Unavailable EusebioLaine MD Unavailable Unavailable EusebioLaine MD Unavailable Unavailable [place] MD Unavailable Unavailable EusebioLaine MD Unavailable Unavailable EusebioLaine MD Unavailable Unavailable [place] MD Unavailable Unavailable EusebioLaine MD Unavailable Unavailable [place] MD Unavailable Unavailable [place] MD Unavailable Unavailable [place] MD Unavailable Unavailable EusebioLaine MD Unavailable Unavailable [place] MD Unavailable Unavailable EusebioLaine MD Unavailable Unavailable EusebioLaine MD Unavailable Unavailable EusebioaLine MD Unavailable Unavailable EusebioLaine MD Unavailable Unavailable EusebioLaine MD Unavailable Unavailable [place] MD Unavailable Unavailable EusebioLaine MD Unavailable Unavailable [place] MD Unavailable Unavailable EusebioLaine MD Unavailable Unavailable EusebioLaine MD Unavailable Unavailable EusebioLaine MD Unavailable Unavailable [place] MD Unavailable Unavailable [place] MD Unavailable Unavailable EusebioLaine MD Unavailable Unavailable [place] MD Unavailable Unavailable [place] MD Unavailable Unavailable EusebioLaine MD Unavailable Unavailable EusebioLaine MD Unavailable Unavailable [place] frazier MD Unavailable Unavailable EusebioLaine MD Unavailable Unavailable [place] MD Unavailable Unavailable [place] MD Unavailable Unavailable EusebioLaine MD Unavailable Unavailable EusebioLaine MD Unavailable Unavailable [place] MD Unavailable Unavailable [place] frazier MD Unavailable Unavailable EusebioLaine MD Unavailable Unavailable [place] MD Unavailable Unavailable [place] MD Unavailable Unavailable [place] MD Unavailable Unavailable [place] MD Unavailable Unavailable EusebioLaine MD Unavailable Unavailable [place] MD Unavailable Unavailable [place] MD Unavailable Unavailable [place] MD Unavailable Unavailable EusebioLaine MD Unavailable Unavailable EusebioLaine MD Unavailable Unavailable [place] MD Unavailable Unavailable [place] frazier MD Unavailable Unavailable Laine Kaplan MD Unavailable Unavailable Laine Kaplan MD Unavailable Unavailable [place] frazier MD Unavailable Unavailable Kirsten-Edsonhromi Piterjeremiah DANGELO [...] Kirsten-Jahromi Piterjeremiah DANGELO Unavailable Unavailabl e Kirsten-Jahromi Pitrejeremiah DANGELO Unavailable Unavailabl e Chazbaran-Jahromi Piterjeremiah DANGELO [...] Lance Hugo MD Unavailable Unavailable Dorsey, Alda HOME SERVICE DIRECTOR Unavailable Unavailable Dorsey, Alda HOME SERVICE DIRECTOR Unavailable Unavailable Dorsey, Alda HOME SERVICE DIRECTOR Unavailable Unavailable Dorsey, Alda HOME SERVICE DIRECTOR Unavailable Unavailable Dorsey, Alda HOME SERVICE DIRECTOR Unavailable Unavailable Dorsey, Alda HOME SERVICE DIRECTOR Unavailable Unavailable Dosrey, Alda HOME SERVICE DIRECTOR Unavailable Unavailable Dorsey, Alda HOME SERVICE DIRECTOR Unavailable Unavailable Dorsey, Alda HOME SERVICE DIRECTOR Unavailable Unavailable Dorsey, Alda HOME SERVICE DIRECTOR Unavailable Unavailable Dorsey, Alda HOME SERVICE DIRECTOR Unavailable Unavailable Kristofer Feliciano MD Unavailable Unavailable [...] is protected by Article 27-F of the [facility] Public Health law. If you continue you may have access to information: Regarding HIV / AIDS; Provided by facilities licensed or operated by the [facility] Office of Mental Health; or Provided by the [facility] Office for People With Developmental Disabilities. If such information is present, then the following [facility] mandated warning applies: This information has [...] law may result in a fine or senior living sentence or both. A general authorization for the release of medical or other information is NOT sufficient authorization for further disc losure. Family History Family Member Name Family Member Gender Family Member Status Date o f Status Description Data Source(s) Unknown Male Problem [facility] ([facility]) Unknown Unknown Problem [facility] ([facility]) Unknown Unknown Problem [facility] ([facility]) Unknown Female Problem 04/09/2016 12:00:00 AM EDT [facility] ([facility]) Encounters Encounter Providers Location Date Indications Data Source(s ) Office Visit Attender: Yuri Alfred 0 07/26/2020 07:00:00 AM EST [facility] ([facility] ) Outpatient Attender: lAda ibanez 04/29/2020 02:30:00 PM EDT [facility] ([facility] Outpatient Attender: Meng Quan/Cheikh/Nate/R willa 03/09/2020 10:00:00 AM EDT [facility] ([facility] Office Visit Attender: Yuri Alfred 0 03/02/2020 09:20:00 AM EDT MED[facility] ([facility] ) Outpatient Attender: Yuri Alfred 0 01/17/2020 09:00:00 AM EDT [facility] ([facility] ) Outpatient Attender: Piter Shelby MD [facility] 11/25/2019 08:30:00 AM EDT [facility] ([facility]) Outpatient Referrer: Shraddha Yang DO 10/08/2019 05:55:00 AM EDT [facility] Outpatient Attender: Jassi Hugo MD Main Office 09/08/2019 09:30:00 AM EDT [facility] ([facility]) Outpatient Attender: Yuri Alfred 0 07/27/2019 01:30:00 PM EST MED[facility] ([facility] ) Outpatient Attender: SLY Quan/Cheikh/Nate/R eindl 07/15/2019 01:30:00 PM EST [facility] ([facility] ) Medications Medication Brand Name Start [...] 2:00:00 AM EST ORAL active MED[facility] ( [facility]) Alprazolam 0.5 MG Oral Tablet ALPRAZOLAM [...] 12:00: 00 AM EDT ORAL active [facility] ([facility] 1 gram 04/29/2020 12:00:00 AM EDT tablet 4 TAKE TWO TABLETS BY MOUTH TWICE A DAY FOR 1 DAY TAKE TWO TABLETS BY MOUTH TWICE A DAY FOR 1 DAY SOLD: 2019 [facility] clopidogrel 75 MG Oral Tablet Clopidogrel Bisulfate 04/04/2020 1 2:00:00 AM EDT active MED[facility] ( [facility]) 115-21 mcg/actuation 04/03/2020 12:00:00 AM EDT [...] 03/09/2020 12:00: 00 AM EDT active MED[facility] ([facility], ) varenicline 1 MG Oral Tablet [Chantix] Chantix 03/09/2020 12:00:00 A M EDT active [facility] ([facility], ) 1 mg 03/09/2020 12:00:00 AM EDT [...] 03/01/2020 12:00:00 AM EDT ORAL completed [facility] ([facility], ) 115-21 mcg/actuation 02/24/2020 12:00:00 AM EDT [...] Kit 09/07/2019 12:00:00 AM EDT active MED[facility] ([facility], ) Magnesium Hydroxide 80 MG/ML Oral Suspension Milk Of Magnesi a 09/07/2019 12:00:00 AM EDT ORAL active M EDENT ([facility], ) pantoprazole 40 MG Delayed Release Oral [...] 2:00:00 AM EST ORAL active MED[facility] ( [facility]) benzonatate 100 MG Oral Capsule BENZONATATE [...] relationship to armenta Policy Armenta Plan Information MEDICARE [id number] SP [id number] A BCBS [place] PPO 302/307 [id number] WI2 [id number] [facility] [id number] P VYS [id number] BS [place] Trad/ Commercial [id number] Family Dependen t [id number] MEDICARE [id number] Dana [id number] [facility] [id number] Spo VYS [id number] [facility] [id number] Family Dependent [id number] MEDICARE PI [facility] PI [facility] Medigap Part B [id number] Family Dependent [id number] [employer] BCBS Health Maintenance Organization (HMO) [id number] Family Dependent [id number] Medicare Medigap Part B [id number] Self [id number] [employer] Commercial [id number] Family Dependent [id number] BCBS/[employer] Commercial [id number] Family Dependent [id number] [employer] BCBS Medigap Part B [id number] Family Dependent [id number] [employer] BCBS Health Maintenance Organization (HMO) [id number] Family Dependent [id number] [employer] BCBS Medigap Part B [id number] Family Dependent [id number] [employer] BC[employer] Health Maintenance Organization (HMO) [id number] Family Dependent [id number] [employer] BCBS Medigap Part B [id number] Family Dependent [id number] [employer] BC[employer] Health Maintenance Organization (HMO) [id number] Family Dependent [id number] [employer]BS Medigap Part B [id number] Family Dependent [id number] [employer] BC[employer] Health Maintenance Organization (HMO) [id number] Family Dependent [id number] [employer] Medigap Part B [id number] Family Dependent [id number] [employer] BCBS Health Maintenance Organization (HMO) [id number] Family Dependent [id number] [employer] BCBS Medigap Part B [id number] Family Dependent [id number] [employer] BC[employer] Health Maintenance Organization (HMO) [id number] Family Dependent [id number] BS [place] Trad/MX Commercial 802 Family Dependent 802 MEDICARE C [id number] P [id number] A [employer] BCBS Medigap Part B Family Dependent [employer] BCBS Health Maintenance Organization (HMO) Family Dependent BCBS [place] PPO 302/307 [id number] WI2 [id number] BCBS OF [place] 306/806 [id number] SP [id number] SELF PAY UNAVAILABLE SP UNAVAILA BLE BLUE CROSS BLUE SHIELD-CLINIC [id number] 01 [id number] BLUE CROSS BLUE SHIELD-O/P [id number] Problems, Conditions, and Diagnoses Code Display Name Description Problem Type Effective Dates Data Source(s) 707149323 Dietary management surveillance Dietary manageme nt surveillance Problem 11/25/2019 12:00:00 AM EDT [facility] ([facility]) [id number] Essential hypertension Essential hypertension Problem 09/07/2019 12:00:00 AM EDT MED[facility] ([facility]) Surgeries/Procedures Procedure Description Date Indications Data Source(s) Spirometry 03/09/2020 12:00:00 AM EDT M EDENT ([facility]) Colonoscopy 03/07/2020 12:00:00 AM EDT M EDENT ([facility]) Colonoscopy W/ Poly 03/07/2020 12:00:00 AM EDT MED[facility] ([facility]) DUPLEX SCAN EXTRACRANIAL ART COMPL BI STUDY 09/08/2019 12:00:00 AM EDT [facility] ([facility]) DUP-SCAN LXTR ART/ARTL BPGS UNI/LMTD STUDY 09/08/2019 12:00:00 AM EDT MED[facility] ([facility]) Spirometry 07/15/2019 12:00:00 AM EST M EDENT ([facility]) Results ID Date Data Source [id number] 08/10/2020 07:54:00 AM EST MED[facility] ([facility]) Name Value Range Interpretation Code Description Data Martina rce(s) Supporting Document(s) Red Blood Count 5.49 10 4.30-6.10 [facility] ([facility]) White Blood Count 8.9 10 4.0-10.0 [facility] ([facility]) Hemoglobin 16.4 g/dL 13.5-17.5 [facility] Mean Corpuscular Volume 94.0 fl 80.0-96.0 [facility] Hematocrit 51.6 % 42.0-52.0 [facility] Mean Corpuscular Hemoglobin 29.9 pg 27.0-33.0 [place] DENT ([facility]) Mean Corpuscular HGB Conc 31.8 g/dL 32.0-36.5 MEDE NT ([facility]) Red Cell Distribution Width 14.2 % 11.5-14.5 ME DENT ([facility]) Lymph % 11.9 % 24.0-44.0 [facility] Neutrophils % 83.6 % 36.0-66.0 MED[facility] ([facility]) Platelet Count, Automated 226 10 150-450 MEDE NT ([facility]) Carroll % 2.9 % 0.0-5.0 [facility] Baso % 0.4 % 0.0-1.0 [facility] Eos % 0.9 % 0.0-3.0 [facility] Nucleated Red Blood Cell % 0.0 % 0-0 MED ENT ([facility]) Immature Granulocyte % 0.3 % 0-3.0 [facility] ([facility]) Neutrophils # 7.5 10 1.5-8.5 [facility] ([facility]) Carroll # 0.3 10 0.0-0.8 [facility] [facility] Eos # 0.1 10 0.0-0.5 [facility] Lymph # 1.1 10 1.5-5.0 [facility] [facility] Baso # 0.0 10 0.0-0.2 [facility] ID Date Data Source [id number] 07/26/2020 08:23:00 AM EST [facility] ([facility]) Name Value Range Interpretation Code Description Data Martina rce(s) Supporting Document(s) Thyrotropin [Units/volume] in Serum or Plasma by Detec tion limit <= 0.05 mIU/L 2.26 uIU/mL 0.36-3.74 [facility] ([facility] ) ID Date Data Source [id number] 07/26/2020 08:23:00 AM EST [facility] ([facility]) Name Value Range Interpretation Code Description Data Martina rce(s) Supporting Document(s) Cholesterol in HDL [Mass/volume] in Serum or Plasma 45 mg/dL 35-60 [facility] ([facility]) Cholesterol [Mass/volume] in Serum or Plasma 171 mg/dL 131-200 [facility] ([facility]) Triglyceride [Mass/volume] in Serum or Plasma 142 mg/dL 30-150 [facility] ([facility]) Cholesterol in LDL [Mass/volume] in Serum or Plasma by calcu lation 98 CALC 50-159 [facility] ([facility]) ID Date Data Source [id number] 07/26/2020 08:23:00 AM EST [facility] ([facility]) Name Value Range Interpretation Code Description Data Martina rce(s) Supporting Document(s) Urea nitrogen [Mass/volume] in Serum or Plasma 10 mg/dL 7-18 [facility] ([facility]) Glucose [Mass/volume] in Serum or Plasma 122 mg/dL 74-99 [facility] ([facility]) 100-125 mg/dL PRE-DIABETES/FASTING >126 mg/dL DIABETES/FASTING Creatinine 1.1 mg/dL 0.6-1.3 [facility] ([facility]) Sodium [Moles/volume] in Serum or Plasma 138 meq/L 136-145 [facility] ([facility]) Potassium [Moles/volume] in Serum or Plasma 4.9 meq/L 3.5-5.1 [facility] ([facility]) Chloride [Moles/volume] in Serum or Plasma 100 meq/L 98-107 [facility] ([facility]) Calcium [Mass/volume] in Serum or Plasma 9.5 mg/dL 8.5-10.1 [facility] ([facility]) Alkaline phosphatase isoenzyme [Units/volume] in Serum or Pl asma 84 mg/dL 46-116 [facility] ([facility]) Carbon dioxide, total [Moles/volume] in Serum or Plasma 30 meq/L 21 -32 [facility] ([facility]) Aspartate aminotransferase [Enzymatic activity/volume] in Serum or Plasma 38 U/L 15-37 [facility] ([facility] ) Total Bilirubin 0.4 mg/dL 0.2-1.0 [facility] ([facility]) Alanine aminotransferase [Enzymatic activity/volume] in Seru m or Plasma 47 U/L 12-78 [facility] Albumin [Mass/volume] in Serum or Plasma 4.2 g/dL 3.4-5.0 [facility] Proteinase 3 Ab [Units/volume] in Serum 7.4 g/dL 6.4-8.2 [facility] A/G Ratio 1.31 CALC 1.00-1.90 [facility] Glomerular filtration rate/1.73 sq M pre dicted among non-blacks [Volume Rate/Area] in Serum or Plasma by Creatinine-based formula (MDRD) Laboratory test result [facility] Glomerular filtration rate/1.73 sq M pre dicted among blacks [Volume Rate/Area] in Serum or Plasma by Creatinine-based formula (MDRD) Laboratory test result [facility] ([facility]) <content>CHRONIC KIDNEY DISEASE STAGING PER NKF</content>
<content></content>
<content>STAGE I & II GFR >= 60 NORMAL TO MILDLY DECREASED</content>
<content>STAGE III GFR 30-59 MODERATELY DECREASED</content>
<content>STAGE IV GFR 15-29 SEVERELY DECREASED</content>
<content>STAGE V GFR <15 VERY LITTLE GFR LEFT</content>
<content>ESRD GFR <15 ON DANCER OR CHOREOGRAPHER</content>
<content></content> ID Date Data Source [id number] 07/26/2020 08:23:00 AM EST [facility]) Name Value Range Interpretation Code Description Data Martina rce(s) Supporting Document(s) Prostate specific Ag [Mass/volume] in Serum or Plasma 0.52 ng/mL [facility] ([facility]) This assay was performed on the Siemens Dimension EXL using the B- Galactosidase/CPRG methodology and should not be compared interchangeably with other methods. The PSA should not be used alone as a screening test for the presence or absence of malignant disease. ID Date Data Source [id number] 07/26/2020 08:23:00 AM EST [facility] ([facility]) Name Value Range Interpretation Code Description Data Martina rce(s) Supporting Document(s) Leukocytes [#/volume] in Blood by Automated count 5.9 x10*3/UL 4.1-10 .9 [facility] ([facility]) Hemoglobin [Mass/volume] in Blood 15.0 g/dL 12.0-18.0 [facility] ([facility]) Erythrocytes [#/volume] in Blood by Automated count 4.81 x10*6/UL 4.2 0-6.30 [facility] ([facility]) MCH 31.1 pg 26.0-32.0 [facility] [facility] MCV 89.9 fL 80.0-97.0 [facility] ([facility]) Hematocrit [Volume Fraction] of Blood by Automated count 43.3 % 3 7.0-51.0 [facility] ([facility]) MCHC 34.6 g/dL 31.0-38.0 [facility] [facility] Platelets [#/volume] in Blood by Automated count 222 x10*3/UL 140-440 [facility] ([facility]) Erythrocyte distribution width [Ratio] by Automated count 14.6 % 11.6-13.7 [facility] ([facility]) MPV 9.9 FL 7.8-11.0 [facility] [facility] Mid % 5.4 % 1.7-9.3 [facility] [facility] Lymph % 28.8 % 10.0-58.5 [facility] [place] [facility] Neut % 65.8 % 37.0-92.0 [facility] [facility] Lymph # 1.7 x10*3/UL 0.6-4.1 [facility] ([facility]) Mid # 0.3 x10*3/UL 0.1-0.6 [facility] ([facility]) Neut # 3.9 x10*3/UL 2.0-7.8 [facility] ([facility]) ID Date Data Source [id number] 03/09/2020 10:08:00 AM EDT [facility] ([facility], ) Name Value Range Interpretation Code Description Data Martina rce(s) Supporting Document(s) PDFReport Laboratory test result MED[facility] ([facility], ) FVC-Pred 3.97 L MED[facility] ([facility]) FVC-Pre 2.44 L [facility] ([facility]) FVC-%Pred-Pre 61 L MED[facility] ([facility]) FVC-LLN 3.11 L [facility] ([facility]) Fev1-Pred 2.92 L [facility] ([facility]) Fev1-%Pred-Pre 48 L MED[facility] ([facility]) Fev1-Pre 1.40 L [facility] ([facility]) Fev1-LLN 2.19 L [facility] ([facility]) Fev6-Pred 3.73 L [facility] ([facility]) Fev6-%Pred-Pre 64 L [facility] ([facility]) Fev6-Pre 2.41 L [facility] ([facility]) Fev6-LLN 2.90 L [facility] ([facility]) Vqc5uqh-Jto 57 % [facility] ([facility]) Wvi4cig-Gcyy 74 % [facility] ([facility]) Bxn8ash-CNH 64 % [facility] ([facility]) Rrz3ngq-%Pred-Pre 77 % [facility] ([facility]) Dhh6alb-Tuzo 94 % [facility] ([facility]) Qxn7yje-%Pred-Pre 104 % [facility] ([facility]) Spn2dmp-Ick 99 % [facility] ([facility]) FEFMax-Pre 3.39 L/E/sec MED[facility] ([facility]) FEFMax-Pred 7.80 L/E/sec [facility] ([facility]) FEFMax-LLN 5.67 L/E/sec [facility] ([facility] ) FEFMax-%Pred-Pre 43 L/E/sec [facility] ([facility]) Zhc1265-Ncvq 2.25 L/E/sec [facility] ([facility]) Duo2019-Psd 0.67 L/E/sec [facility] ([facility]) Whq2680-BEI 0.78 L/E/sec [facility] ([facility]) Xus7952-%Pred-Pre 29 L/E/sec [facility] ([facility]) ExpTime-Pre 6.52 sec [facility] ([facility]) Fmn3itx9-Rzar 78 % [facility] ([facility]) Djd8kdw6-Tzz 58 % [facility] ([facility]) Cdt7vvs0-%Pred-Pre 74 % [facility] ([facility]) Duc3fph3-JYV 69 % [facility] ([facility]) ID Date Data Source [id number] 03/07/2020 09:42:00 AM EDT MED[facility] ([facility]) Name Value Range Interpretation Code Description Data Martina rce(s) Supporting Document(s) Surgical pathology study Laboratory test result [facility] ([facility]) FINAL DIAGNOSIS A - Colon, splenic flexure [...] - 1149 Signed JOSÉ MIGUEL SIMMONS MD 03/08/2020 115 ID Date Data Source [id number] 03/07/2020 09:42:00 AM EDT [facility] ([facility], ) Name Value Range Interpretation Code Description Data Martina rce(s) Supporting Document(s) Surgical pathology study Laboratory test result [facility] ([facility], ) FINAL DIAGNOSIS A - Colon, splenic [...] - 1149 Signed JOSÉ MIGUEL SIMMONS MD 03/08/2020 115 ID Date Data Source [id number] 03/02/2020 12:00:00 PM EDT [facility] Name Value Range Interpretation Code Description Data Martina rce(s) Supporting Document(s) SARS coronavirus 2 RNA [facility] This lab was ordered by [facility] and reported by [facility]. ID Date Data Source [id number] 01/17/2020 09:10:00 AM EDT [facility] ([facility]) Name Value Range Interpretation Code Description Data Martina rce(s) Supporting Document(s) Thyrotropin [Units/volume] in Serum or Plasma by Detec tion limit <= 0.05 mIU/L 1.56 uIU/mL 0.36-3.74 [facility] ([facility] ) ID Date Data Source [id number] 01/17/2020 09:10:00 AM EDT [facility] ([facility]) Name Value Range Interpretation Code Description Data Martina rce(s) Supporting Document(s) Triglyceride [Mass/volume] in Serum or Plasma 185 mg/dL 30-150 [facility] ([facility]) Cholesterol in HDL [Mass/volume] in Serum or Plasma 41 mg/dL 35-60 [facility] ([facility]) Cholesterol [Mass/volume] in Serum or Plasma 148 mg/dL 131-200 [facility] ([facility]) Cholesterol in LDL [Mass/volume] in Serum or Plasma by calcu lation 70 CALC 50-159 [facility] ([facility]) ID Date Data Source [id number] 01/17/2020 09:10:00 AM EDT [facility] ([facility]) Name Value Range Interpretation Code Description Data Martina rce(s) Supporting Document(s) Glucose [Mass/volume] in Serum or Plasma 113 mg/dL 74-99 [facility] ([facility]) 100-125 mg/dL PRE-DIABETES/FASTING >126 mg/dL DIABETES/FASTING Sodium [Moles/volume] in Serum or Plasma 143 meq/L 136-145 [facility] ([facility]) Urea nitrogen [Mass/volume] in Serum or Plasma 12 mg/dL 7-18 [facility] ([facility]) Creatinine 1.1 mg/dL 0.6-1.3 [facility] Calcium [Mass/volume] in Serum or Plasma 9.4 mg/dL 8.5-10.1 [facility] ([facility]) Potassium [Moles/volume] in Serum or Plasma 4.4 meq/L 3.5-5.1 [facility] ([facility]) Carbon dioxide, total [Moles/volume] in Serum or Plasma 30 meq/L 21 -32 [facility] ([facility]) Chloride [Moles/volume] in Serum or Plasma 104 meq/L 98-107 [facility] ([facility]) Alkaline phosphatase isoenzyme [Units/volume] in Serum or Pl asma 75 mg/dL 46-116 [facility] ([facility]) Aspartate aminotransferase [Enzymatic activity/volume] in Serum or Plasma 29 U/L 15-37 [facility] ([facility] ) Total Bilirubin 0.4 mg/dL 0.2-1.0 [facility] ([facility]) Albumin [Mass/volume] in Serum or Plasma 4.0 g/dL 3.4-5.0 [facility] ([facility]) Proteinase 3 Ab [Units/volume] in Serum 7.0 g/dL 6.4-8.2 [facility] ([facility]) Alanine aminotransferase [Enzymatic activity/volume] in Seru m or Plasma 35 U/L 12-78 [facility] ([facility]) A/G Ratio 1.33 CALC 1.00-1.90 [facility] Glomerular filtration rate/1.73 sq M pre dicted among blacks [Volume Rate/Area] in Serum or Plasma by Creatinine-based formula (MDRD) Laboratory test result [facility] <content>CHRONIC KIDNEY DISEASE STAGING PER NKF</content>
<content></content>
<content>STAGE I & II GFR >= 60 NORMAL TO MILDLY DECREASED</content>
<content>STAGE III GFR 30-59 MODERATELY DECREASED</content>
<content>STAGE IV GFR 15-29 SEVERELY DECREASED</content>
<content>STAGE V GFR <15 VERY LITTLE GFR LEFT</content>
<content>ESRD GFR <15 ON DANCER OR CHOREOGRAPHER</content>
<content></content> Glomerular filtration rate/1.73 sq M pre dicted among non-blacks [Volume Rate/Area] in Serum or Plasma by Creatinine-based formula (MDRD) Laboratory test result [facility] ([facility] ) ID Date Data Source [id number] 01/17/2020 09:10:00 AM EDT [facility] Name Value Range Interpretation Code Description Data Martina rce(s) Supporting Document(s) Hemoglobin [Mass/volume] in Blood 14.8 g/dL 12.0-18.0 [facility] ([facility]) Leukocytes [#/volume] in Blood by Automated count 6.5 x10*3/UL 4.1-10 .9 [facility] Erythrocytes [#/volume] in Blood by Automated count 4.88 x10*6/UL 4.2 0-6.30 [facility] MCHC 33.4 g/dL 31.0-38.0 [facility] Hematocrit [Volume Fraction] of Blood by Automated count 44.5 % 3 7.0-51.0 [facility] ([facility]) MCV 91.2 fL 80.0-97.0 [facility]) MCH 30.4 pg 26.0-32.0 [facility] ([facility]) Platelets [#/volume] in Blood by Automated count 169 x10*3/UL 140-440 [facility] Erythrocyte distribution width [Ratio] by Automated count 14.0 % 11.6-13.7 [facility] ([facility]) MPV 9.7 FL 7.8-11.0 [facility]) Mid % 5.5 % 1.7-9.3 [facility] ([facility]) Lymph % 20.3 % 10.0-58.5 [facility] ([facility]) Lymph # 1.3 x10*3/UL 0.6-4.1 [facility] ([facility]) Neut % 74.2 % 37.0-92.0 [facility]) Neut # 4.8 x10*3/UL 2.0-7.8 [facility] ([facility]) Mid # 0.4 x10*3/UL 0.1-0.6 [facility] ([facility]) ID Date Data Source [id number] 09/20/2019 02:16:00 PM EDT [facility] ([facility]) Name Value Range Interpretation Code Description Data Martina rce(s) Supporting Document(s) Appearance, Urine Laboratory test result [facility] Specific Watts Urine Auto 1.023 1.002-1.035 [facility] ([facility]) PH,Urine 5.0 units 5.0-9.0 [facility] Color, Urine Laboratory test result [facility] NT ([facility]) Ketone, Urine Auto Laboratory test result [facility] ([facility]) Glucose, Urine (Ua) Auto Laboratory test result [facility] Protein, Urine Auto Laboratory test result [facility] ([facility]) Bilirubin, Urine Auto Laboratory test result [facility] Urobilinogen, Urine Auto 0.2 mg/dL 0.0-2.0 [facility] Nitrite, Urine Auto Laboratory test result [facility] ([facility]) Blood, Urine Blood Laboratory test result [facility] Leukocyte Esterase, Urine Auto Laboratory test result [facility] WBC, Urine Auto 7 /HPF 0-3 [facility] ([facility]) Bacteria, Urine Auto Laboratory test result [facility] ([facility]) RBC, Urine Auto 2 /HPF 0-3 [facility] ([facility]) Squamous Epithelial Cell Ur AU 1 /HPF 0-6 [facility] Hyaline Cast, Urine Auto 13 /LPF 0-1 [facility] T ([facility]) Mucus, Urine Laboratory test result [facility] ID Date Data Source [id number] 09/20/2019 01:30:00 PM EDT [facility] ([facility]) Name Value Range Interpretation Code Description Data Martina rce(s) Supporting Document(s) Lipoprotein lipase [Enzymatic activity/volume] in Serum or P lasma 169 U/L 73-393 [facility] ID Date Data Source [id number] 09/20/2019 01:30:00 PM EDT [facility] ([facility]) Name Value Range Interpretation Code Description Data Martina rce(s) Supporting Document(s) Blood Urea Nitrogen 13 mg/dL 7-18 [facility] ([facility]) Glucose, Fasting 134 mg/dL 70-100 [facility] ([facility]) Creatinine For GFR 1.43 mg/dL 0.70-1.30 [facility] ([facility]) Sodium Level 137 meq/L 136-145 [facility] ([facility]) Glomerular Filtration Rate 52.4 [facility] ([facility]) <content>Units are mL/min/1.73 m2</content>
<content></content>
<content>Chronic Kidney Disease Staging per NKF:</content>
<content></content>
<content>Stage I & II GFR >=60 Normal to Mildly Decreased</content>
<content>Stage III GFR 30-59 Moderately Decreased</content>
<content>Stage IV GFR 15-29 Severely Decreased</content>
<content>Stage V GFR <15 Very Little GFR Left</content>
<content>ESRD GFR <15 on DANCER OR CHOREOGRAPHER</content>
<content></content> Potassium Serum 4.3 meq/L 3.5-5.1 [facility] ([facility]) Anion Gap 6 meq/L 8-16 [facility] [facility]) Carbon Dioxide Level 28 meq/L 21-32 [facility] ([facility]) Chloride Level 103 meq/L 98-107 [facility] ([facility]) Calcium Level 9.7 mg/dL 8.8-10.2 [facility] ([facility]) ID Date Data Source [id number] 09/20/2019 01:30:00 PM EDT [facility] ([facility]) Name Value Range Interpretation Code Description Data Martina rce(s) Supporting Document(s) Alt/SGPT 34 U/L 12-78 [facility] Ast/Sgot 35 U/L 7-37 [facility] [facility]) Bilirubin,Total 0.6 mg/dL 0.2-1.0 [facility] ([facility]) Alkaline Phosphatase 77 U/L 45-117 [facility] ([facility]) Total Protein 7.3 GM/DL 6.4-8.2 [facility] ([facility]) Bilirubin,Direct 0.2 mg/dL 0.0-0.2 [facility] ([facility]) Albumin 4.3 GM/DL 3.2-5.2 [facility] Albumin/Globulin Ratio 1.43 1.00-1.93 [facility] ([facility]) ID Date Data Source [id number] 09/20/2019 01:30:00 PM EDT [facility] ([facility]) Name Value Range Interpretation Code Description Data Martina rce(s) Supporting Document(s) White Blood Count 7.7 10 4.0-10.0 [facility] ([facility]) Hemoglobin 15.3 g/dL 13.5-17.5 [facility] ([facility]) Red Blood Count 4.88 10 4.30-6.10 [facility] ([facility]) Mean Corpuscular Hemoglobin 31.4 pg 27.0-33.0 ME DENT ([facility]) Hematocrit 47.1 % 42.0-52.0 [facility] ([facility]) Mean Corpuscular Volume 96.5 fl 80.0-96.0 [facility] ([facility]) Mean Corpuscular HGB Conc 32.5 g/dL 32.0-36.5 [facility] NT ([facility]) Red Cell Distribution Width 14.6 % 11.5-14.5 [facility] ([facility]) Platelet Count, Automated 174 10 150-450 [facility] NT ([facility]) Lymph % 18.0 % 24.0-44.0 [facility] Neutrophils % 70.4 % 36.0-66.0 [facility] ([facility]) [place] % 9.2 % 0.0-5.0 [facility] Immature Granulocyte % 0.3 % 0-3.0 [facility] ([facility]) Baso % 0.7 % 0.0-1.0 [facility] Eos % 1.4 % 0.0-3.0 [facility] Lymph # 1.4 10 1.5-5.0 [facility] [facility] Nucleated Red Blood Cell % 0.0 % 0-0 [facility] ([facility]) Neutrophils # 5.4 10 1.5-8.5 [facility] ([facility]) Eos # 0.1 10 0.0-0.5 [facility] Baso # 0.1 10 0.0-0.2 [facility] [place] # 0.7 10 0.0-0.8 [facility] [facility] ID Date Data Source [id number] 09/08/2019 08:35:00 AM EDT [facility] ([facility] Name Value Range Interpretation Code Description Data Martina rce(s) Supporting Document(s) Carotid Ultrasound Bilateral <pending> M [facility] ([facility]) Arterial Ultrasound Lower Extremity Left <pending> [facility] ([facility]) ID Date Data Source [id number] 08/03/2019 07:55:00 AM EST [facility] ([facility]) Name Value Range Interpretation Code Description Data Martina rce(s) Supporting Document(s) Thyrotropin [Units/volume] in Serum or Plasma by Detec tion limit <= 0.05 mIU/L 2.67 uIU/mL 0.36-3.74 [facility] ([facility] ) ID Date Data Source [id number] 08/03/2019 07:55:00 AM EST [facility] ([facility]) Name Value Range Interpretation Code Description Data Martnia rce(s) Supporting Document(s) Cholesterol [Mass/volume] in Serum or Plasma 161 mg/dL 131-200 [facility] ([facility]) Cholesterol in LDL [Mass/volume] in Serum or Plasma by calcu lation 81 CALC 50-159 [facility] ([facility]) Triglyceride [Mass/volume] in Serum or Plasma 150 mg/dL 30-150 [facility] ([facility]) Cholesterol in HDL [Mass/volume] in Serum or Plasma 50 mg/dL 35-60 [facility] ([facility]) ID Date Data Source [id number] 08/03/2019 07:55:00 AM EST [facility] ([facility]) Name Value Range Interpretation Code Description Data Martina rce(s) Supporting Document(s) Glucose [Mass/volume] in Serum or Plasma 117 mg/dL 74-99 [facility] ([facility]) 100-125 mg/dL PRE-DIABETES/FASTING >126 mg/dL DIABETES/FASTING Urea nitrogen [Mass/volume] in Serum or Plasma 9 mg/dL 7-18 [facility] ([facility]) Creatinine 1.1 mg/dL 0.6-1.3 [facility] ([facility]) Sodium [Moles/volume] in Serum or Plasma 141 meq/L 136-145 [facility] ([facility]) Potassium [Moles/volume] in Serum or Plasma 4.6 meq/L 3.5-5.1 [facility] ([facility]) Chloride [Moles/volume] in Serum or Plasma 103 meq/L 98-107 [facility] ([facility]) Carbon dioxide, total [Moles/volume] in Serum or Plasma 28 meq/L 21 -32 [facility] ([facility]) Calcium [Mass/volume] in Serum or Plasma 9.4 mg/dL 8.5-10.1 [facility] ([facility]) Alkaline phosphatase isoenzyme [Units/volume] in Serum or Pl asma 72 mg/dL 46-116 [facility] ([facility]) Total Bilirubin 0.5 mg/dL 0.2-1.0 [facility] ([facility]) Alanine aminotransferase [Enzymatic activity/volume] in Seru m or Plasma 51 U/L 12-78 [facility] ([facility]) Aspartate aminotransferase [Enzymatic activity/volume] in Serum or Plasma 55 U/L 15-37 [facility] ([facility] ) Proteinase 3 Ab [Units/volume] in Serum 7.0 g/dL 6.4-8.2 [facility] ([facility]) Albumin [Mass/volume] in Serum or Plasma 4.1 g/dL 3.4-5.0 [facility] ([facility]) A/G Ratio 1.41 CALC 1.00-1.90 [facility]) Glomerular filtration rate/1.73 sq M pre dicted among non-blacks [Volume Rate/Area] in Serum or Plasma by Creatinine-based formula (MDRD) Laboratory test result [facility] Glomerular filtration rate/1.73 sq M pre dicted among blacks [Volume Rate/Area] in Serum or Plasma by Creatinine-based formula (MDRD) Laboratory test result [facility] <content>CHRONIC KIDNEY DISEASE STAGING PER NKF</content>
<content></content>
<content>STAGE I & II GFR >= 60 NORMAL TO MILDLY DECREASED</content>
<content>STAGE III GFR 30-59 MODERATELY DECREASED</content>
<content>STAGE IV GFR 15-29 SEVERELY DECREASED</content>
<content>STAGE V GFR <15 VERY LITTLE GFR LEFT</content>
<content>ESRD GFR <15 ON DANCER OR CHOREOGRAPHER</content>
<content></content> ID Date Data Source [id number] 08/03/2019 07:55:00 AM EST [facility] Name Value Range Interpretation Code Description Data Martina rce(s) Supporting Document(s) Leukocytes [#/volume] in Blood by Automated count 5.8 x10*3/UL 4.1-10 .9 [facility] Erythrocytes [#/volume] in Blood by Automated count 4.81 x10*6/UL 4.2 0-6.30 [facility] Hemoglobin [Mass/volume] in Blood 14.5 g/dL 12.0-18.0 [facility] MCV 91.4 fL 80.0-97.0 [facility] ([facility]) Hematocrit [Volume Fraction] of Blood by Automated count 44.0 % 3 7.0-51.0 [facility] ([facility]) MCH 30.1 pg 26.0-32.0 [facility] ([facility]) MCHC 32.9 g/dL 31.0-38.0 [facility] ([facility]) Erythrocyte distribution width [Ratio] by Automated count 14.0 % 11.6-13.7 [facility] ([facility]) Platelets [#/volume] in Blood by Automated count 157 x10*3/UL 140-440 [facility] ([facility]) MPV 10.4 FL 7.8-11.0 [facility] [facility]) Lymph % 21.9 % 10.0-58.5 [facility] [facility]) Mid % 4.8 % 1.7-9.3 [facility] [facility] Neut % 73.3 % 37.0-92.0 [facility] [place] [facility] Lymph # 1.2 x10*3/UL 0.6-4.1 [facility] ([facility]) Mid # 0.4 x10*3/UL 0.1-0.6 [facility] ([facility]) Neut # 4.2 x10*3/UL 2.0-7.8 [facility] ([facility]) Procedure Social History Code Duration Value Status Description Data Source(s ) Smoking 03/09/2020 12:00:00 AM EDT Patient is a former smoker completed Patient is a former smoker [facility] ([facility], ) 09/08/2019 12:00:00 AM EDT Patient is a former smoker completed Patient is a former smoker [facility] ([facility]) Vital Signs ID Date Data Source UNK Name Value Range Interpretation Code Description Data Source(s) Body mass index (BMI) [Ratio] 29.7 kg/m2 29.7 k g/m2 [facility] ([facility]) Body weight 184.00 [lb_av] 184.00 [lb_av] [facility] T ([facility]) Body height 66 [in_i] 66 [in_i] [facility] ([facility]) 5'6" Heart rate 64 /min 64 /min [facility] ([facility]) Diastolic blood pressure 76 mm[Hg] 76 mm[Hg] [facility] ([facility]) Systolic blood pressure 126 mm[Hg] 126 mm[Hg] M [facility] ([facility]) Body surface area Derived from formula 1.97 m2 1.97 m2 [facility] ([facility], ) Body weight 84.823 kg 84.823 kg [facility] ([facility]) [place] body weight 148 [lb_av] 148 [lb_av] [facility] T ([facility]) Body mass index (BMI) [Ratio] 29.3 kg/m2 29.3 k g/m2 [facility] ([facility]) Body weight 187.00 [lb_av] 187.00 [lb_av] [facility] Body height 67 [in_i] 67 [in_i] [facility] ([facility]) 5'7" Body mass index (BMI) [Ratio] 28.8 kg/m2 28.8 k g/m2 [facility] ([facility]) Body height 67 [in_i] 67 [in_i] [facility] ([facility]) 5'7" Body weight 184.00 [lb_av] 184.00 [lb_av] [facility] Body temperature 98.7 [degF] 98.7 [degF] [facility] ([facility]) Oxygen saturation in Arterial blood by Pulse oximetry 99 % 99 % [facility] ([facility]) Respiratory rate 16 /min 16 /min [facility] ( [facility]) Heart rate 78 /min 78 /min [facility] ([facility], [facility]) Diastolic blood pressure 82 mm[Hg] 82 mm[Hg] [facility] ([facility]) Systolic blood pressure 140 mm[Hg] 140 mm[Hg] [facility] ([facility], [facility]) Body surface area Derived from formula 1.91 m2 1.91 m2 [facility] ([facility]) Body weight 79.380 kg 79.380 kg [facility] ([facility]) [place] body weight 148 [lb_av] 148 [lb_av] [facility] Body mass index (BMI) [Ratio] 27.4 kg/m2 27.4 k g/m2 [facility] ([facility]) Body weight 175.00 [lb_av] 175.00 [lb_av] [facility] T ([facility], ) Body height 67 [in_i] 67 [in_i] [facility] ([facility]) 5'7" Oxygen saturation in Arterial blood by Pulse oximetry 96 % 96 % [facility] ([facility]) Room Air Heart rate 90 /min 90 /min [facility] ([facility]) Diastolic blood pressure 78 mm[Hg] 78 mm[Hg] [facility] ([facility]) Systolic blood pressure 130 mm[Hg] 130 mm[Hg] [facility] ([facility]) Body mass index (BMI) [Ratio] 28.4 kg/m2 28.4 k g/m2 [facility] ([facility]) Oxygen saturation in Arterial blood by Pulse oximetry 94 % 94 % [facility] ([facility]) Body weight 176.00 [lb_av] 176.00 [lb_av] [facility] T ([facility]) Body height 66 [in_i] 66 [in_i] [facility] ([facility]) 5'6" Heart rate 78 /min 78 /min [facility] ([facility]) Diastolic blood pressure 76 mm[Hg] 76 mm[Hg] [facility] ([facility]) Systolic blood pressure 130 mm[Hg] 130 mm[Hg] [facility] ([facility]) Body mass index (BMI) [Ratio] 30.0 kg/m2 30.0 k g/m2 [facility] ([facility]) Oxygen saturation in Arterial blood by Pulse oximetry 97 % 97 % [facility] ([facility]) Body weight 186.00 [lb_av] 186.00 [lb_av] [facility] T ([facility]) Body height 66 [in_i] 66 [in_i] [facility] ([facility]) 5'6" Heart rate 80 /min 80 /min [facility] ([facility]) Diastolic blood pressure 84 mm[Hg] 84 mm[Hg] [facility] ([facility]) Systolic blood pressure 120 mm[Hg] 120 mm[Hg] [facility] ([facility]) Body surface area 1.96 m2 1.96 m2 [facility] ([facility] Body mass index (BMI) [Ratio] 29.0 kg/m2 29.0 k g/m2 [facility] ([facility]) Body height 67 [in_i] 67 [in_i] [facility] ([facility] 5'7" Body weight 185.00 [lb_av] 185.00 [lb_av] MED[facility] T ([facility]) Body mass index (BMI) [Ratio] 29.8 kg/m2 29.8 k g/m2 [facility] ([facility] Body weight 86.184 kg 86.184 kg [facility] ([facility] Body weight 190.00 [lb_av] 190.00 [lb_av] [facility] T ([facility]) Body height 67 [in_i] 67 [in_i] [facility] ([facility] 5'7" Diastolic blood pressure 82 mm[Hg] 82 mm[Hg] [facility] ([facility]) Systolic blood pressure 140 mm[Hg] 140 mm[Hg] [facility] Body weight 85.730 kg 85.730 kg [facility] ([facility], ) Body mass index (BMI) [Ratio] 29.6 kg/m2 29.6 k g/m2 [facility] ([facility]) Body weight 189.00 [lb_av] 189.00 [lb_av] [facility] T ([facility]) Body height 67 [in_i] 67 [in_i] [facility] ([facility]) 5'7" Diastolic blood pressure 72 mm[Hg] 72 mm[Hg] [facility] ([facility]) Systolic blood pressure 102 mm[Hg] 102 mm[Hg] M EDENT ([facility]) Body mass index (BMI) [Ratio] 30.5 kg/m2 30.5 k g/m2 [facility] ([facility]) Body weight 189.00 [lb_av] 189.00 [lb_av] MED[facility] T ([facility]) Body height 66 [in_i] 66 [in_i] [facility] [facility] 5'6" Heart rate 78 /min 78 /min [facility] ([facility]) Diastolic blood pressure 80 mm[Hg] 80 mm[Hg] [facility]) Systolic blood pressure 136 mm[Hg] 136 mm[Hg] [facility] Body weight 85.277 kg 85.277 kg [facility] ([facility], ) Body mass index (BMI) [Ratio] 29.4 kg/m2 29.4 k g/m2 [facility] ([facility], ) Body weight 188.00 [lb_av] 188.00 [lb_av] [facility] ([facility], ) Body height 67 [in_i] 67 [in_i] [facility] ([facility], ) 5'7" Oxygen saturation in Arterial blood by Pulse oximetry 95 % 95 % [facility] ([facility], ) Heart rate 82 /min 82 /min [facility] ([facility], ) Diastolic blood pressure 80 mm[Hg] 80 mm[Hg] [facility] ([facility], ) Systolic blood pressure 130 mm[Hg] 130 mm[Hg] [facility] ([facility], )
[2020-08-10] MEDS: NORCO, ANEXSIA 5/325MG TABLET (HYDROcodone/ACETAMINOPHEN) PO PRN ×2 (12:18→19:58)
[2020-08-10] MEDS ORDERED: BUPIVACAINE/EPIN 0.25% 30 ML VIAL As Ordered ONE (12:25)
[2020-08-10] MEDS ORDERED: fentaNYL 250 MCG/5 ML INJECTION (J3010) As Ordered ONE (12:29)
[2020-08-10] MEDS ORDERED: MIDAZOLAM INJ 2MG/2ML VIAL (J2250 PER 1MG) As Ordered ONE (12:30)
[2020-08-10] MEDS ORDERED: propofoL 200 MG/20 ML VIAL As Ordered ONE (12:31)
[2020-08-10] MEDS ORDERED: LIDOCAINE 2% 100MG/5ML SDV (FOR ANES.) As Ordered ONE (12:32)
[2020-08-10] MEDS ORDERED: ROCURONIUM BROMIDE 50 MG/5 ML VIAL As Ordered ONE (12:32)
[2020-08-10] MEDS ORDERED: SUCCINYLCHOLINE 100 MG/5 ML SYRINGE (J0330) As Ordered ONE (12:32)
[2020-08-10] MEDS ORDERED: dexameTHASONE 4 MG/ML 1ML VIAL (J1100 PER 1MG) As Ordered ONE (12:32)
[2020-08-10] MEDS ORDERED: PHENYLEPHRINE 10MG/ML 1ML VIAL (J2370 PER 1) As Ordered ONE ×2 (13:42→14:06)
[2020-08-10] MEDS ORDERED: ESMOLOL INJ 100MG/10ML VIAL As Ordered ONE (14:06)
[2020-08-10] MEDS ORDERED: ASPI81TA26 PO (14:51)
[2020-08-10] MEDS ORDERED: fentaNYL 100 MCG/2 ML INJECTION (J3010) IV PRN (15:15)
[2020-08-10] MEDS ORDERED: LR 1,000 ML IV SCH (15:15)
[2020-08-10] MEDS ORDERED: oxyCODONE 5MG TAB PO PRN (15:15)
--- NOTE | 2020-08-10 16:25 | HPE ---
HISTORY AND PHYSICAL DATE OF ADMISSION: 08/10/2020 CHIEF COMPLAINT: Abdominal pain. HISTORY OF PRESENT ILLNESS: The patient is a 69-year-old male who presents with right lower quadrant pain that started on Friday of this week. He did have a little but of nausea and vomiting on Friday, but nothing since then. No fevers at home. He came into the Emergency Room this morning due to the pain being persistent and not improving. He is having significant pains now. CT in the Emergency Room did show acute appendicitis with a couple air bubbles next to it. No signs of any abscess formation or fluid collections, but there was a little bit of fluid inside of the pelvis. The patient denies any recent travel or trauma. Prior to me getting to see him, he also did test positive for COVID. He denies any symptoms related to that. No fevers or chills at home. No shortness of breath or cough. No recent sick contacts. He does live at home with his and it sounds like his granddaughter as well. PAST MEDICAL HISTORY: The patient's past surgical history is significant for: 1. Atherosclerotic heart disease. 2. Peripheral vascular disease. 3. Chronic obstructive pulmonary disease. 4. Hypothyroidism. 5. Hypertension. 6. Hyperlipidemia. PAST SURGICAL HISTORY: The patient's past surgical history is significant for: 1. Renal artery surgery. 2. Cardiac stents. 3. Peripheral vascular stents. 4. Denies any other surgery to his abdomen other than the renal artery surgery. ALLERGIES: None. HOME MEDICATIONS: Please see Med Rec. They do include Plavix. SOCIAL HISTORY: He denies drug, alcohol or tobacco abuse. FAMILY HISTORY: Noncontributory. REVIEW OF SYSTEMS: Pertinent positives and negatives as stated in the HPI. PHYSICAL EXAMINATION: GENERAL APPEARANCE: The patient is alert and oriented x3, sounds to be having significant pains. VITAL SIGNS: Temperature 102.8, pulse 122, respirations 20, blood pressure 139/87, pulse oximetry 97% on 2 liters nasal cannula. HEENT: Pupils are equal, round and reactive to light and accommodation. HEART: S1, S2, tachycardic. LUNGS: Clear to auscultation bilaterally. ABDOMEN: Soft, distended, tender in the right lower quadrant with localized guarding. EXTREMITIES: Bilateral lower extremity edema. LABORATORY STUDIES: White count 8.9, hemoglobin 16.4, platelet count 226. INR 0.97, PT 13.1, potassium 5.2, creatinine 1.47, lactic acid 4.3, with a follow up 4 hours later at 2.4. IMAGING: CT abdomen and pelvis shows appendicitis with considerable periappendiceal reaction, small amount of right pericolic gutter fluid with a couple bubbles of free intraperitoneal air, mildly hypertrophy, mesenteric lymph nodes. No abscess is identified. Chest x-ray was negative for acute disease. ASSESSMENT AND PLAN: The patient is a 69-year-old male with what appears to be a perforated appendix on CT. Also he is COVID positive. RECOMMENDATIONS: 1. Treat with IV fluids, antibiotics and n.p.o. 2. He will be brought straight to the Operating Room as soon as a room is available for urgent laparoscopic appendectomy. 3. Postoperatively he will be kept on the COVID floor with a drain in place. 4. I will have the Hospitalist consulted to evaluate him and monitor him from the COVID standpoint in case that his symptoms get exacerbated after anesthesia and he requires a prolonged stay for that. I also will have them contact his family and arrange for anything that is needed as well.
[2020-08-10] MEDS: PIPERACILLIN/TAZOBACTAM SOD 3.375 GM in D5W MINI-BAG PLUS 50 ML IV SCH ×2 (16:28→21:13)
[2020-08-10] MEDS ORDERED: PIPERACILLIN/TAZOBACTAM SOD 4.5 GM in D5W MINI-BAG PLUS 50 ML IV SCH (16:30)
--- NOTE | 2020-08-10 17:13 | HPEPDOC ---
[facility] Medical History & Physical Date of Admission Aug 10, 2020 Date of Service: Aug 10, 2020 History and Physical CHIEF COMPLAINT: Abdominal pain HISTORY OF PRESENT ILLNESS: 69-year-old male history of COPD, CAD, PAD, HTN, presents to the emergency department with abdominal pain found to have a perforated appendix taken directly to the OR for appendectomy and washout. Patient endorses that he was feeling well up until Friday during [place]. Starting on Friday he started having some abdominal discomfort on Friday he developed some nausea and vomiting but no fevers or chills at home. This morning he reports to me that he had severe periumbilical abdominal pain rated 10 out of 10 that woke him up at 3 in the morning and slowly migrated to his right lower quadrant which prompted him to come to the hospital. In the emergency department CT of his abdomen confirms acute appendicitis with air bubbles patient was evaluated by Dr. Lock and was taken for urgent laparoscopic appendectomy for ruptured appendix. Incidentally patient was also found to be Covid positive area I saw the patient on the Covid unit postoperatively this afternoon. At this time patient was comfortable and answered all my questions appropriately. He tells me that right now he does not feel a chest pain or shortness of breath. He says he just has some faint abdominal pain but he rates it as 90% improved from prior. I spoke to his Sunshine per his request and updated her on his condition. He did not know he was Covid positive as he did not have any symptoms of Covid he denies any fevers or chills denied any shortness of breath or diarrhea he denies a cough. It's unclear if this is an active Covid infection or one that has a lready resolved but remains positive on PCR. His is also asymptomatic. PAST MEDICAL/SURGICAL HISTORY: COPD not requiring home oxygen Coronary artery disease with stenting and on dual antiplatelet therapy in 2012 Peripheral vascular disease status post left femoral endarterectomy October 2018 History of laryngeal cancer follows with Dr. Nunez Hypertension Hypothyroidism Hyper lipidemia Peripheral vascular stents Renal artery surgery SOCIAL HISTORY: Endorses drinking 6 beers daily. Endorses a history of alcohol withdrawal in the past but no intubation needed. Last drink was 08/09/2020 Quit smoking tobacco 9 years ago. Denies illicit drug use FAMILY HISTORY: Reviewed and none contributory to this admission ALLERGIES: Please see below. REVIEW OF SYSTEMS: 10 point review of systems complete all negative otherwise stated in HPI HOME MEDICATIONS: Please see below. PHYSICAL EXAMINATION: Constitutional: Awake and alert, in no apparent distress ENT: Sclera are clear. Respiratory: Lungs CTA bilaterally. No respiratory distress. No use of accessory muscles. Cardiovascular: RRR S1 and S2 are normal, no murmur Gastrointestinal: Abdomen is soft, non distended, mildly tender tender but this is to be expected postoperatively, BS present. Left sided drain in place Musculoskeletal: Trace lower extremity edema good upper and lower extremity strength Neurologic: No focal neurological deficit. Mental Status: A&O x3, normal affect Skin: Warm, dry LABORATORY DATA: See below. IMAGING: See chart MICROBIOLOGY: Please see below. ASSESSMENT/PLAN 69-year-old male history of COPD, CAD, PAD, HTN, presents to the emergency department with abdominal pain found to have a perforated appendix taken directly to the OR for appendectomy and washout. Patient was also found to be COVID19 positive incidentally and I was consulted to help manage the patient from a Covid standpoint should his symptoms worsen postoperatively. # Sepsis secondary to perforated appendix s/p appendectomy and washout 08/10/20. Dr Jeong is managing this. Currently on Abx, IVFs, NPO. Pain control # Covid 19 infection: As of right now he appears asymptomatic from this infection he was found incidentally. Patient denies shortness of breath. He does have a fever but this is better explained by his sepsis. We will monitor the patient's inflammatory markers and trend them as well as evaluate his oxygen r equirement over the next 24 hours. I spoke with his Sunshine at home who is asymptomatic also and asked her to quarantine per CDC guidelines and get tested. As of right now there is no need for steroids,rimdasivir. # COPD: Not in exacerbation on exam. Continue home inhalers. He uses Advair and Ventolin for rescue. # Hypertension: Patient was hypotensive postoperatively hold all antihypertensive medications for now. Monitor and titrate as needed. IVFs # Alcohol abuse: Drinks daily last drink every 2020. Has had a history of alcohol withdrawal in the past. Monitor for signs of alcohol withdrawal. CIWA protocol. MVN, Folate, thiamine once tolerating PO. # CAD s/p stent per patient: Continue dual antiplatelet therapy and statin # Hypothyroidism: resume Synthroid. # Hyperlipidemia: Resume statin Thank you for involving me in the care of this patient I will continue to follow the patient along with you A Yousef Hospitalist Vital Signs Vital Signs Date Time Temp Pulse Resp B/P (MAP) Pulse Ox O2 Delivery O2 Flow Rate FiO2 08/10/20 16:44 2.0 08/10/20 16:42 92 Nasal Cannula 08/10/20 16:41 104/72 (83) 08/10/20 16:27 99.3 109 20 Laboratory Data Labs 24H Laboratory Tests 2 08/10/20 07:54: Immature Granulocyte % (Auto) 0.3, Neutrophils (%) (Auto) 83.6H, Lymphocytes (%) (Auto) 11.9L, Monocytes (%) (Auto) 2.9, Eosinophils (%) (Auto) 0.9, Basophils (%) (Auto) 0.4, Neutrophils # (Auto) 7.5, Lymphocytes # (Auto) 1.1L, Monocytes # (Auto) 0.3, Eosinophils # (Auto) 0.1, Basophils # (Auto) 0.0, Nucleated Red Blood Cells % (auto) 0.0, Lactic Acid Level 4.3*H 08/10/20 08:23: Prothrombin Time 13.1, Prothromb Time International Ratio 0.97, Activated Partial Thromboplast Time 27.0, Anion Gap 11, Glomerular Filtration Rate 50.6, Calcium Level 9.2, Total Bilirubin 0.9, Direct Bilirubin 0.3H, Aspartate Amino Transf (AST/SGOT) 20, Alanine Aminotransferase (ALT/SGPT) 25, Alkaline Phosphatase 78, Total Creatine Kinase 97, Creatine Kinase MB 1.1, Creatine Kinase MB Relative Index 1.13, Troponin I 0.02, Total Protein 7.3, Albumin 4.0, Albumin/Globulin Ratio 1.2, Lipase 106 08/10/20 09:24: Coronavirus (COVID-19)(PCR) POSITIVEA, Influenza Type A (RT-PCR) NEGATIVE, Influenza Type B (RT-PCR) NEGATIVE, Respiratory Syncytial Virus (PCR) NEGATIVE 08/10/20 12:24: Lactic Acid Followup at 4 Hours 2.4*H CBC/BMP Laboratory Tests 08/10/20 07:54 08/10/20 08:23 Home Medications Scheduled Aspirin (Aspirin EC) 81 Mg Tablet., 81 MG PO DAILY Atorvastatin Calcium (Atorvastatin Calcium) 80 Mg Tablet, 80 MG PO QHS Clopidogrel Bisulfate (Clopidogrel) 75 Mg Tablet, DAILY PT STATES "TAKES AT NOON" Fenofibrate Nanocrystallized (Fenofibrate) 145 Mg Tablet, 145 MG PO DAILY Fluticasone Propion/Salmeterol (Advair Hfa 115-21 Mcg Inhaler) 12 Gm Hfa.aer.ad, 12 GM INH BID Fluticasone Propionate (Fluticasone Propionate) 16 Gm [place].susp, 2 SPRAY INH DAILY Levothyroxine Sodium (Levothyroxine Sodium) 50 Mcg Tablet, 50 MCG PO DAILY Magnesium Oxide (Magnesium) 400 Mg Capsule, 400 MG PO DAILY Metoprolol Succinate (Metoprolol Succinate) 25 Mg Tab.er.24h, 25 MG PO DAILY Pantoprazole Sodium (Pantoprazole Sodium) 40 Mg Tablet.dr, 40 MG PO DAILY Scheduled PRN Alprazolam (Alprazolam) 0.5 Mg Tablet, QHS PRN for ANXIETY/AGITATION Benzonatate (Benzonatate) 100 Mg Capsule, 100 MG PO TID PRN for COUGH Allergies Coded Allergies: No Known Allergies (Unverified , 09/20/19) A-FIB/CHADSVASC A-FIB History Current/History of A-Fib/PAF?: No PITER GAGNON MD Aug 10, 2020 17:13
[2020-08-10 17:32] LABS: FIBRINOGEN 565 MG/DL (221-452)
[2020-08-10 17:43] LABS: C REACTIVE PROTEIN QUANTITATIV 14.4 MG/DL (0.00-0.30)
[2020-08-10 17:58] LABS: D-DIMER QUANT > 4000 ng/ml (<500)
[2020-08-10] MEDS: ATORVASTATIN 20 MG TAB PO SCH (19:57)
[2020-08-10] MEDS: ADVAIR HFA 115/21MCG INHALER INH SCH (20:29)
[2020-08-10] MEDS ORDERED: LORazepam 2 MG TAB PO PRN (20:30)
[2020-08-10] MEDS: THIAMINE 100 MG TAB PO SCH (21:13)
[2020-08-11] VITALS (12 sets, daily range): BP systolic 112–143; BP diastolic 58–77; O2SAT 92–97
[2020-08-11] MEDS: KETOROLAC 30 MG/ML 1ML VIAL IV PRN (01:04)
[2020-08-11] MEDS: PIPERACILLIN/TAZOBACTAM SOD 3.375 GM in D5W MINI-BAG PLUS 50 ML IV SCH ×4 (02:59→21:14)
[2020-08-11] MEDS: NORCO, ANEXSIA 5/325MG TABLET (HYDROcodone/ACETAMINOPHEN) PO PRN ×3 (02:59→21:13)
[2020-08-11] MEDS: LEVOTHYROXINE 50MCG TABLET (0.05MG) PO SCH (05:01)
[2020-08-11 06:49] LABS: HEMATOCRIT 38.4 % (42.0-52.0); MEAN CORPUSCULAR HEMOGLOBIN 30.9 pg (27.0-33.0); MEAN CORPUSCULAR VOLUME 96.5 fl (80.0-96.0); PLATELET COUNT, AUTOMATED 138 10^3/uL (150-450); RED BLOOD COUNT 3.98 10^6/uL (4.30-6.10); WHITE BLOOD COUNT 9.4 10^3/uL (4.0-10.0)
[2020-08-11 06:51] LABS: HEMOGLOBIN 12.3 g/dl (13.5-17.5)
[2020-08-11] MEDS: ADVAIR HFA 115/21MCG INHALER INH SCH ×2 (07:09→20:58)
[2020-08-11 07:13] LABS: ALBUMIN 2.7 GM/DL (3.2-5.2); ALT/SGPT 21 U/L (12-78); BILIRUBIN,TOTAL 0.5 MG/DL (0.2-1.0); BLOOD UREA NITROGEN 14 MG/DL (7-18); CALCIUM LEVEL 7.9 MG/DL (8.8-10.2); CARBON DIOXIDE LEVEL 26 MEQ/L (21-32); CHLORIDE LEVEL 107 MEQ/L (98-107); CREATININE FOR GFR 1.22 MG/DL (0.70-1.30); GLOMERULAR FILTRATION RATE > 60.0 (>49); GLUCOSE, FASTING 159 MG/DL (70-100); POTASSIUM SERUM 4.2 MEQ/L (3.5-5.1); SODIUM LEVEL 141 MEQ/L (136-145); TOTAL PROTEIN 5.4 GM/DL (6.4-8.2)
--- NOTE | 2020-08-11 08:34 | RO ---
OPERATIVE NOTE DATE OF OPERATION: 08/10/2020 PREOPERATIVE DIAGNOSIS: Perforated appendix. POSTOPERATIVE DIAGNOSIS: Perforated appendix. PROCEDURE: Laparoscopic appendectomy with washout of abdomen. SURGEON: Checo Lock DO WATER GAS OPERATOR: None. ANESTHESIA: General. EBL: 5. COMPLICATIONS: None. INDICATIONS FOR PROCEDURE: The patient is a 69-year-old male who presents with right lower quadrant pain, found to have perforated appendix on CT. Just prior to coming to the operating room he was starting to show signs of sepsis. He was a little hypotensive and having some fevers over 102. Recommendation was to take him straight to the operating room for urgent laparoscopic appendectomy, abdominal washout. Risks and benefits of the procedure not limited to but including bleeding, infection, hernia formation, damage to surrounding structures, need for further surgery was discussed in detail with the patient, informed consent was obtained, procedure was planned. DESCRIPTION OF PROCEDURE: The patient was brought back to operating room 6. After sufficient sedation the abdomen was sterilely prepped and draped. Time out was done confirming proper patient, proper procedure. Following that 5 mm incision was made in the left lower quadrant, Veress needle inserted and abdomen insufflated to 15 mmHg. Veress needle was removed. 5 mm Optiview port used to gain access to the abdomen. Once the abdomen was entered there were adhesions of small bowel in the right lower quadrant up the anterior abdominal wall. The omentum was also adhered down there. There was obvious murky fluid in the whole entire right lower quadrant. Another 8 mm port was placed supraumbilically in the midline, another 5 mm port in the left lower quadrant. The right lower quadrant was aspirated removing all the fluid from it. Omentum was mobilized superiorly. The cecum was identified and traced retrograde to find the appendix. The appendix was adhered to multiple loops of small bowel. I was able to gently move those out of the way and find the appendix. The appendix was then elevated superiorly. The mesoappendix was dissected free using Enseal. Once the base was reached it was ligated with two PDS Endoloops. The appendix was then amputated and placed inside a 5 mm Endo Catch bag. 19-[place] Andrew drain was then placed inside the right lower quadrant, brought out through the left lower quadrant incision site. The appendix was then removed through the umbilical port site. Once the appendix was out the fascia of the umbilical port site was closed with [id number] #0 Vicryl suture. The abdomen was desufflated. Skin incisions closed with 4-0 Vicryl subcuticular sutures. Drain was sutured in place with 2-0 silk. The abdomen was cleaned and dried. 4 x 4 and tape were applied. This ended the procedure.
[2020-08-11] MEDS ORDERED: ENOXAPARIN 40MG/0.4ML SYRINGE (J1650 PER 10MG) SC SCH (09:00)
[2020-08-11] MEDS: FLUTICASONE PROP 0.05% NASAL SPRAY 16 GM (FLONASE) NARES SCH (09:00)
[2020-08-11] MEDS: ASPIRIN 81 MG ENTERIC TAB PO SCH (09:10)
[2020-08-11] MEDS: NS 1,000 ML IV SCH (09:10)
[2020-08-11] MEDS: FOLIC ACID 1 MG TAB PO SCH (09:10)
[2020-08-11] MEDS: PANTOPRAZOLE 40MG TAB (PROTONIX) PO SCH (09:10)
[2020-08-11] MEDS: CLOPIDOGREL 75 MG TAB PO SCH (09:10)
[2020-08-11] MEDS: THIAMINE 100 MG TAB PO SCH ×2 (09:10→21:13)
[2020-08-11] MEDS: MULTIVITAMINS/MINERALS THERAP 1 TAB PO SCH (09:12)
[2020-08-11] MEDS: SENOKOT S TAB PO SCH ×2 (09:12→21:13)
[2020-08-11] MEDS: FENOFIBRATE 145 MG TAB (TRICOR) PO SCH (09:12)
[2020-08-11] MEDS: METOPROLOL SUCC *XL* 25MG TAB (TopROL *XL*) PO SCH (09:12)
--- NOTE | 2020-08-11 09:28 | IPNPDOC ---
Text Note Date of Service The patient was seen on 08/11/20. NOTE THIS IS A TELEMEDICINE VISIT No acute changes overnight. He is tolerating reg diet and pain is minimal. He is anxious to go home. He is passing flatus, but no BM yet. VSSAF NAD drain is "pink" labs - below A) 69y/o male with perforated appendix and COVID + P) reg deit abx d/c IVF monitor labs plan on d/c home in the am Vito Lock DO VS,Derrickbone, I+O VS, Fishbone, I+O Laboratory Tests 08/11/20 06:18 Vital Signs Date Time Temp Pulse Resp B/P (MAP) Pulse Ox O2 Delivery O2 Flow Rate FiO2 08/11/20 09:12 88 115/58 08/11/20 08:00 96.6 18 94 Room Air 08/11/20 04:57 2.0 I&O- Last 24 Hours up to 6 AM 08/11/20 06:00 Intake Total 6635 ml Output Total 560 ml Balance 6075 ml FELICIA LOCK DO Aug 11, 2020 09:28
--- NOTE | 2020-08-11 13:17 | IPNPDOC ---
Text Note Date of Service The patient was seen on 08/11/20. NOTE Subjective No acute events overnight. He has been afebrile and sating at 94% on RA. Patient is standing and eating in room. Patient denies any visual changes, head ache, fever, chills, or edema. OBJECTIVE: VITAL SIGNS: Please see below. GENERAL: Patient was interviewed and examined in her hospital room. She was found to be resting comfortably, easily woken. No acute distress noted. Patient is hard of hearing. She is able to actively participate in examination. HEENT: normocephalic, atraumatic, EOMI, sclera nonicteric, MMM CARDIOVASCULAR EXAMINATION: Regular rate and rhythm, no appreciable murmur RESPIRATORY EXAMINATION: Clear to auscultation, examination limited by disposable stethoscope ABDOMEN: Drain in place in LLQ and is clean and intact. Serosanguineous fluid in drain bulb. Bandage without any drainage. Abdomen is soft, tender, and non- distended. EXTREMITIES: Radial and posterior tibial pulses 2+ bilaterally. No lower extremity swelling or edema. Patient is able to move her extremities only difficulty. No calf tenderness bilaterally. SKIN: No appreciable rashes or new skin lesions NEUROLOGICAL EXAMINATION: Awake, alert, oriented 3, cranial nerves are grossly intact Assessment/Plan Patient is a 69 y.o. M with history of COPD, HTN, hyperlipidemia, CAD, PAD, who presented to the ED due to abdominal pain onset Friday (08/06). His symptoms gradually worsened and he developed nausea and vomiting on 08/08. His abdominal pain worsened to 10/10 pain and migrated to his RLQ at 3 AM on 08/10 when he presented to the ED. He was found to have a perforated appendix and was taken to the OR for appendectomy and washout by Dr. Lock. Patient was incidentally found to be positive for COVID-19. #Perforated appendicitis - Appendectomy and washout performed by Dr. Lock on 08/10/20. - Currently on piperqacillin/tazobactam, IVF, and pain control #COVID-19 - Patient has been afebrile overnight and sating at 94% RA. Patient is stable in our stand point and is okay for discharge. Recommend discharging with vitamin C and zinc. #Hypertension - Patient was hypotensive postoperatively. Will hold antihypertensive medications for now #CAD s/p stent placement - Continue dual antiplatelet therapy and statin #Hypothyroidism - Synthroid #Hyperlipidemia - Lipitor Disposition Patient is stable and ready for discharge from our standpoint. Recommend discharging patient with vitamin C and zinc. VS,Fishbone, I+O VS, Fishbone, I+O Laboratory Tests 08/11/20 06:18 Vital Signs Date Time Temp Pulse Resp B/P (MAP) Pulse Ox O2 Delivery O2 Flow Rate FiO2 08/11/20 09:12 88 115/58 08/11/20 08:00 96.6 18 94 Room Air 08/11/20 04:57 2.0 I&O- Last 24 Hours up to 6 AM 08/11/20 06:00 Intake Total 6635 ml Output Total 560 ml Balance 6075 ml GME ATTESTATION GME ATTESTATION My faculty preceptor for this patient encounter was physically present during the encounter and was fully available. All aspects of the patient interview, examination, medical decision making process, and medical care plan development were reviewed and approved by the faculty preceptor. The faculty preceptor is aware and concurs with the plan as stated in the body of this note and will attest to such by his/her cosignature. Dasha CARTER-3 Aug 11, 2020 10:32 AGUSTIN MARROQUIN DO Aug 11, 2020 13:17
[2020-08-11] MEDS ORDERED: ALPRAZolam 0.5 MG TAB PO PRN (13:30)
[2020-08-11] MEDS: ALPRAZolam 0.5 MG TAB PO PRN (14:01)
[2020-08-11] MEDS: ATORVASTATIN 20 MG TAB PO SCH (21:13)
[2020-08-12] VITALS (10 sets, daily range): BP systolic 115–161; BP diastolic 58–76; O2SAT 91–97
[2020-08-12] MEDS: LEVOTHYROXINE 50MCG TABLET (0.05MG) PO SCH (04:48)
[2020-08-12] MEDS: PIPERACILLIN/TAZOBACTAM SOD 3.375 GM in D5W MINI-BAG PLUS 50 ML IV SCH ×4 (04:48→21:09)
[2020-08-12] MEDS: ADVAIR HFA 115/21MCG INHALER INH SCH ×2 (07:56→22:06)
[2020-08-12 08:07] LABS: HEMATOCRIT 40.4 % (42.0-52.0); HEMOGLOBIN 12.9 g/dl (13.5-17.5); MEAN CORPUSCULAR HEMOGLOBIN 30.6 pg (27.0-33.0); MEAN CORPUSCULAR HGB CONC 31.9 g/dl (32.0-36.5); PLATELET COUNT, AUTOMATED 170 10^3/uL (150-450); RED BLOOD COUNT 4.21 10^6/uL (4.30-6.10); WHITE BLOOD COUNT 10.7 10^3/uL (4.0-10.0)
[2020-08-12 08:23] LABS: ALBUMIN 2.7 GM/DL (3.2-5.2); ALT/SGPT 29 U/L (12-78); BILIRUBIN,DIRECT 0.2 MG/DL (0.0-0.2); BILIRUBIN,TOTAL 0.4 MG/DL (0.2-1.0); BLOOD UREA NITROGEN 15 MG/DL (7-18); CALCIUM LEVEL 8.2 MG/DL (8.8-10.2); CARBON DIOXIDE LEVEL 29 MEQ/L (21-32); CHLORIDE LEVEL 102 MEQ/L (98-107); CPK CREATINE PHOSPHOKINASE 211 U/L (39-308); CREATININE FOR GFR 0.99 MG/DL (0.70-1.30); FERRITIN 188 NG/ML (26-388); GLOMERULAR FILTRATION RATE > 60.0 (>49); GLUCOSE, FASTING 94 MG/DL (70-100); LDH LACTATE DEHYDROGENASE 177 U/L (87-241); SODIUM LEVEL 139 MEQ/L (136-145); TOTAL PROTEIN 5.9 GM/DL (6.4-8.2)
[2020-08-12] MEDS: CLOPIDOGREL 75 MG TAB PO SCH (08:31)
[2020-08-12] MEDS: FOLIC ACID 1 MG TAB PO SCH (08:31)
[2020-08-12] MEDS: PANTOPRAZOLE 40MG TAB (PROTONIX) PO SCH (08:31)
[2020-08-12] MEDS: FENOFIBRATE 145 MG TAB (TRICOR) PO SCH (08:31)
[2020-08-12] MEDS: FLUTICASONE PROP 0.05% NASAL SPRAY 16 GM (FLONASE) NARES SCH (08:31)
[2020-08-12] MEDS: SENOKOT S TAB PO SCH ×2 (08:31→20:42)
[2020-08-12] MEDS: THIAMINE 100 MG TAB PO SCH ×2 (08:32→20:43)
[2020-08-12] MEDS: MULTIVITAMINS/MINERALS THERAP 1 TAB PO SCH (08:32)
[2020-08-12] MEDS: ASPIRIN 81 MG ENTERIC TAB PO SCH (08:32)
[2020-08-12] MEDS: METOPROLOL SUCC *XL* 25MG TAB (TopROL *XL*) PO SCH (08:35)
[2020-08-12 09:21] LABS: FIBRINOGEN 1041 MG/DL (221-452)
[2020-08-12] MEDS ORDERED: ISOVUE-370 76% 100ML VIAL As Ordered ONE (09:30)
[2020-08-12 09:43] LABS: D-DIMER QUANT > 4000 ng/ml (<500)
--- NOTE | 2020-08-12 10:25 | IPNPDOC ---
Text Note Date of Service The patient was seen on 08/12/20. NOTE I saw Mr. Teran today on video teleconference having and discussed his c ourse with his nurse as well as with the hospitalist. Stable overnight. He has been afebrile. He is mildly tachycardic. He is denying any severe abdominal discomfort and nausea or vomiting, has had a small bowel movement today. He saturates about 94% on room air though he is having some mildly productive cough which she tells me is present even before he got sick with the appendicitis. Vital signs MAXIMUM TEMPERATURE 99.3 BP 116/63 Pulse rate 1:15 Respiratory rate 20 97% at 2 L nasal cannula Patient looks comfortable. He is awake alert and oriented he is cooperative. He is abdomen is moderately protuberant though he tells me this is at baseline. His IESHA drain is mostly serous. There is some tissue within the elbow itself but the tubing has clear serous drainage. For the past 2 days disease is been draining 300 mL's. Overnight this is drained 50 mL so far. Laboratory shows white cell count of 10.7 hemoglobin of 12.9, hematocrit of 40.4 platelet count of 170. Electrolytes are within normal including BUN and creatinine. CRP is elevated at 22.7, d-dimer is elevated at greater than 4000 Impression and plan Postop day 2 laparoscopic appendectomy, locally perforated appendicitis without abscess Covid positive From surgical standpoint he seems to the stable. His drain which is putting out a lot the past 2 days seems to be trailing off and this looks serous, mildly serosanguineous and not purulent. Issues pertaining to his surgery includes whether to discontinue semicoma to drain. Given the drainage is mostly serous, I would discontinue the drain prior to him going home. He was presumed not symptomatic from his Covid but he has a baseline COPD, baseline coughing with mildly productive sputum. I discussed his condition with the hospitalist and they are going to get a CT angiogram today and decide whether he is stable enough for safe to go home from their standpoint after t his. If he goes home he will be discharged home on oral antibiotics and some pain medications. He would follow-up in the clinic in 2 weeks' time. If he needs to be seen before that, he may need to go to the emergency room. VS,Roman, I+O VS, Roman, I+O Laboratory Tests 08/12/20 07:39 Vital Signs Date Time Temp Pulse Resp B/P (MAP) Pulse Ox O2 Delivery O2 Flow Rate FiO2 08/12/20 08:35 115 116/63 08/12/20 04:50 97 Nasal Cannula 2.0 08/12/20 04:50 99.3 20 I&O- Last 24 Hours up to 6 AM 08/12/20 06:00 Intake Total 1320 ml Output Total 120 ml Balance 1200 ml HONEY RIVERA MD Aug 12, 2020 10:25
--- NOTE | 2020-08-12 10:35 | REP ---
INDICATION: COVID+, Tachycardic. COMPARISON: Comparison chest CT study 23 March 2020.. TECHNIQUE: Contrast dose: Seventy-five ML of Isovue [address] technique: Helical scanning is acquired and overlapping 1.5 mm and contiguous 3 mm axial images are reformatted. In addition, maximum intensity projection and multiplanar re-formation images are generated in sagittal and coronal imaging projections. FINDINGS: There is good opacification in the pulmonary arterial tree. There is no evidence of vessel cut off or filling defect to suggest pulmonary embolus. Homogeneous opacity is seen in the thoracic aorta. There is no evidence of aneurysm or dissection. Lung window settings demonstrate an area of subsegmental atelectasis in the right lower lobe. There is minimal platelike atelectasis on the left in the lingula. There is no evidence of pulmonary parenchymal consolidation. Mild linear fibrosis is seen in the right lung apex. No pulmonary mass or significant pulmonary nodule is seen. There is a very small sliver of right pleural fluid. No pericardial fluid is evident. There is no evidence of hilar or mediastinal mass. There are scattered normal sized mediastinal lymph nodes. These appear to be unchanged from comparison CT study. There is a granulomatous lymph node calcification in the right inferior hilus. In the upper abdomen, there is moderate diffuse fatty infiltration of the liver. Normal adrenal glands. The visualized upper abdominal structures are otherwise unremarkable. IMPRESSION: No CT evidence of pulmonary embolus. Subsegmental discoid atelectasis right lower lobe. Minimal platelike atelectasis left lower lobe. Very small amount of right pleural fluid. Fatty infiltration of the liver. Otherwise no acute disease. <Electronically signed by Gary Miller > 08/12/20 [id number]
--- NOTE | 2020-08-12 11:13 | IPNPDOC ---
Text Note Date of Service The patient was seen on 08/12/20. NOTE ADDENDUM: And continues to be tachycardic. Despite negative CTA and being on Zosyn, patient's WBC, and inflammatory markers continued to trend upward. A lactic acid was repeated and found to be elevated at 2.9. Patient became febrile at 1400. Two 500 ml boluses were given and then the pt was started on IVF. Blood and sputum cultures have been reordered. Tylenol PRN for fever. Case has been discussed with general surgery. Should the patient's condition continued to decline, consider repeat CT of the patient's abdomen and pelvis to rule out abscess. Subjective No acute events overnight. Remains tachycardic this morning. No signs of ETOH withdrawl. He has been afebrile and sating at 94% on RA, though he will desat with exertion . Patient is seated on the side of his bed eating. Patient denies any visual changes, headache, fever, chills, or edema. OBJECTIVE: VITAL SIGNS: Please see below. GENERAL: Patient was interviewed and examined in her hospital room. She was found to be resting comfortably, easily woken. No acute distress noted. Patient is hard of hearing. She is able to actively participate in examination. HEENT: normocephalic, atraumatic, EOMI, sclera nonicteric, MMM CARDIOVASCULAR EXAMINATION: Regular rate and rhythm, no appreciable murmur RESPIRATORY EXAMINATION: Clear to auscultation, examination limited by disposable stethoscope ABDOMEN: Drain in place in LLQ and is clean and intact. Serosanguineous fluid in drain bulb. Bandage without any drainage. Abdomen is soft, tender, and non- distended. EXTREMITIES: Radial and posterior tibial pulses 2+ bilaterally. No lower extremity swelling or edema. No calf tenderness bilaterally. SKIN: No appreciable rashes or new skin lesions NEUROLOGICAL EXAMINATION: Awake, alert, oriented 3, cranial nerves are grossly intact Assessment/Plan Patient is a 69 y.o. M with history of COPD, HTN, hyperlipidemia, CAD, PAD, who presented to the ED due to abdominal pain onset Friday (08/06). His symptoms gradually worsened and he developed nausea and vomiting on 08/08. His abdominal pain worsened to 10/10 pain and migrated to his RLQ at 3 AM on 08/10 when he presented to the ED. He was found to have a perforated appendix and was taken to the OR for appendectomy and washout by Dr. Lock. Patient was incidentally found to be positive for COVID-19. Patient is stable for discharge in regards to his COVID-19 diagnosis. Patient to be sent home with home oxygen and close PCP follow-up. He will also be given prescriptions for Vitamin C and Zinc supplementation. He should return to the ED should his breathing status worsen, or should he experience CP or fevers. #Perforated appendicitis - Appendectomy and washout performed by Dr. Lock on 08/10/20. Post-op Day #3. - Currently on piperacillin/tazobactam, IVF, and pain control - S/P BM x2 this morning, - Currently being managed by surgery; follow-up with general surge outpatient in 2 weeks. #COVID-19 - Patient has been afebrile overnight and sating at 94% RA. - Patient is stable from our stand point and is okay for discharge. - Recommend discharging with vitamin C and zinc supplementation. - Oxygen saturation of 95% on RA while at rest, dips to high 80's with ambulation. - Pt to be discharge on home oxygen at 2L. Follow-up with PCP in 1 week. #Tachycardia - BP stable, - D-dimer remains elevated. CTA to rule out PE, negative. - Orthostats #Hypertension - Patient was hypotensive postoperatively. - Metoprolol was resumed #CAD s/p stent placement - Continue dual antiplatelet therapy and statin #Hypothyroidism - Synthroid #Hyperlipidemia - Lipitor Disposition: - Patient is stable and ready for discharge from our standpoint. - Recommend discharging patient with vitamin C and zinc. VS,Fishbone, I+O VS, Fishbone, I+O Laboratory Tests 08/12/20 07:39 Vital Signs Date Time Temp Pulse Resp B/P (MAP) Pulse Ox O2 Delivery O2 Flow Rate FiO2 08/12/20 08:35 115 116/63 08/12/20 04:50 97 Nasal Cannula 2.0 08/12/20 04:50 99.3 20 I&O- Last 24 Hours up to 6 AM 08/12/20 06:00 Intake Total 1320 ml Output Total 120 ml Balance 1200 ml GME ATTESTATION GME ATTESTATION My faculty preceptor for this patient encounter was physically present during the encounter and was fully available. All aspects of the patient interview, examination, medical decision making process, and medical care plan development were reviewed and approved by the faculty preceptor. The faculty preceptor is aware and concurs with the plan as stated in the body of this note and will attest to such by his/her cosignature. ATTENDING NOTE I, Kp Sanders, have independently examined this patient and performed my own physical exam, as well as reviewed the documentation and edited where necessary. I have discussed in detail with the resident / student the findings and plan of treatment as documented by the resident / student and edited their note. I agree with their findings and treatment plan and have edited their documentation. I will continue to follow the patient during this hospital stay. AGUSTIN MARROQUIN DO Aug 12, 2020 11:13 KP SANDERS MD Aug 12, 2020 11:55
[2020-08-12] MEDS ORDERED: SODIUM CHLORIDE 0.9% 1000ML IV ONE (11:15)
[2020-08-12] MEDS ORDERED: LEVALBUTEROL HFA 45MCG/ACT 15 GM INHALER INH PRN (11:15)
[2020-08-12] MEDS: ALPRAZolam 0.5 MG TAB PO PRN (13:15)
[2020-08-12] MEDS ORDERED: NS 500 ML IV ONE (14:15)
[2020-08-12] MEDS: ACETAMINOPHEN TAB 650MG DOSE (2X325MG) PO PRN (14:58)
[2020-08-12] MEDS ORDERED: KCL 20MEQ IN 0.45NS 1000ML 1,000 ML IV SCH (15:00)
[2020-08-12] MEDS ORDERED: NS 1,000 ML IV SCH (15:00)
[2020-08-12] MEDS: KCL 20MEQ IN 0.45NS 1000ML 1,000 ML IV SCH (15:23)
[2020-08-12] MEDS: guaiFENesin ER 600 MG TAB PO SCH ×2 (15:24→20:43)
[2020-08-12 16:17] LABS: BASO % 0.4 % (0.0-1.0); EOS # 0.3 10^3/uL (0.0-0.5); EOS % 2.7 % (0.0-3.0); HEMATOCRIT 36.6 % (42.0-52.0); HEMOGLOBIN 11.7 g/dl (13.5-17.5); LYMPH # 0.8 10^3/uL (1.5-5.0); LYMPH % 8.1 % (24.0-44.0); MEAN CORPUSCULAR HEMOGLOBIN 30.2 pg (27.0-33.0); MEAN CORPUSCULAR VOLUME 94.3 fl (80.0-96.0); MONO # 0.6 10^3/uL (0.0-0.8); MONO % 5.5 % (2.0-8.0); NEUTROPHILS # 8.4 10^3/uL (1.5-8.5); NEUTROPHILS % 81.2 % (36.0-66.0); PLATELET COUNT, AUTOMATED 180 10^3/uL (150-450); RED BLOOD COUNT 3.88 10^6/uL (4.30-6.10); WHITE BLOOD COUNT 10.3 10^3/uL (4.0-10.0)
[2020-08-12] MEDS: ATORVASTATIN 20 MG TAB PO SCH (20:43)
[2020-08-12] MEDS: NORCO, ANEXSIA 5/325MG TABLET (HYDROcodone/ACETAMINOPHEN) PO PRN (20:45)
[2020-08-13] VITALS (9 sets, daily range): BP systolic 99–151; BP diastolic 54–82; O2SAT 90–97
[2020-08-13] MEDS: NORCO, ANEXSIA 5/325MG TABLET (HYDROcodone/ACETAMINOPHEN) PO PRN ×2 (04:28→16:21)
[2020-08-13] MEDS: PIPERACILLIN/TAZOBACTAM SOD 3.375 GM in D5W MINI-BAG PLUS 50 ML IV SCH ×3 (04:30→16:12)
[2020-08-13] MEDS: KCL 20MEQ IN 0.45NS 1000ML 1,000 ML IV SCH ×3 (04:30→23:58)
[2020-08-13] MEDS: LEVOTHYROXINE 50MCG TABLET (0.05MG) PO SCH (06:25)
[2020-08-13 06:58] LABS: BASO # 0.1 10^3/uL (0.0-0.2); BASO % 0.5 % (0.0-1.0); EOS # 0.3 10^3/uL (0.0-0.5); EOS % 2.8 % (0.0-3.0); HEMATOCRIT 36.4 % (42.0-52.0); HEMOGLOBIN 11.5 g/dl (13.5-17.5); LYMPH # 0.8 10^3/uL (1.5-5.0); LYMPH % 7.4 % (24.0-44.0); MEAN CORPUSCULAR HGB CONC 31.6 g/dl (32.0-36.5); MONO # 0.8 10^3/uL (0.0-0.8); MONO % 7.7 % (2.0-8.0); NEUTROPHILS # 8.7 10^3/uL (1.5-8.5); NEUTROPHILS % 80.8 % (36.0-66.0); PLATELET COUNT, AUTOMATED 166 10^3/uL (150-450); RED BLOOD COUNT 3.83 10^6/uL (4.30-6.10); WHITE BLOOD COUNT 10.7 10^3/uL (4.0-10.0)
[2020-08-13 07:15] LABS: FIBRINOGEN 844 MG/DL (221-452)
[2020-08-13 07:32] LABS: ALBUMIN 2.3 GM/DL (3.2-5.2); ALT/SGPT 25 U/L (12-78); BILIRUBIN,DIRECT 0.2 MG/DL (0.0-0.2); BILIRUBIN,TOTAL 0.4 MG/DL (0.2-1.0); BLOOD UREA NITROGEN 12 MG/DL (7-18); CALCIUM LEVEL 7.8 MG/DL (8.8-10.2); CARBON DIOXIDE LEVEL 29 MEQ/L (21-32); CHLORIDE LEVEL 104 MEQ/L (98-107); CPK CREATINE PHOSPHOKINASE 93 U/L (39-308); CREATININE FOR GFR 0.83 MG/DL (0.70-1.30); FERRITIN 154 NG/ML (26-388); GLOMERULAR FILTRATION RATE > 60.0 (>49); GLUCOSE, FASTING 89 MG/DL (70-100); LDH LACTATE DEHYDROGENASE 159 U/L (87-241); POTASSIUM SERUM 3.7 MEQ/L (3.5-5.1); SODIUM LEVEL 139 MEQ/L (136-145); TOTAL PROTEIN 5.3 GM/DL (6.4-8.2)
[2020-08-13 07:35] LABS: D-DIMER QUANT > 4000 ng/ml (<500)
[2020-08-13] MEDS: ADVAIR HFA 115/21MCG INHALER INH SCH ×2 (07:49→19:31)
[2020-08-13] MEDS: ASPIRIN 81 MG ENTERIC TAB PO SCH (08:15)
[2020-08-13] MEDS: CLOPIDOGREL 75 MG TAB PO SCH (08:16)
[2020-08-13] MEDS: guaiFENesin ER 600 MG TAB PO SCH ×2 (08:16→23:59)
[2020-08-13] MEDS: MULTIVITAMINS/MINERALS THERAP 1 TAB PO SCH (08:16)
[2020-08-13] MEDS: PANTOPRAZOLE 40MG TAB (PROTONIX) PO SCH (08:16)
[2020-08-13] MEDS: SENOKOT S TAB PO SCH ×2 (08:16→23:58)
[2020-08-13] MEDS: FOLIC ACID 1 MG TAB PO SCH (08:16)
[2020-08-13] MEDS: FENOFIBRATE 145 MG TAB (TRICOR) PO SCH (08:16)
[2020-08-13] MEDS: THIAMINE 100 MG TAB PO SCH (08:16)
[2020-08-13] MEDS: METOPROLOL SUCC *XL* 25MG TAB (TopROL *XL*) PO SCH (08:18)
[2020-08-13] MEDS: FLUTICASONE PROP 0.05% NASAL SPRAY 16 GM (FLONASE) NARES SCH (08:18)
[2020-08-13] MEDS ORDERED: ISOVUE-370 76% 100ML VIAL As Ordered ONE (08:37)
--- NOTE | 2020-08-13 09:44 | REP ---
INDICATION: Abdominal pain. COMPARISON: Comparison CT study August 10, 2020 showing changes of acute appendicitis.. TECHNIQUE: Helical scanning is acquired and 3 mm axial images re-formatted. Coronal and sagittal MPR images are generated. The CT contrast enhancement dose is 100 mL of intravenous Isovue 370. FINDINGS: Preliminary digital shoemaker apprentice radiograph demonstrates a surgical drain in the right lower quadrant. The bowel gas pattern is unremarkable. There is discoid atelectasis in the right lower lobe of the lung. There is moderate diffuse fatty infiltration of the liver. Spleen is homogeneous and normal in size. Kidneys enhance symmetrically and are morphologically intact. Gallbladder and pancreas are unremarkable. There is a small peripheral cyst at the left mid kidney laterally. There are inflammatory changes in the right lower quadrant with extensive mesenteric streaking and paracolic gutter thickening and cysts tiny amount of fluid. There is mural thickening in the cecum and ascending colon. A tubular fluid-filled structure remains apparently originating from the cecal tip with a thick-walled enhancing margins and adjacent inflammation. This 5 cm long blind-ending tubular structure appears to be a portion of the appendix consistent with incomplete appendectomy. At the origin from the cecal tip there is a focal defect in its wall with a tiny fluid collection. There is no evidence of drainable abscess. There are 1 or 2 bubbles of noncontained air adjacent to this. No other evidence of pneumoperitoneum. Surgical drain extends into the right lower quadrant adjacent to the cecum. IMPRESSION: Findings consistent with incomplete appendectomy, persistent acute perforated appendicitis changes with 1 or 2 bubbles of noncontained peritoneal air. No drainable abscess. <Electronically signed by Gary Miller > 08/13/20 [id number]
--- NOTE | 2020-08-13 09:55 | IPNPDOC ---
Text Note Date of Service The patient was seen on 08/13/20. NOTE Subjective: Patient is a 69-year-old male with a PMHx of CAD s/p Stent (2012), PVD s/p L femoral endarterectomy (2018), HTN, DLP, COPD, Laryngeal CA (follows with Dr. Nunez), Hypothyroidism, who presented to the emergency room with complaints of abdominal pain. Emergency room, patient was found to have acute appendicitis and was imaged surgical service for further evaluation and treatment. Patient was taken to the OR immediately. Hospitalist service was consulted for medical management after he was found to be COVID19 positive. Patient was seen and examined at the bedside. Currently patient still reports some abdominal discomfort. Has not experience any nausea, vomiting. Has had some bowel movements. Denies any urinary discomfort. Reports that yesterday he was having a productive cough, however today is not coughing significantly at all. P atient denies any shortness of breath. Objective: Vitals (See below) General: Lying in bed, appears comfortable, AAOx3 HEENT: NC, AT CVS: +S1S2 Lungs: Fair air entry b/l, no visual wheezing, rhonchi or rales Abdomen: Soft, appears mildly distended, diffuse tenderness noted Extremities: - Edema, - Calf tenderness Imaging: CT abdomen / pelvis 08/10: Changes indicating acute appendicitis with considerable Alda appendiceal inflammatory reaction, a small amount of right pericolic gutter ascites fluid, 2 bubbles of free intraperitoneal air, and mildly hypertrophied mesenteric lymph nodes. No abscess is seen. Also noted is marked diffuse fatty infiltration of the liver. CXR 08/10: No acute cardiopulmonary process appreciated. If the patient remains symptomatic consider chest CT for further investigation. CTA Chest 08/12: No CT evidence of pulmonary embolus. Subsegmental discoid atelectasis right lower lobe. Minimal platelike atelectasis left lower lobe. Very small amount of right pleural fluid. Fatty infiltration of the liver. Otherwise no acute disease. Abdomen / pelvis 08/13: Findings consistent with incomplete appendectomy, persistent acute perforated appendicitis changes with 1 or 2 bubbles of noncontained peritoneal air. No drainable abscess. Assessment and plan: Abdominal pain - likely 2/2 perforated appendicitis - Physical still reveals abdominal distention and tenderness - Leukocytosis persists - Imaging noted above - Appendectomy and washout performed by Dr. Lock on 08/10/20 (POD#4) - Currently on Zosyn (Day #4) - Patient is currently on the surgical service - appendicitis being managed by surgery; possibly may require additional intervention today, will defer to surgical team - Will change to NPO status for now until evaluated by surgery s/p Lactic acidosis COVID-19 - Patient low fever yesterday - Reports that his breathing is doing fine and reports that his coughing has improved - Currently is only on 1 L nasal cannula oxygen - Inflammatory markers have had slight improvement today - Imaging noted - c/w Mucinex CAD s/p Stent (2013) - c/w ASA, Plavix, Atorvastatin PVD s/p L femoral endarterectomy (2019) - c/w ASA, Plavix, Atorvastatin HTN - BP well controlled - Currently not on medications DLP - c/w Atorvastatin and ASA 81 Chronic COPD - No evidence of exacerbation - c/w inhaled therapy as ordered Laryngeal CA - Follows with Dr. Nunez Hypothyroidism - c/w Levothyroxine GI prophylaxis - c/w Protonix DVT prophylaxis - c/w TEDs/Sequentials Disposition: - Awaiting clinical improvement - Defer surgical management to surgery VS,Derrickbone, I+O VS, Derrickbone, I+O Laboratory Tests 08/12/20 15:32 08/13/20 06:46 Vital Signs Date Time Temp Pulse Resp B/P (MAP) Pulse Ox O2 Delivery O2 Flow Rate FiO2 08/13/20 08:18 95 118/70 08/13/20 08:00 97.8 21 95 Nasal Cannula 1.0 I&O- Last 24 Hours up to 6 AM 08/13/20 06:00 Intake Total 3010 ml Output Total 435 ml Balance 2575 ml HERNANDEZ SANDESR MD Aug 13, 2020 09:55
--- NOTE | 2020-08-13 10:25 | REP ---
INDICATION: Elevated D-dimers. COMPARISON: None. TECHNIQUE: Bilateral lower extremity duplex venous scanning. FINDINGS: The deep veins are anechoic and fully compressible from the groin to the popliteal fossa in the left and right lower extremity. Color flow imaging is homogeneous. Spectral Doppler interrogation demonstrates intact respiratory variation in flow and normal manual augmentation of flow. There is no evidence of deep vein thrombosis. Bilateral Chaudhary's cysts are noted in the popliteal fossa on each side. On the right this measures 4.9 by 0.7 x 0.9 cm. Left Chaudhary's cyst measures 6.0 x 0.7 x 2.4 cm. IMPRESSION: Negative bilateral lower extremity duplex venous ultrasound. No evidence of deep vein thrombosis. Bilateral Chaudhary's cysts are seen. <Electronically signed by Gary Miller > 08/13/20 1025
[2020-08-13] MEDS ORDERED: MOM 30ML SUSPENSION UDC PO ONE (11:45)
[2020-08-13] MEDS: BENZONATATE 100 MG CAP PO PRN (16:20)
[2020-08-13] MEDS ORDERED: LORazepam 2 MG/ML VIAL As Ordered ONE (17:16)
[2020-08-13] MEDS: LORazepam 2 MG/ML VIAL IV PRN (17:20)
--- NOTE | 2020-08-13 18:57 | IPNPDOC ---
Text Note Date of Service The patient was seen on 08/13/20. NOTE Patient is seen a couple of times today. He continues to have intermittent low- grade fever and symptoms of systemic inflammatory response including tachycardia, mild tachypnea. Repeat CT of the abdomen and pelvis was noted this morning showing evidence of incomplete appendectomy. No new abscess noted. Inflammatory markers are mildly improved though still elevated. I discussed with him options of continuing with IV antibiotics versus going back to the operating room for completion appendectomy. This morning he was feeling mildly improved and thus we decided to hold off on surgical intervention but this afternoon continues to have low-grade fever and increasing abdominal pain and discomfort and thus we have decided to go ahead and bring him to the operating room for di agnostic laparoscopy and completion appendectomy. VS,Roman, I+O VS, Roman, I+O Laboratory Tests 08/13/20 06:46 Vital Signs Date Time Temp Pulse Resp B/P (MAP) Pulse Ox O2 Delivery O2 Flow Rate FiO2 08/13/20 16:51 30 Nasal Cannula 1.0 08/13/20 16:00 93 08/13/20 16:00 100.2 105 123/70 (87) I&O- Last 24 Hours up to 6 AM 08/13/20 06:00 Intake Total 3010 ml Output Total 435 ml Balance 2575 ml HONEY RIVERA MD Aug 13, 2020 18:57
[2020-08-13] MEDS ORDERED: LIDOCAINE 1% SDV 30ML VIAL As Ordered ONE (19:43)
[2020-08-13] MEDS ORDERED: BUPIVACAINE HCL 0.25% 30ML VIAL As Ordered ONE (19:43)
[2020-08-13] MEDS ORDERED: PHENYLephrine 500MCG 5ML (100MCG/ML) SYRINGE As Ordered ONE (20:02)
[2020-08-13] MEDS ORDERED: LIDOCAINE 2% 100MG/5ML SDV (FOR ANES.) As Ordered ONE (20:02)
[2020-08-13] MEDS ORDERED: ROCURONIUM BROMIDE 50 MG/5 ML VIAL As Ordered ONE ×2 (20:02→21:19)
[2020-08-13] MEDS ORDERED: SUGAMMADEX SODIUM 500 MG/5 ML VIAL (BRIDION) As Ordered ONE (20:02)
[2020-08-13] MEDS ORDERED: ONDANSETRON 4MG/2ML VIAL As Ordered ONE (20:02)
[2020-08-13] MEDS ORDERED: fentaNYL 100 MCG/2 ML INJECTION (J3010) As Ordered ONE (20:02)
[2020-08-13] MEDS ORDERED: SUCCINYLCHOLINE 100 MG/5 ML SYRINGE (J0330) As Ordered ONE (20:02)
[2020-08-13] MEDS ORDERED: dexameTHASONE 4 MG/ML 1ML VIAL (J1100 PER 1MG) As Ordered ONE (20:02)
[2020-08-13] MEDS ORDERED: propofoL 200 MG/20 ML VIAL As Ordered ONE (20:02)
[2020-08-13] MEDS ORDERED: ePHEDrine SULFATE 25 MG/5 ML(5MG/ML) SYRINGE As Ordered ONE (20:02)
[2020-08-13] MEDS ORDERED: MIDAZOLAM INJ 2MG/2ML VIAL (J2250 PER 1MG) As Ordered ONE (20:02)
[2020-08-13] MEDS ORDERED: HYDROmorphone HCL 2 MG/ML 1ML VIAL (J1170) As Ordered ONE (21:09)
[2020-08-13] MEDS ORDERED: ZOSYN 3.375GM VIAL (J2543) As Ordered ONE (21:57)
[2020-08-13] MEDS ORDERED: NALOXONE INJ 0.4MG/1ML VIAL (J2310 PER 1MG) As Ordered ONE (22:34)
[2020-08-13] MEDS ORDERED: fentaNYL 100 MCG/2 ML INJECTION (J3010) IV PRN (23:15)
[2020-08-13] MEDS ORDERED: LR 1,000 ML IV SCH (23:15)
[2020-08-13] MEDS ORDERED: HYDROMORPHONE HCL 0.5 MG/ 0.5 ML SYRINGE (J1170 PER 1) IV PRN (23:15)
[2020-08-13] MEDS ORDERED: ONDANSETRON 4MG/2ML VIAL IV PRN (23:15)
[2020-08-13] MEDS ORDERED: oxyCODONE 5MG TAB PO PRN (23:15)
[2020-08-13] MEDS: ATORVASTATIN 20 MG TAB PO SCH (23:59)
[2020-08-14] VITALS (8 sets, daily range): BP systolic 116–143; BP diastolic 69–83; O2SAT 92–95
[2020-08-14] MEDS: PIPERACILLIN/TAZOBACTAM SOD 3.375 GM in D5W MINI-BAG PLUS 50 ML IV SCH ×5 (00:04→22:17)
[2020-08-14] MEDS: LEVOTHYROXINE 50MCG TABLET (0.05MG) PO SCH (04:32)
[2020-08-14] MEDS: KETOROLAC 30 MG/ML 1ML VIAL IV PRN (04:49)
[2020-08-14 05:42] LABS: HEMATOCRIT 37.9 % (42.0-52.0); HEMOGLOBIN 12.1 g/dl (13.5-17.5); MEAN CORPUSCULAR HEMOGLOBIN 30.5 pg (27.0-33.0); MEAN CORPUSCULAR HGB CONC 31.9 g/dl (32.0-36.5); MEAN CORPUSCULAR VOLUME 95.5 fl (80.0-96.0); PLATELET COUNT, AUTOMATED 208 10^3/uL (150-450); RED BLOOD COUNT 3.97 10^6/uL (4.30-6.10); WHITE BLOOD COUNT 12.1 10^3/uL (4.0-10.0)
[2020-08-14 05:53] LABS: FIBRINOGEN 844 MG/DL (221-452)
[2020-08-14 06:18] LABS: ALBUMIN 2.3 GM/DL (3.2-5.2); ALT/SGPT 33 U/L (12-78); BILIRUBIN,DIRECT 0.1 MG/DL (0.0-0.2); BILIRUBIN,TOTAL 0.3 MG/DL (0.2-1.0); BLOOD UREA NITROGEN 12 MG/DL (7-18); CALCIUM LEVEL 8.4 MG/DL (8.8-10.2); CARBON DIOXIDE LEVEL 29 MEQ/L (21-32); CHLORIDE LEVEL 101 MEQ/L (98-107); CPK CREATINE PHOSPHOKINASE 96 U/L (39-308); FERRITIN 171 NG/ML (26-388); GLOMERULAR FILTRATION RATE > 60.0 (>49); GLUCOSE, FASTING 121 MG/DL (70-100); LDH LACTATE DEHYDROGENASE 173 U/L (87-241); POTASSIUM SERUM 4.2 MEQ/L (3.5-5.1); SODIUM LEVEL 137 MEQ/L (136-145); TOTAL PROTEIN 6.5 GM/DL (6.4-8.2)
[2020-08-14 06:23] LABS: ATYPICAL LYMPH 2 % (0-5); LYMPHOCYTES 7 % (16-44); MONOCYTES 2 % (0-5); NEUTROPHILS 89 % (28-66); PLATELET ESTIMATE NORMAL (NORMAL)
[2020-08-14 06:55] LABS: D-DIMER QUANT > 4000 ng/ml (<500)
[2020-08-14] MEDS: ADVAIR HFA 115/21MCG INHALER INH SCH ×2 (07:20→21:05)
[2020-08-14] MEDS: SENOKOT S TAB PO SCH ×2 (08:23→20:00)
[2020-08-14] MEDS: FOLIC ACID 1 MG TAB PO SCH (08:23)
[2020-08-14] MEDS: ASPIRIN 81 MG ENTERIC TAB PO SCH (08:23)
[2020-08-14] MEDS: FENOFIBRATE 145 MG TAB (TRICOR) PO SCH (08:24)
[2020-08-14] MEDS: CLOPIDOGREL 75 MG TAB PO SCH (08:24)
[2020-08-14] MEDS: PANTOPRAZOLE 40MG TAB (PROTONIX) PO SCH (08:24)
[2020-08-14] MEDS: MULTIVITAMINS/MINERALS THERAP 1 TAB PO SCH (08:24)
[2020-08-14] MEDS: guaiFENesin ER 600 MG TAB PO SCH ×2 (08:24→20:02)
[2020-08-14] MEDS: METOPROLOL SUCC *XL* 25MG TAB (TopROL *XL*) PO SCH (08:24)
[2020-08-14] MEDS: FLUTICASONE PROP 0.05% NASAL SPRAY 16 GM (FLONASE) NARES SCH (08:25)
--- NOTE | 2020-08-14 08:40 | IPNPDOC ---
Text Note Date of Service The patient was seen on 08/14/20. NOTE THIS IS A TELEMEDICINE VISIT No acute changes overnight. He is tolerating clear liquid diet. Pain is minimal. He feels much better today. Denies nausea, emesis, fevers, or chills. VSSAF NAD drain is "pink" labs - below A) 69y/o male with perforated appendix and COVID +, s/p Lap appy 08/10, and completion lap appy 08/13 P) reg diet abx monitor labs plan on d/c home in the am if afebrile for 24 hours. Vito Lock DO VS,Fishbone, I+O VS, Fishbone, I+O Laboratory Tests 08/14/20 05:17 Vital Signs Date Time Temp Pulse Resp B/P (MAP) Pulse Ox O2 Delivery O2 Flow Rate FiO2 08/14/20 08:24 85 114/63 08/14/20 04:00 95 Nasal Cannula 4.0 08/14/20 04:00 97.2 18 I&O- Last 24 Hours up to 6 AM 08/14/20 06:00 Intake Total 3600 ml Output Total 1370 ml Balance 2230 ml FELICIA LOCK DO Aug 14, 2020 08:40
--- NOTE | 2020-08-14 11:28 | IPNPDOC ---
Text Note Date of Service The patient was seen on 08/14/20. NOTE Subjective: Patient is a 69-year-old male with a PMHx of CAD s/p Stent (2012), PVD s/p L femoral endarterectomy (2018), HTN, DLP, COPD, Laryngeal CA (follows with Dr. Nunez), Hypothyroidism, who presented to the emergency room with complaints of abdominal pain. Emergency room, patient was found to have acute appendicitis and was imaged surgical service for further evaluation and treatment. Patient was taken to the OR immediately. Hospitalist service was consulted for medical management after he was found to be COVID19 positive. Patient was seen and examined at the bedside. Patient reports that he has had an uneventful evening. Reports that his abdominal pain is doing significantly better. Has not experience any nausea, vomiting or stability to pass gas. Has not yet had a bowel movement. Denies any urinary discomfort. Has not spent any chest pain or palpitations. No cough or shortness of breath. Objective: Vitals (See below) General: Patient sitting up in bed eating breakfast, does not appear to be in any distress, is awake, alert and oriented to person, place and time HEENT: NC, AT CVS: +S1S2 Lungs: Air entry is fair bilaterally without any auscultated rhonchi, crackles or wheezing Abdomen: Patient's abdomen is distended but is soft. Mild tenderness is appreciated at right lower quadrant diffuse tenderness from yesterday has improved significantly Extremities: Lower extremities are free of any pitting edema Imaging: CT abdomen / pelvis 08/10: Changes indicating acute appendicitis with considerable Alda appendiceal inflammatory reaction, a small amount of right pericolic gutter ascites fluid, 2 bubbles of free intraperitoneal air, and mildly hypertrophied mesenteric lymph nodes. No abscess is seen. Also noted is marked diffuse fatty infiltration of the liver. CXR 08/10: No acute cardiopulmonary process appreciated. If the patient remains symptomatic consider chest CT for further investigation. CTA Chest 08/12: No CT evidence of pulmonary embolus. Subsegmental discoid atelectasis right lower lobe. Minimal platelike atelectasis left lower lobe. Very small amount of right pleural fluid. Fatty infiltration of the liver. Otherwise no acute disease. Abdomen / pelvis 08/13: Findings consistent with incomplete appendectomy, persistent acute perforated appendicitis changes with 1 or 2 bubbles of noncontained peritoneal air. No drainable abscess. Assessment and plan: Abdominal pain - likely 2/2 perforated appendicitis - He remains afebrile - Physical reveals improvement of abdominal tenderness - Leukocytosis / Will trend inflammatory markers - Imaging noted above - Appendectomy and washout performed by Dr. Lock on 08/10/[address] Bravo 08/13/2020 - Currently on Zosyn (Day #5) as per surgery - Pain control and Diet as per surgery s/p Lactic acidosis COVID-19 - Reports that his breathing is doing fine and reports that his coughing has improved - Currently is only on 1 L nasal cannula oxygen; will maintain saturation 88-92% (re: COPD) - Inflammatory markers will be trended - Imaging noted - c/w Mucinex CAD s/p Stent (2012) - c/w ASA, Plavix, Atorvastatin PVD s/p L femoral endarterectomy (2018) - c/w ASA, Plavix, Atorvastatin HTN - BP well controlled - Currently not on medications DLP - c/w Atorvastatin and ASA 81 Chronic COPD - No evidence of exacerbation - c/w inhaled therapy as ordered Laryngeal CA - Follows with Dr. Nunez Hypothyroidism - c/w Levothyroxine GI prophylaxis - c/w Protonix DVT prophylaxis - c/w TEDs/Sequentials Disposition: - Appears to be clinically improving - Discharge as per surgery VSRoman, I+O Roman MAYER I+O Laboratory Tests 08/14/20 05:17 Vital Signs Date Time Temp Pulse Resp B/P (MAP) Pulse Ox O2 Delivery O2 Flow Rate FiO2 08/14/20 08:24 85 114/63 08/14/20 04:00 95 Nasal Cannula 4.0 08/14/20 04:00 97.2 18 I&O- Last 24 Hours up to 6 AM 08/14/20 06:00 Intake Total 3600 ml Output Total 1370 ml Balance 2230 ml HERNANDEZ SANDERS MD Aug 14, 2020 11:28
[2020-08-14] MEDS: ATORVASTATIN 20 MG TAB PO SCH (20:02)
[2020-08-14] MEDS: NORCO, ANEXSIA 5/325MG TABLET (HYDROcodone/ACETAMINOPHEN) PO PRN (22:18)
[2020-08-14] MEDS: BENZONATATE 100 MG CAP PO PRN (22:18)
[2020-08-14] MEDS: LORazepam 2 MG/ML VIAL IV PRN (23:40)
[2020-08-15] MEDS: PIPERACILLIN/TAZOBACTAM SOD 3.375 GM in D5W MINI-BAG PLUS 50 ML IV SCH ×4 (04:21→21:42)
[2020-08-15] MEDS: NORCO, ANEXSIA 5/325MG TABLET (HYDROcodone/ACETAMINOPHEN) PO PRN ×3 (04:21→21:45)
[2020-08-15 04:26] VITALS: BP 122/73
[2020-08-15] MEDS: LEVOTHYROXINE 50MCG TABLET (0.05MG) PO SCH (05:30)
[2020-08-15 05:39] LABS: HEMATOCRIT 39.9 % (42.0-52.0); MEAN CORPUSCULAR HEMOGLOBIN 30.8 pg (27.0-33.0); MEAN CORPUSCULAR HGB CONC 32.6 g/dl (32.0-36.5); MEAN CORPUSCULAR VOLUME 94.5 fl (80.0-96.0); PLATELET COUNT, AUTOMATED 276 10^3/uL (150-450); RED BLOOD COUNT 4.22 10^6/uL (4.30-6.10); WHITE BLOOD COUNT 12.9 10^3/uL (4.0-10.0)
[2020-08-15 05:51] LABS: FIBRINOGEN 844 MG/DL (221-452)
[2020-08-15 05:58] LABS: EOSINOPHILS 1 % (0-3); LYMPHOCYTES 14 % (16-44); MONOCYTES 1 % (0-5); MYELOCYTES 1 % (0-0); NEUTROPHILS 83 % (28-66)
[2020-08-15 05:59] LABS: GIANT PLATELETS 1+; PLATELET ESTIMATE NORMAL (NORMAL); POLYCHROMASIA 1+
[2020-08-15 06:09] LABS: D-DIMER QUANT > 4000 ng/ml (<500)
[2020-08-15 06:10] LABS: ALBUMIN 2.4 GM/DL (3.2-5.2); ALT/SGPT 30 U/L (12-78); BILIRUBIN,DIRECT 0.2 MG/DL (0.0-0.2); BILIRUBIN,TOTAL 0.3 MG/DL (0.2-1.0); BLOOD UREA NITROGEN 12 MG/DL (7-18); CALCIUM LEVEL 8.6 MG/DL (8.8-10.2); CARBON DIOXIDE LEVEL 33 MEQ/L (21-32); CHLORIDE LEVEL 100 MEQ/L (98-107); CPK CREATINE PHOSPHOKINASE 86 U/L (39-308); CREATININE FOR GFR 1.08 MG/DL (0.70-1.30); FERRITIN 167 NG/ML (26-388); GLOMERULAR FILTRATION RATE > 60.0 (>49); GLUCOSE, FASTING 119 MG/DL (70-100); LDH LACTATE DEHYDROGENASE 224 U/L (87-241); POTASSIUM SERUM 3.6 MEQ/L (3.5-5.1); SODIUM LEVEL 139 MEQ/L (136-145)
[2020-08-15] MEDS: ADVAIR HFA 115/21MCG INHALER INH SCH ×2 (07:15→20:24)
[2020-08-15] MEDS: FENOFIBRATE 145 MG TAB (TRICOR) PO SCH ×2 (07:43→08:11)
[2020-08-15] MEDS: SENOKOT S TAB PO SCH ×3 (07:43→20:50)
[2020-08-15] MEDS: CLOPIDOGREL 75 MG TAB PO SCH ×2 (07:43→08:11)
[2020-08-15] MEDS: PANTOPRAZOLE 40MG TAB (PROTONIX) PO SCH ×2 (07:43→08:11)
[2020-08-15] MEDS: ASPIRIN 81 MG ENTERIC TAB PO SCH ×2 (07:43→08:11)
[2020-08-15] MEDS: guaiFENesin ER 600 MG TAB PO SCH ×3 (07:44→20:49)
[2020-08-15] MEDS: MULTIVITAMINS/MINERALS THERAP 1 TAB PO SCH ×2 (07:44→08:11)
[2020-08-15] MEDS: FOLIC ACID 1 MG TAB PO SCH ×2 (07:44→08:11)
[2020-08-15] MEDS: METOPROLOL SUCC *XL* 25MG TAB (TopROL *XL*) PO SCH ×2 (07:47→08:11)
[2020-08-15] MEDS: FLUTICASONE PROP 0.05% NASAL SPRAY 16 GM (FLONASE) NARES SCH (07:48)
[2020-08-15 08:16] VITALS: BP 112/72
--- NOTE | 2020-08-15 08:46 | REP ---
INDICATION: abd pains. COMPARISON: None. TECHNIQUE: Upright view of the lower chest/upper abdomen and supine view of the abdomen and pelvis. FINDINGS: Dilated air-filled small bowel consistent with small bowel obstruction. No free air to suggest perforation. IMPRESSION: Findings compatible with small-bowel obstruction. <Electronically signed by Nghia Garza > 08/15/20 0816
[2020-08-15] MEDS: KETOROLAC 30 MG/ML 1ML VIAL IV PRN (08:55)
[2020-08-15] MEDS: KCL 10MEQ IN D5/0.45NS 1000ML 1,000 ML IV SCH ×2 (10:50→21:42)
--- NOTE | 2020-08-15 11:20 | IPNPDOC ---
Text Note Date of Service The patient was seen on 08/15/20. NOTE THIS IS A TELEMEDICINE VISIT Overnight he is starting to have increased abd pains again. No nausea, emesis, or fevers. He is having a couple more BMs also. I ordered an xray this am that is suspicious for a SBO, but it is most likely a post-op ileus. VSSAF NAD drain is "pink" labs - below A) 69y/o male with perforated appendix and COVID +, s/p Lap appy 08/10, and compl etion lap appy 08/13 post-op ileus P) npo will place NGT if he starts to have some nausea monitor labs plan on d/c home once ileus resolves Vito Lock DO VS,Roman, I+O VS, Roman, I+O Laboratory Tests 08/15/20 05:18 Vital Signs Date Time Temp Pulse Resp B/P (MAP) Pulse Ox O2 Delivery O2 Flow Rate FiO2 08/15/20 08:16 89 20 112/72 (85) 88 Room Air 08/15/20 04:26 97.2 08/14/20 04:00 4.0 I&O- Last 24 Hours up to 6 AM 08/15/20 06:00 Intake Total 1660 ml Output Total 785 ml Balance 875 ml FELICIA LOCK DO Aug 15, 2020 11:20
[2020-08-15 14:00] VITALS: BP 117/75
--- NOTE | 2020-08-15 19:47 | IPNPDOC ---
Date Seen The patient was seen on 08/15/20. Progress Note SUBJECTIVE:Patient is a 69-year-old male with a PMHx of CAD s/p Stent (2013), PVD s/p L femoral endarterectomy (2019), HTN, DLP, COPD, Laryngeal CA (follows with Dr. Nunez), Hypothyroidism, who presented to the emergency room with complaints of abdominal pain. Emergency room, patient was found to have acute appendicitis and was imaged surgical service for further evaluation and treatment. Patient was taken to the OR immediately. Hospitalist service was consulted for medical management after he was found to be COVID19 positive. Patient was seen and examined at the bedside. Patient reports that he has had an uneventful evening. Reports that his abdominal pain is doing significantly better. Has not experience any nausea, vomiting or stability to pass gas. Has not yet had a bowel movement. Denies any urinary discomfort. Has not spent any chest pain or palpitations. No cough or shortness of breath. OBJECTIVE PHYSICAL EXAMINATION: VITAL SIGNS: please see below General: NAD, comfortable HEENT: PERRLA, EOMI, sclerae clear Neck: supple, normal ROM, no JVD Respiratory: lungs CTAB, no wheeze, no rales, no crackles CVS: RRR, normal S1, S2, no murmurs Abdo: IESHA drain in place, LLQ. Abdo firm, tender to palpation diffusely. Dressings are clean and intact. Extremities: no edema, pulses 2+ MSK: no joint deformities, normal ROM Neuro: no focal neuro deficits, moving all 4 extremities, CN2-12 intact. Strength 5/5 in all 4 extremities. No nystagmus. Psych: calm, cooperative, AAO x 3 LABORATORY DATA, IMAGING STUDIES, MICROBIOLOGY: Please see below. DVT prophylaxis ordered?: TEDs, SCDs. ASSESSMENT AND PLAN: PROBLEMS: Abdominal pain - likely 2/2 perforated appendicitis - He remains afebrile - Physical reveals improvement of abdominal tenderness - Leukocytosis / Will trend inflammatory markers - Imaging noted above - Appendectomy and washout performed by Dr. Lock on 08/10/[address] Bravo 08/13/2020 - Currently on Zosyn (Day #6) as per surgery - Pain control and Diet as per surgery - check bladder scan s/p Lactic acidosis COVID-19 - Reports that his breathing is doing fine and reports that his coughing has improved - Currently is only on 1 L nasal cannula oxygen; will maintain saturation 88-92% (re: COPD) - Inflammatory markers will be trended - Imaging noted - c/w Mucinex CAD s/p Stent (2012) - c/w ASA, Plavix, Atorvastatin PVD s/p L femoral endarterectomy (2018) - c/w ASA, Plavix, Atorvastatin HTN - BP well controlled - Currently not on medications DLP - c/w Atorvastatin and ASA 81 Chronic COPD - No evidence of exacerbation - c/w inhaled therapy as ordered Laryngeal CA - Follows with Dr. Nunez Hypothyroidism - c/w Levothyroxine GI prophylaxis - c/w Protonix DVT prophylaxis - c/w TEDs/Sequentials Disposition: - Appears to be clinically improving - Discharge as per surgery VS, I&O, [facility] Vital Signs/I&O Vital Signs Date Time Temp Pulse Resp B/P (MAP) Pulse Ox O2 Delivery O2 Flow Rate FiO2 08/15/20 16:20 18 Nasal Cannula 2.0 08/15/20 14:00 100.7 97 117/75 (89) 94 I&O- Last 24 Hours up to 6 AM 08/15/20 06:00 Intake Total 1660 ml Output Total 785 ml Balance 875 ml Laboratory Data 24H LABS Laboratory Tests 2 08/15/20 05:18: Neutrophils (%) (Auto) , Nucleated Red Blood Cells % (auto) 0.0, Neutrophils 83H, Lymphocytes (Manual) 14L, Monocytes (Manual) 1, Eosinophils (Manual) 1, Myelocytes 1H, Polychromasia 1+, Giant Platelets 1+, Platelet Estimate NORMAL, Fibrinogen 844H, D-Dimer, Quantitative > 4000H, Anion Gap 6L, Glomerular Filtration Rate > 60.0, Calcium Level 8.6L, Ferritin 167, Total Bilirubin 0.3, Direct Bilirubin 0.2, Aspartate Amino Transf (AST/SGOT) 40H, Alanine Aminotransferase (ALT/SGPT) 30, Alkaline Phosphatase 93, Lactate Dehydrogenase 224, Total Creatine Kinase 86, C-Reactive Protein, Quantitative 16.00H, Total Protein 6.0L, Albumin 2.4L, Albumin/Globulin Ratio 0.7 CBC/BMP Laboratory Tests 08/15/20 05:18 Microbiology Microbiology 08/13/20 Gram Stain - Final, Resulted 08/13/20 Body Fluid Culture, Resulted Pending 08/12/20 Gram Stain - Final, Complete 08/12/20 Sputum Culture - Final, Complete 08/12/20 Blood Culture - Preliminary, Resulted No Growth after 72 hours. All specime... 08/12/20 Blood Culture - Preliminary, Resulted No Growth after 72 hours. All specime... CLARITZA LEHMAN MD Aug 15, 2020 19:47
[2020-08-15] MEDS: ATORVASTATIN 20 MG TAB PO SCH (20:49)
[2020-08-15 20:51] VITALS: BP 114/71; O2SAT 98
[2020-08-15] MEDS: LORazepam 2 MG/ML VIAL IV PRN (21:15)
[2020-08-16 00:44] VITALS: O2SAT 94
[2020-08-16] MEDS: PIPERACILLIN/TAZOBACTAM SOD 3.375 GM in D5W MINI-BAG PLUS 50 ML IV SCH ×4 (04:16→22:40)
[2020-08-16 04:20] VITALS: BP 143/78
[2020-08-16] MEDS: NORCO, ANEXSIA 5/325MG TABLET (HYDROcodone/ACETAMINOPHEN) PO PRN ×4 (04:23→22:42)
[2020-08-16] MEDS: LEVOTHYROXINE 50MCG TABLET (0.05MG) PO SCH (05:48)
[2020-08-16 06:23] LABS: BASO # 0.1 10^3/uL (0.0-0.2); BASO % 0.5 % (0.0-1.0); EOS # 0.3 10^3/uL (0.0-0.5); EOS % 2.1 % (0.0-3.0); HEMATOCRIT 39.8 % (42.0-52.0); LYMPH # 1.3 10^3/uL (1.5-5.0); LYMPH % 10.5 % (24.0-44.0); MEAN CORPUSCULAR HEMOGLOBIN 30.4 pg (27.0-33.0); MEAN CORPUSCULAR HGB CONC 32.7 g/dl (32.0-36.5); MEAN CORPUSCULAR VOLUME 93.2 fl (80.0-96.0); MONO # 1.2 10^3/uL (0.0-0.8); MONO % 9.4 % (2.0-8.0); NEUTROPHILS # 9.1 10^3/uL (1.5-8.5); NEUTROPHILS % 74.5 % (36.0-66.0); PLATELET COUNT, AUTOMATED 286 10^3/uL (150-450); RED BLOOD COUNT 4.27 10^6/uL (4.30-6.10); WHITE BLOOD COUNT 12.2 10^3/uL (4.0-10.0)
[2020-08-16 06:35] LABS: FIBRINOGEN 658 MG/DL (221-452)
[2020-08-16 06:43] LABS: ALT/SGPT 24 U/L (12-78); BILIRUBIN,DIRECT 0.1 MG/DL (0.0-0.2); BILIRUBIN,TOTAL 0.4 MG/DL (0.2-1.0); BLOOD UREA NITROGEN 15 MG/DL (7-18); CALCIUM LEVEL 7.8 MG/DL (8.8-10.2); CARBON DIOXIDE LEVEL 32 MEQ/L (21-32); CHLORIDE LEVEL 101 MEQ/L (98-107); CPK CREATINE PHOSPHOKINASE 43 U/L (39-308); CREATININE FOR GFR 1.01 MG/DL (0.70-1.30); FERRITIN 155 NG/ML (26-388); GLOMERULAR FILTRATION RATE > 60.0 (>49); GLUCOSE, FASTING 121 MG/DL (70-100); LDH LACTATE DEHYDROGENASE 174 U/L (87-241); POTASSIUM SERUM 3.8 MEQ/L (3.5-5.1); SODIUM LEVEL 138 MEQ/L (136-145); TOTAL PROTEIN 5.3 GM/DL (6.4-8.2)
[2020-08-16 07:10] LABS: D-DIMER QUANT > 4000 ng/ml (<500)
[2020-08-16] MEDS: ADVAIR HFA 115/21MCG INHALER INH SCH ×2 (07:34→20:05)
[2020-08-16 08:00] VITALS: BP 148/81
[2020-08-16] MEDS: SENOKOT S TAB PO SCH ×2 (08:46→20:09)
[2020-08-16] MEDS: FENOFIBRATE 145 MG TAB (TRICOR) PO SCH (08:54)
[2020-08-16] MEDS: FLUTICASONE PROP 0.05% NASAL SPRAY 16 GM (FLONASE) NARES SCH (08:54)
[2020-08-16] MEDS: guaiFENesin ER 600 MG TAB PO SCH ×2 (08:55→20:04)
[2020-08-16] MEDS: CLOPIDOGREL 75 MG TAB PO SCH (08:55)
[2020-08-16] MEDS: ASPIRIN 81 MG ENTERIC TAB PO SCH (08:55)
[2020-08-16] MEDS: FOLIC ACID 1 MG TAB PO SCH (08:55)
[2020-08-16] MEDS: METOPROLOL SUCC *XL* 25MG TAB (TopROL *XL*) PO SCH (08:55)
[2020-08-16] MEDS: PANTOPRAZOLE 40MG TAB (PROTONIX) PO SCH (08:55)
[2020-08-16] MEDS: MULTIVITAMINS/MINERALS THERAP 1 TAB PO SCH (08:55)
[2020-08-16] MEDS: KCL 10MEQ IN D5/0.45NS 1000ML 1,000 ML IV SCH ×2 (08:56→16:23)
[2020-08-16] MEDS: DICYCLOMINE 10 MG CAP PO SCH ×3 (10:21→20:04)
--- NOTE | 2020-08-16 11:56 | ROOPDOC ---
[facility] Report Of Operation Report of Operation DATE OF PROCEDURE: 08/13/20 PREPROCEDURE DIAGNOSES: Persistent localized peritonitis, incomplete appendectomy. POSTPROCEDURE DIAGNOSES: Appendicitis with perforation and abscess. PROCEDURE: Diagnostic laparoscopy, laparoscopic drainage of abscess, completion appendectomy, epiploic fat plication of the appendiceal stump. SURGEON: Ajay Bravo MD RECORDS CLERK: ANESTHESIA: General Endotracheal Anesthesia. ESTIMATED BLOOD LOSS: Approximately 30 mL. COMPLICATIONS: none. REMARKS: 69 M underwent appendectomy 3 days ago, COVID(+), with intermittent f ever, persistent pain and tenderness over the right lower quadrant area and imaging showing still a remnant of the appendix. PROCEDURE NOTE: . SPECIMEN: remnant of appendix; Gram stain and culture of peritoneal fluid abscess DESCRIPTION OF PROCEDURE: Patient has been kept on Zosyn 3. recent febrile grams IV every 6 hours post appendectomy. He was brought to the operating room, placed supine on the procedure table. Bilateral sequential compression device placed on both lower extremities were DVT prophylaxis. Gen. endotracheal anesthesia started. His left arm is tucked. His drain was removed likewise the postoperative dressings. His abdomen then prepped and draped in the usual sterile fashion using Betadine. On examination, I could feel a hard mass on the right lower quadrant area on palpation with him under general anesthesia. Rest of the abdomen is moderately distended but soft. I entered the abdomen through the prior left upper quadrant port site. This was opened up and a Veress needle inserted. Insufflation started to pressure 15 mmHg. Insufflation is uniform. Using the same incision a 5 mm optical port was placed under direct vision of laparoscope. The area underneath the insertion site is inspected for injury and none was found. On diagnostic laparoscopy, small amount of serous fluid is noted. There is a conglomerate of omentum that is thickened covering small bowel and the area of the cecum, probably the appendix over the right lower quadrant area. Part of the abdominal wall and bladder adherent to this inflammatory mass. There are decubitus exudate as well as purulent fluid in between the loops of bowel and omentum that is covering the area. He was placed on the steep Trendelenburg position tilted towards the left side to allow better visualization. I established my ports. I used a 5 mm left lower quadrant port and a 5 mm port towards the left of the suprapubic area. With this initial ports and the suction device mostly with blunt dissection, the omentum was dissected away from the right lower quadrant and placed away from the bowel and placed over the patient's upper quadrant. The loops of bowel that was adhered together was bluntly dissected this up. The bladder was likewise dissected free as well as the right medial umbilical ligament. I was eventually able to trace the distal bowel to the insertion of the terminal ileum to the cecum. The epiploic appendage over this area appears thickened. Before I could find the prior Endoloop that was used to close the appendix I got into this abscess pocket just inferior and medial to the insertion of the terminal ileum to the cecum where I found some leaked out fecalith as well as a small amount of thick abscess but no gross fecal spillage is noted. I took sample of the fluid over this area and sent this for culture. I worked my way inferiorly and after teasing away the medial umbilical ligament and bladder of this mass I was eventually able to find the appendicular stump and the prior Endoloop. The mesial appendix or was left of it is quite thickened. This seems to come back to the mesentery of the terminal ileum as it attaches to the retroperitoneum. The area of perforation is proximal to the Endoloop. In fact I could not connect the base of the appendix with a Endoloop to the cecum and there is shows some infl ammatory story accidents in between the 2. I proceeded dissecting the retroperitoneal and lateral abdominal wall attachments of the cecum to be able to rotate this. I was then able to create a window between the appendectomy nasal stump and retroperitoneum tracing this to the Of the cecum especially at the area of the perforation is quite thickened the lateral wall appears fairly soft. I think I could make up the remnant of the attachments of the appendix to the cecum without any clear evidence of any fecal leakage. I traced the remnant of the appendix but mostly the remnant of the mesoappendix as it gets closer to the cecum and dissect this away from the attachments of the terminal ileum. I established another port. I used a 12 mm port slightly to the left of the falciform ligament at the epigastric area for my stapler port. I used an echelon 60 mm stapler with a green load and divided the mesoappendix and the appendix together. After this the area was irrigated. I debrided the abscess wall from the cecum and examined the bone out stump or attachment of the appendix. The my estimation the only other choices are to divide the stump but due to the closeness of the insertion of the terminal ileum I would not be able to just divide the cecal wall with a stapler fire. As I am not seeing any gross fecal spillage I used a 20V LOC and put a pursestring around the remnant of the appendix and then grab the nearby epiploic appendage and tacked this over to the abdomen initial stump as an epiploic fat patch. After this the area was again irrigated with about a liter and half of normal saline. I placed a 19 Andrew drain that runs inferior to this and to the right lateral gutter of the cecum. I irrigated and suctioned off the collection around the liver. The omentum was placed back in its anatomic position covering the area around the cecum and small bowel. The abdomen was then deflated all ports were removed. The 12 mm fascial defect was closed with 0 Vicryl in a mattress fashion. Rest of the port sites were closed with 4-0 Monocryl in subcuticular fashion. The drain was sutured in place this was coming out of the left lower quadrant port. Patient tolerated the procedure well. Was promptly awakened, extubated and brought to recovery room in a stable condition. AJAY BRAVO MD Aug 16, 2020 11:56
[2020-08-16 12:28] VITALS: BP 124/72
--- NOTE | 2020-08-16 13:47 | IPNPDOC ---
Text Note Date of Service The patient was seen on 08/16/20. NOTE THIS IS A TELEMEDICINE VISIT No acute events overnight. No nausea, emesis, or fevers. He is having a couple more BMs also that are all loose. I started him on clq diet last night and he is tolerating that. VSSAF NAD drain is "pink" labs - below A) 69y/o male with perforated appendix and COVID +, s/p Lap appy 08/10, and completion lap appy 08/13 post-op ileus that is resolving P) reg diet monitor labs plan on d/c home once ileus resolves Vito Lock DO VS,Fishbone, I+O VS, Fishbone, I+O Laboratory Tests 08/16/20 06:03 Vital Signs Date Time Temp Pulse Resp B/P (MAP) Pulse Ox O2 Delivery O2 Flow Rate FiO2 08/16/20 12:28 97.5 75 17 124/72 (89) 92 Room Air 08/16/20 04:20 2.0 I&O- Last 24 Hours up to 6 AM 08/16/20 06:00 Intake Total 1400 ml Output Total 570 ml Balance 830 ml FELICIA LOCK DO Aug 16, 2020 13:47
[2020-08-16 20:00] VITALS: BP 125/69
[2020-08-16] MEDS: LORazepam 2 MG/ML VIAL IV PRN (20:04)
[2020-08-16] MEDS: BENZONATATE 100 MG CAP PO PRN (20:04)
[2020-08-16] MEDS: ATORVASTATIN 20 MG TAB PO SCH (20:05)
[2020-08-17] MEDS: KCL 10MEQ IN D5/0.45NS 1000ML 1,000 ML IV SCH ×3 (04:08→16:22)
[2020-08-17] MEDS: PIPERACILLIN/TAZOBACTAM SOD 3.375 GM in D5W MINI-BAG PLUS 50 ML IV SCH ×4 (04:08→22:16)
[2020-08-17 04:12] VITALS: BP 133/74
[2020-08-17] MEDS: NORCO, ANEXSIA 5/325MG TABLET (HYDROcodone/ACETAMINOPHEN) PO PRN ×3 (05:02→20:00)
[2020-08-17] MEDS: LEVOTHYROXINE 50MCG TABLET (0.05MG) PO SCH (06:00)
[2020-08-17] MEDS: ADVAIR HFA 115/21MCG INHALER INH SCH ×2 (07:08→19:59)
[2020-08-17 07:12] LABS: BASO # 0.1 10^3/uL (0.0-0.2); BASO % 0.4 % (0.0-1.0); EOS # 0.3 10^3/uL (0.0-0.5); EOS % 2.6 % (0.0-3.0); HEMATOCRIT 38.6 % (42.0-52.0); HEMOGLOBIN 12.5 g/dl (13.5-17.5); LYMPH % 7.8 % (24.0-44.0); MEAN CORPUSCULAR HEMOGLOBIN 30.5 pg (27.0-33.0); MEAN CORPUSCULAR HGB CONC 32.4 g/dl (32.0-36.5); MEAN CORPUSCULAR VOLUME 94.1 fl (80.0-96.0); MONO # 0.8 10^3/uL (0.0-0.8); MONO % 6.5 % (2.0-8.0); NEUTROPHILS # 10.3 10^3/uL (1.5-8.5); NEUTROPHILS % 79.8 % (36.0-66.0); PLATELET COUNT, AUTOMATED 295 10^3/uL (150-450); WHITE BLOOD COUNT 12.9 10^3/uL (4.0-10.0)
[2020-08-17 07:22] LABS: FIBRINOGEN 586 MG/DL (221-452)
[2020-08-17 07:40] LABS: ALBUMIN 2.1 GM/DL (3.2-5.2); ALT/SGPT 26 U/L (12-78); BILIRUBIN,DIRECT 0.1 MG/DL (0.0-0.2); BILIRUBIN,TOTAL 0.4 MG/DL (0.2-1.0); BLOOD UREA NITROGEN 9 MG/DL (7-18); CALCIUM LEVEL 8.1 MG/DL (8.8-10.2); CARBON DIOXIDE LEVEL 31 MEQ/L (21-32); CHLORIDE LEVEL 102 MEQ/L (98-107); CPK CREATINE PHOSPHOKINASE 48 U/L (39-308); CREATININE FOR GFR 0.77 MG/DL (0.70-1.30); FERRITIN 148 NG/ML (26-388); GLOMERULAR FILTRATION RATE > 60.0 (>49); GLUCOSE, FASTING 119 MG/DL (70-100); LDH LACTATE DEHYDROGENASE 186 U/L (87-241); POTASSIUM SERUM 3.7 MEQ/L (3.5-5.1); SODIUM LEVEL 138 MEQ/L (136-145); TOTAL PROTEIN 5.4 GM/DL (6.4-8.2)
[2020-08-17 08:00] VITALS: BP 130/74; O2SAT 94
[2020-08-17 08:21] LABS: D-DIMER QUANT > 4000.0 ng/ml (<500)
[2020-08-17] MEDS: DICYCLOMINE 10 MG CAP PO SCH ×3 (08:52→20:01)
[2020-08-17] MEDS: FENOFIBRATE 145 MG TAB (TRICOR) PO SCH (08:52)
[2020-08-17] MEDS: PANTOPRAZOLE 40MG TAB (PROTONIX) PO SCH (08:52)
[2020-08-17] MEDS: FOLIC ACID 1 MG TAB PO SCH (08:52)
[2020-08-17] MEDS: CLOPIDOGREL 75 MG TAB PO SCH (08:52)
[2020-08-17] MEDS: ASPIRIN 81 MG ENTERIC TAB PO SCH (08:52)
[2020-08-17] MEDS: guaiFENesin ER 600 MG TAB PO SCH ×2 (08:53→20:01)
[2020-08-17] MEDS: MULTIVITAMINS/MINERALS THERAP 1 TAB PO SCH (08:53)
[2020-08-17] MEDS: METOPROLOL SUCC *XL* 25MG TAB (TopROL *XL*) PO SCH (08:54)
[2020-08-17] MEDS: SENOKOT S TAB PO SCH ×2 (08:55→20:02)
[2020-08-17] MEDS: FLUTICASONE PROP 0.05% NASAL SPRAY 16 GM (FLONASE) NARES SCH (08:55)
[2020-08-17] MEDS: GASTROGRAFIN SOLUTION 30ML PO SCH ×2 (10:32→11:06)
[2020-08-17 12:00] VITALS: O2SAT 94
[2020-08-17] MEDS ORDERED: ISOVUE-370 76% 100ML VIAL As Ordered ONE (12:24)
[2020-08-17 14:00] VITALS: BP 104/60
--- NOTE | 2020-08-17 15:47 | REP ---
INDICATION: leukocytosis, abd pain, r/o abscess. Persistent white count. Status post reoperation for appendicitis. COMPARISON: Comparison CT study August 13, 2020.. TECHNIQUE: Helical scanning is acquired following the intravenous injection of 100 mL of Isovue 370. FINDINGS: Preliminary digital boiler setter radiograph demonstrates dilated small bowel loops in the central abdomen. There is a surgical drain. The lung bases demonstrate platelike atelectasis in the right base. No pleural effusion is seen. Fatty infiltration of the liver is again noted. Spleen is unremarkable. There are dilated small bowel loops several of which demonstrate mural thickening in the upper abdomen. The colon is not distended. Small bowel obstructive pattern. There is no evidence of free air. A surgical drain courses into the right lower quadrant. There is some mural thickening in the cecum. Right lower quadrant phlegmonous reaction is seen. No un contained air is seen. There is 1 small anterior fluid collection in the right lower quadrant medial to the cecum measuring 3.2 x 3.9 x 2.5 cm in diameter. This has a very thin peripheral enhancing margin. Developing abscess is suspected. No other abnormal fluid collection is seen. IMPRESSION: Postoperative changes. Mural thickening in a dilated loops of small bowel in the right lower quadrant. Small bowel obstruction pattern. There is a 3 cm fluid collection in the right lower quadrant anteriorly which could be a developing abscess. <Electronically signed by Gary Miller > 08/17/20 [id number]
--- NOTE | 2020-08-17 16:08 | IPNPDOC ---
Text Note Date of Service The patient was seen on 08/17/20. NOTE THIS IS A TELEMEDICINE VISIT No acute events overnight. No nausea, emesis, or fevers. He is having a couple more BMs also that are all loose. He is tolerating reg diet. Pain is still present in the RLQ but it is tolerable. I ordered a CT this am due to leukocytosis to look for fluid collections, and there is a small one in the RLQ. I spoke with radiology and they can aspirate it tomorrow. I explained this to him, and he completely understands. VSSAF NAD drain is "serous" labs - below A) 69y/o male with perforated appendix and COVID +, s/p Lap appy 08/10, and completion lap appy 08/13 post-op ileus that is resolving persistent leukocytosis P) reg diet monitor labs abx drainage RLQ fluid collection tomorrow, and then plan on d/c home. Vito Lock DO VS,Stephaniee, I+O VS, Stephaniee, I+O Laboratory Tests 08/17/20 06:31 Vital Signs Date Time Temp Pulse Resp B/P (MAP) Pulse Ox O2 Delivery O2 Flow Rate FiO2 08/17/20 14:00 98.3 79 18 104/60 (75) 94 Room Air 08/16/20 04:20 2.0 I&O- Last 24 Hours up to 6 AM 08/17/20 06:00 Intake Total 1100 ml Output Total 370 ml Balance 730 ml FELICIA LOCK DO Aug 17, 2020 16:09
[2020-08-17 20:00] VITALS: O2SAT 98
[2020-08-17] MEDS: ATORVASTATIN 20 MG TAB PO SCH (20:01)
[2020-08-17 20:06] VITALS: BP 144/68
[2020-08-17] MEDS: BENZONATATE 100 MG CAP PO PRN (20:41)
[2020-08-17] MEDS: LORazepam 2 MG/ML VIAL IV PRN (20:41)
[2020-08-18] VITALS (8 sets, daily range): BP systolic 123–139; BP diastolic 63–71; O2SAT 93–96
[2020-08-18] MEDS: NORCO, ANEXSIA 5/325MG TABLET (HYDROcodone/ACETAMINOPHEN) PO PRN (02:02)
[2020-08-18] MEDS: PIPERACILLIN/TAZOBACTAM SOD 3.375 GM in D5W MINI-BAG PLUS 50 ML IV SCH ×2 (03:15→10:29)
[2020-08-18] MEDS: KCL 10MEQ IN D5/0.45NS 1000ML 1,000 ML IV SCH (03:16)
[2020-08-18] MEDS: LEVOTHYROXINE 50MCG TABLET (0.05MG) PO SCH (06:09)
[2020-08-18] MEDS: ACETAMINOPHEN TAB 650MG DOSE (2X325MG) PO PRN (06:28)
[2020-08-18 06:45] LABS: HEMATOCRIT 37.4 % (42.0-52.0); MEAN CORPUSCULAR HEMOGLOBIN 30.5 pg (27.0-33.0); MEAN CORPUSCULAR HGB CONC 32.1 g/dl (32.0-36.5); MEAN CORPUSCULAR VOLUME 94.9 fl (80.0-96.0); PLATELET COUNT, AUTOMATED 377 10^3/uL (150-450); RED BLOOD COUNT 3.94 10^6/uL (4.30-6.10); WHITE BLOOD COUNT 10.7 10^3/uL (4.0-10.0)
[2020-08-18 07:12] LABS: ALBUMIN 2.1 GM/DL (3.2-5.2); ALT/SGPT 23 U/L (12-78); BILIRUBIN,TOTAL 0.3 MG/DL (0.2-1.0); BLOOD UREA NITROGEN 7 MG/DL (7-18); CALCIUM LEVEL 8.7 MG/DL (8.8-10.2); CARBON DIOXIDE LEVEL 31 MEQ/L (21-32); CHLORIDE LEVEL 102 MEQ/L (98-107); CREATININE FOR GFR 0.95 MG/DL (0.70-1.30); GLOMERULAR FILTRATION RATE > 60.0 (>49); GLUCOSE, FASTING 111 MG/DL (70-100); POTASSIUM SERUM 3.8 MEQ/L (3.5-5.1); SODIUM LEVEL 138 MEQ/L (136-145); TOTAL PROTEIN 6.3 GM/DL (6.4-8.2)
[2020-08-18] MEDS ORDERED: NORCO, ANEXSIA 5/325MG TABLET (HYDROcodone/ACETAMINOPHEN) PO PRN ×2 (07:45)
[2020-08-18] MEDS: ADVAIR HFA 115/21MCG INHALER INH SCH (07:55)
[2020-08-18] MEDS: FENOFIBRATE 145 MG TAB (TRICOR) PO SCH (08:27)
[2020-08-18] MEDS: ASPIRIN 81 MG ENTERIC TAB PO SCH (08:27)
[2020-08-18] MEDS: guaiFENesin ER 600 MG TAB PO SCH (08:27)
[2020-08-18] MEDS: DICYCLOMINE 10 MG CAP PO SCH (08:27)
[2020-08-18] MEDS: CLOPIDOGREL 75 MG TAB PO SCH (08:27)
[2020-08-18] MEDS: MULTIVITAMINS/MINERALS THERAP 1 TAB PO SCH (08:27)
[2020-08-18] MEDS: PANTOPRAZOLE 40MG TAB (PROTONIX) PO SCH (08:27)
[2020-08-18] MEDS: SENOKOT S TAB PO SCH (08:29)
[2020-08-18] MEDS: METOPROLOL SUCC *XL* 25MG TAB (TopROL *XL*) PO SCH (08:29)
[2020-08-18] MEDS: FOLIC ACID 1 MG TAB PO SCH (08:29)
[2020-08-18] MEDS: FLUTICASONE PROP 0.05% NASAL SPRAY 16 GM (FLONASE) NARES SCH (08:30)
[2020-08-18] MEDS ORDERED: ENOXAPARIN 40MG/0.4ML SYRINGE (J1650 PER 10MG) SC SCH (09:00)
[2020-08-18] MEDS ORDERED: HYDR-3715 PO (09:31)
[2020-08-18] MEDS ORDERED: SULF1TAB93 PO (09:31)
--- NOTE | 2020-08-18 13:27 | IPNPDOC ---
Date Seen The patient was seen on 08/18/20. Progress Note SUBJECTIVE: Patient is a 69-year-old male with a PMHx of CAD s/p Stent (2013), PVD s/p L femoral endarterectomy (2019), HTN, DLP, COPD, Laryngeal CA (follows with Dr. Nunez), Hypothyroidism, who presented to the emergency room with complaints of abdominal pain. Emergency room, patient was found to have acute appendicitis and was imaged surgical service for further evaluation and treatment. Patient was taken to the OR immediately. Hospitalist service was consulted for medical management after he was found to be COVID19 positive. Patient was seen and examined at bedside this morning. Doing well, denies any shortness of breath, chest pain, nausea, vomiting, diarrhea or chills. Patient has been afebrile. Vital signs within normal limits. He saturating about 95% on room air. Patient still has IESHA drain in place. Per RN. Plan is for patient to receive CT-guided drainage of an intra-abdominal collection. Surgical management is by Dr. Lock. OBJECTIVE PHYSICAL EXAMINATION: ITAL SIGNS: please see below General: NAD, comfortable HEENT: PERRLA, EOMI, sclerae clear Neck: supple, normal ROM, no JVD Respiratory: lungs CTAB, no wheeze, no rales, no crackles CVS: RRR, normal S1, S2, no murmurs Abdo: IESHA drain in place, LLQ. Abdo firm, tender to palpation diffusely. Dressings are clean and intact. Extremities: no edema, pulses 2+ MSK: no joint deformities, normal ROM Neuro: no focal neuro deficits, moving all 4 extremities, CN2-12 intact. Strength 5/5 in all 4 extremities. No nystagmus. Psych: calm, cooperative, AAO x 3 LABORATORY DATA, IMAGING STUDIES, MICROBIOLOGY: Please see below. LABORATORY DATA, IMAGING STUDIES, MICROBIOLOGY: Please see below. CT abdo with IV and oral contrast (08/17/20): Postoperative changes. Mural thickening in a dilated loops of small bowel in the right lower quadrant. Small bowel obstruction pattern. There is a 3 cm fluid collection in the right lower quadrant anteriorly which could be a developing abscess. DVT prophylaxis ordered?: SCDs, TEDs. lovenox resumed PROBLEMS: Abdominal pain - likely 2/2 perforated appendicitis - He remains afebrile - Physical reveals improvement of abdominal tenderness - Leukocytosis / Will trend inflammatory markers - Imaging noted above - 3cm intraabdominal collection, pending for CT guided drainage - Appendectomy and washout performed by Dr. Lock on 08/10/[address] Bravo 08/13/2020 - Currently on Zosyn as per surgery - Pain control and Diet as per surgery - per Dr. Lock patient is for DC today after CT drainage s/p Lactic acidosis COVID-19 - Reports that his breathing is doing fine and reports that his coughing has improved - Currently is RA, saturating > 93%; - D dimer elevated 08/01 post op status - denies SOB, CP - Imaging noted - c/w Mucinex CAD s/p Stent (2012) - c/w ASA, Plavix, Atorvastatin PVD s/p L femoral endarterectomy (2018) - c/w ASA, Plavix, Atorvastatin HTN - BP well controlled - Currently not on medications DLP - c/w Atorvastatin and ASA 81 Chronic COPD - No evidence of exacerbation - c/w inhaled therapy as ordered Laryngeal CA - Follows with Dr. Nunez Hypothyroidism - c/w Levothyroxine GI prophylaxis - c/w Protonix DVT prophylaxis - c/w TEDs/Sequentials Disposition: - Appears to be clinically improving - Discharge as per surgery VS, I&O, 24H, Fishbone Vital Signs/I&O Vital Signs Date Time Temp Pulse Resp B/P (MAP) Pulse Ox O2 Delivery O2 Flow Rate FiO2 08/18/20 08:58 18 08/18/20 08:29 72 130/71 08/18/20 08:28 Room Air 08/18/20 08:00 93 08/18/20 06:11 97.8 08/16/20 04:20 2.0 I&O- Last 24 Hours up to 6 AM 08/18/20 06:00 Intake Total 2880 ml Output Total 280 ml Balance 2600 ml Laboratory Data 24H LABS Laboratory Tests 2 08/18/20 06:09: Nucleated Red Blood Cells % (auto) 0.0, Anion Gap 5L, Glomerular Filtration Rate > 60.0, Calcium Level 8.7L, Total Bilirubin 0.3, Aspartate Amino Transf (AST/SGOT) 30, Alanine Aminotransferase (ALT/SGPT) 23, Alkaline Phosphatase 84, Total Protein 6.3L, Albumin 2.1L, Albumin/Globulin Ratio 0.5 CBC/BMP Laboratory Tests 08/18/20 06:09 Microbiology Microbiology 08/13/20 Gram Stain - Final, Complete 08/13/20 Body Fluid Culture - Final, Complete Escherichia Coli Escherichia Coli#2 Enterococcus Durans 08/12/20 Gram Stain - Final, Complete 08/12/20 Sputum Culture - Final, Complete 08/12/20 Blood Culture - Final, Complete NO GROWTH AFTER 5 DAYS 08/12/20 Blood Culture - Final, Complete NO GROWTH AFTER 5 DAYS CLARITZA LEHMAN MD Aug 18, 2020 13:27
[2020-08-18] MEDS ORDERED: LORazepam 2 MG/ML VIAL As Ordered ONE (14:28)
[2020-08-18] MEDS: LORazepam 2 MG/ML VIAL IV PRN (14:34)
[2020-08-18] MEDS ORDERED: LIDOCAINE 1% MDV 20ML VIAL As Ordered ONE (14:55)
--- NOTE | 2020-08-18 16:49 | REP ---
INDICATION: RLQ FLUID COLLECTION/ABSCESS DRAIN. Patient is status post laparoscopic surgery for perforated appendicitis. CT study August 17, 2020 shows a fluid collection adjacent to the cecum. Is referred for CT-guided aspiration. Cavity was not felt to be large enough to accommodate a pigtail drainage catheter. COMPARISON: CT study August 17, 2020.. TECHNIQUE: High patient was interviewed and informed consent was obtained by JOHN Carlson. The procedure was performed by JOHN Carlson under my personal supervision.. Patient was placed on the CT scanner table and preliminary CT scanning was accomplished. This identifies the target triangular fluid collection in the right mid abdomen. Utilizing aseptic precautions and 10 mL of lidocaine for local anesthetic, a 19 gauge introducer needle was passed into the fluid collection without technical difficulty. A total of only 5 mL of low viscosity yellow-colored fluid was retrieved. The patient tolerated the procedure well. The needle was removed. Postprocedure imaging shows that the cavity is partially decompressed. FINDINGS: 5 mL of low viscosity yellow fluid was retrieved. Cavity was partially decompressed. Patient tolerated the procedure well. IMPRESSION: CT-guided abdominal fluid collection aspiration. <Electronically signed by Gary Miller > 08/18/20 [id number]
== END 2020-08-18 16:47 | disposition home health service (06) | DRG 710 ==
LOC: M ED 06:49 → M ED INP 10:53 → M 4MAIN 12:03
PROVIDERS: ADMIT Surgery; ATTEND Surgery
PROC: 0DTJ4ZZ Resection of Appendix, Percutaneous Endoscopic Approach (ICD-10-PCS; principal; 2020-08-10 16:00)
PROC: 0DTJ4ZZ Resection of Appendix, Percutaneous Endoscopic Approach (ICD-10-PCS; 2020-08-13)
PROC: 0D9 Gastrointestinal System, Drainage (ICD-10-PCS; 2020-08-13)
PROC: 0W9F3ZZ Drainage of Abdominal Wall, Percutaneous Approach (ICD-10-PCS; 2020-08-18)
DX: A41.9 Sepsis, unspecified organism (principal); U07.1 COVID-19; J44.9 Chronic obstructive pulmonary disease, unspecified; K35.32 Acute appendicitis with perforation, localized peritonitis, and gangrene, without abscess; K56.7 Ileus, unspecified; I10 Essential (primary) hypertension; E03.9 Hypothyroidism, unspecified; E78.5 Hyperlipidemia, unspecified; I73.9 Peripheral vascular disease, unspecified; I25.10 Atherosclerotic heart disease of native coronary artery without angina pectoris; F10.10 Alcohol abuse, uncomplicated; Z95.2 Presence of prosthetic heart valve; Z85.21 Personal history of malignant neoplasm of larynx; Z87.891 Personal history of nicotine dependence; K91.89 Other postprocedural complications and disorders of digestive system; K35.33 Acute appendicitis with perforation, localized peritonitis, and gangrene, with abscess

== ENCOUNTER → 2020-10-02 | Outpatient (CLI) | payer BC ==
[~2020-10-02] MED LIST changes: +ASPI81TA26 PO; +ATOR80TA59 PO; +BENZ-18 PO; +HYDR-3715 PO; +SULF1TAB93 PO
--- NOTE | 2020-10-02 11:17 | REP ---
INDICATION: SOLITARY PULMONARY NODULE COMPARISON: 08/12/2020-10/14/2016 TECHNIQUE: Axial noncontrast images from the thoracic inlet to the upper abdomen with coronal and sagittal reformations. This CT examination was performed using the following dose reduction techniques: Automated exposure control, adjustment of mA and/or kv according to the patient's size, and use of iterative reconstruction technique. FINDINGS: Chronic emphysematous changes are appreciated primarily noted in the upper lung zones (right greater than left). Minimal linear scarring in the lingula and right middle lobe are again identified. There is a chronic calcification versus small foreign body which appears to be within the proximal aspect of the right middle lobe bronchus (series 201, images 55-58) causing associated adjacent chronic scarring. The previously identified 3 mm nodule in the left lower lobe (03/23/2020) appears to have resolved. No acute consolidation, new significant nodule or mass lesion. No effusion. No pneumothorax. Mediastinum demonstrates atherosclerotic changes to the thoracic aorta and coronary arteries without aortic aneurysm or cardiomegaly. No pericardial effusion. No significant adenopathy. Surrounding musculoskeletal structures are intact. Limited upper abdomen demonstrates hepatosteatosis. IMPRESSION: 1. Chronic changes similar to prior examination as described above. 2. The most recent previous examination demonstrated scattered atelectasis which has resolved, and a prior left lower lobe pulmonary nodule has resolved as well. 3. No acute mediastinal or pleuroparenchymal process appreciated. <Electronically signed by Nghia Garza > 10/02/20 [id number]
== END ==
LOC: M RAD 10:13
PROVIDERS: ATTEND Internal Medicine Pulmonary Disease
DX: R91.1 Solitary pulmonary nodule (principal)

== ENCOUNTER → 2021-06-13 | Outpatient (REF) | payer BC ==
[~2021-06-13] MED LIST changes: +BACTDSTA PO; -SULF1TAB93 PO
[2021-06-13 13:50] LABS: CHOLESTEROL RISK RATIO 3.196 (<5)
== END ==
LOC: M LABDRWAD 12:47
PROVIDERS: ATTEND Nurse Practitioner Adult Health
DX: E78.2 Mixed hyperlipidemia (principal); I25.10 Atherosclerotic heart disease of native coronary artery without angina pectoris; I73.9 Peripheral vascular disease, unspecified

== ENCOUNTER → 2021-08-21 | Outpatient (REF) | payer BC ==
[2021-08-21 13:09] LABS: CHOLESTEROL RISK RATIO 2.862 (<5)
== END ==
LOC: M LABDRWAD 11:50
PROVIDERS: ATTEND Internal Medicine Cardiovascular Disease
DX: E78.2 Mixed hyperlipidemia (principal); I25.10 Atherosclerotic heart disease of native coronary artery without angina pectoris

== ENCOUNTER → 2021-09-05 | Outpatient (CLI) | payer BC | LOC: M RAD 09:50 | PROVIDERS: ATTEND Internal Medicine | DX: K76.0 Fatty (change of) liver, not elsewhere classified (principal) ==

== ENCOUNTER → 2021-09-10 | Outpatient (REF) | payer BC ==
[2021-09-10 12:53] LABS: CHOLESTEROL RISK RATIO 2.729 (<5)
== END ==
LOC: M LABDRWAD 12:23
PROVIDERS: ATTEND Internal Medicine Cardiovascular Disease
DX: I25.10 Atherosclerotic heart disease of native coronary artery without angina pectoris (principal); E78.2 Mixed hyperlipidemia; I73.9 Peripheral vascular disease, unspecified

== ENCOUNTER → 2021-10-10 | Outpatient (CLI) | payer BC | LOC: M RAD 08:13 | PROVIDERS: ATTEND Internal Medicine Pulmonary Disease | DX: Z87.891 Personal history of nicotine dependence (principal) ==

== ENCOUNTER → 2022-11-12 | Outpatient (REF) | payer MEDICARE ==
[~2022-11-12] MED LIST changes: +FLUT50SP17 INH; -FLUTISP INH
[2022-11-12 12:08] LABS: BLOOD UREA NITROGEN 11 MG/DL (9-23); CREATININE FOR GFR 0.99 MG/DL (0.70-1.30); GLOMERULAR FILTRATION RATE > 60.0 (>42)
== END ==
LOC: M LABDRWAD 11:46
PROVIDERS: ATTEND Physician Assistant
DX: I70.213 Atherosclerosis of native arteries of extremities with intermittent claudication, bilateral legs (principal)

== ENCOUNTER → 2022-11-18 | Outpatient (CLI) | payer MEDICARE ==
[~2022-11-18] MED LIST changes: +ISOVUE-370 76% 100ML VIAL As Ordered ONE
== END ==
LOC: M RAD 08:43
PROVIDERS: ATTEND Surgery Vascular Surgery
DX: I70.213 Atherosclerosis of native arteries of extremities with intermittent claudication, bilateral legs (principal)
CPT/HCPCS: 75635; Q9967

== ENCOUNTER → 2022-12-27 | Outpatient (REF) | payer MEDICARE ==
[~2022-12-27] MED LIST changes: -ISOVUE-370 76% 100ML VIAL As Ordered ONE
[2022-12-27 13:20] LABS: HEMATOCRIT 47.9 % (42.0-52.0); HEMOGLOBIN 15.4 g/dl (13.5-17.5); MEAN CORPUSCULAR HGB CONC 32.2 g/dl (32.0-36.5); MEAN CORPUSCULAR VOLUME 93.2 fl (80.0-96.0); PLATELET COUNT, AUTOMATED 188 10^3/uL (150-450); RED BLOOD COUNT 5.14 10^6/uL (4.30-6.10); WHITE BLOOD COUNT 4.2 10^3/uL (4.0-10.0)
[2022-12-27 13:25] LABS: BLOOD UREA NITROGEN 10 MG/DL (9-23); CALCIUM LEVEL 9.9 MG/DL (8.3-10.6); CARBON DIOXIDE LEVEL 30 MMOL/L (20-31); CHLORIDE LEVEL 101 MMOL/L (98-107); GLOMERULAR FILTRATION RATE > 60.0 (>42); GLUCOSE, FASTING 82 MG/DL (74-106); POTASSIUM SERUM 4.5 MMOL/L (3.5-5.1); SODIUM LEVEL 138 MMOL/L (136-145)
[2022-12-27 13:57] LABS: INR 0.89; PROTHROMBIN TIME 12.2 SECONDS (12.5-14.5)
[2022-12-27 13:58] LABS: PARTIAL THROMBOPLASTIN TIME 29.5 SECONDS (24.8-34.2)
== END ==
LOC: M LABDRWAD 12:37
PROVIDERS: ATTEND Physician Assistant
DX: I70.211 Atherosclerosis of native arteries of extremities with intermittent claudication, right leg (principal)

== ENCOUNTER → 2023-03-06 | Outpatient (REF) | payer MEDICARE ==
[2023-03-06 13:52] LABS: PROTHROMBIN TIME 12.9 SECONDS (12.5-14.5)
[2023-03-06 13:55] LABS: HEMATOCRIT 46.7 % (42.0-52.0); HEMOGLOBIN 15.1 g/dl (13.5-17.5); MEAN CORPUSCULAR HEMOGLOBIN 30.7 pg (27.0-33.0); MEAN CORPUSCULAR HGB CONC 32.3 g/dl (32.0-36.5); MEAN CORPUSCULAR VOLUME 94.9 fl (80.0-96.0); PLATELET COUNT, AUTOMATED 166 10^3/uL (150-450); RED BLOOD COUNT 4.92 10^6/uL (4.30-6.10); WHITE BLOOD COUNT 6.9 10^3/uL (4.0-10.0)
[2023-03-06 14:00] LABS: ALBUMIN 3.8 G/DL (3.2-5.2); ALKALINE PHOSPHATASE 78 U/L (46-116); ALT/SGPT 29 U/L (7.0-40); AST/SGOT 41 U/L (<34); BILIRUBIN,TOTAL 0.4 MG/DL (0.3-1.2); BLOOD UREA NITROGEN 10 MG/DL (9-23); CALCIUM LEVEL 9.3 MG/DL (8.3-10.6); CARBON DIOXIDE LEVEL 27 MMOL/L (20-31); CHLORIDE LEVEL 105 MMOL/L (98-107); GLOMERULAR FILTRATION RATE > 60.0 (>42); GLUCOSE, FASTING 111 MG/DL (74-106); POTASSIUM SERUM 4.3 MMOL/L (3.5-5.1); SODIUM LEVEL 140 MMOL/L (136-145); TOTAL PROTEIN 6.7 G/DL (5.7-8.2)
== END ==
LOC: M LABDRWAD 12:40
PROVIDERS: ATTEND Surgery Vascular Surgery
DX: I70.201 Unspecified atherosclerosis of native arteries of extremities, right leg (principal)

== ENCOUNTER → 2023-09-24 | Outpatient (REF) | payer MEDICARE ==
[~2023-09-24] MED LIST changes: -FLUT50SP17 INH; +FLUTISP INH
[2023-09-24 14:54] LABS: HEPATITIS C VIRUS ABY INDEX < 0.02 INDEX (<0.8)
[2023-09-25 16:10] LABS: ANTI-MITOCHONDRIAL ANTIBODY <20.0 Units (0.0-20.0); ANTINUCLEAR ANTIBODIES DIRECT Negative (Negative)
== END ==
LOC: M LAB REF 13:00
PROVIDERS: ATTEND Internal Medicine
DX: K76.0 Fatty (change of) liver, not elsewhere classified (principal); R74.8 Abnormal levels of other serum enzymes

== ENCOUNTER → 2023-10-15 | Outpatient (CLI) | payer MEDICARE | LOC: M RAD 08:42 | PROVIDERS: ATTEND Internal Medicine | DX: K76.0 Fatty (change of) liver, not elsewhere classified (principal) ==

== ENCOUNTER → 2024-02-18 | Outpatient (CLI) | payer OTHER | LOC: M RAD 08:19 | PROVIDERS: ATTEND Internal Medicine Pulmonary Disease | DX: Z12.2 Encounter for screening for malignant neoplasm of respiratory organs (principal); Z87.891 Personal history of nicotine dependence ==

== ENCOUNTER → 2024-10-01 | Outpatient (CLI) | payer MEDICARE | LOC: M RAD 08:10 | PROVIDERS: ATTEND Internal Medicine | DX: K76.0 Fatty (change of) liver, not elsewhere classified (principal) ==

== ENCOUNTER → 2025-03-15 | Outpatient (CLI) | payer MEDICARE ==
[~2025-03-15] MED LIST changes: +EZET10TA57 PO; +NITR0.4S14 SL; +TREL1AER INH
== END ==
LOC: M RAD 08:00
PROVIDERS: ATTEND Internal Medicine Pulmonary Disease
DX: Z87.891 Personal history of nicotine dependence (principal)

== ENCOUNTER → 2025-03-28 | Outpatient (REF) | payer MEDICARE | LOC: M LAB REF 14:05 | PROVIDERS: ATTEND Internal Medicine | DX: K76.0 Fatty (change of) liver, not elsewhere classified (principal) ==

== ENCOUNTER → 2025-05-23 | Outpatient (CLI) | payer MEDICARE ==
[~2025-05-23] MED LIST changes: -BACTDSTA PO; +SULF-8 PO
== END ==
LOC: M RAD 07:47
PROVIDERS: ATTEND Internal Medicine
DX: K74.00 Hepatic fibrosis, unspecified (principal)